=== PATIENT | male | born 1975 | race Caucasian/White ===

== ENCOUNTER → 2017-01-10 | Outpatient (CLI) | payer SELFPAY ==
[2017-01-10 09:53] LABS: BASO % 0.5 % (0.0-1.0); EOS # 0.2 K/mm3 (0.0-0.50); EOS % 1.5 % (0.0-3.0); LYMPH # 2.7 K/mm3 (1.5-4.5); LYMPH % 22.8 % (24.0-44.0); MEAN CORPUSCULAR HEMOGLOBIN 30.8 pg (27.0-33.0); MEAN CORPUSCULAR VOLUME 88.1 fl (80.0-96.0); MONO # 0.5 K/mm3 (0.0-0.8); MONO % 4.4 % (0.0-5.0); NEUTROPHILS # 7.5 K/mm3 (1.8-7.7); NEUTROPHILS % 68.6 % (36.0-66.0); RED CELL DISTRIBUTION WIDTH 12.7 % (11.5-14.5); WHITE BLOOD COUNT 10.9 K/mm3 (4.0-10.0)
[2017-01-10 10:38] LABS: ALBUMIN 3.9 GM/DL (3.2-5.2); ALBUMIN/GLOBULIN RATIO 1.11 (1.00-1.93); ALKALINE PHOSPHATASE 73 U/L (45-117); ALT/SGPT 22 U/L (12-78); ANION GAP 10 MEQ/L (8-16); AST/SGOT 12 U/L (15-37); BILIRUBIN,TOTAL 0.5 MG/DL (0.2-1.0); BLOOD UREA NITROGEN 16 MG/DL (7-18); CALCIUM LEVEL 8.7 MG/DL (8.5-10.1); CARBON DIOXIDE LEVEL 26 MEQ/L (21-32); CHLORIDE LEVEL 99 MEQ/L (98-107); CHOLESTEROL LEVEL 290 MG/DL (<200); CREATININE FOR GFR 0.67 MG/DL (0.70-1.30); GLOMERULAR FILTRATION RATE > 60.0 (>60); GLUCOSE, FASTING 260 MG/DL (70-105); POTASSIUM SERUM 4.1 MEQ/L (3.5-5.1); SODIUM LEVEL 135 MEQ/L (136-145); TOTAL PROTEIN 7.4 GM/DL (6.4-8.2); TRIGLYCERIDES LEVEL 892 MG/DL (<150)
== END ==
LOC: M LAB 09:14
PROVIDERS: ATTEND Physician Assistant Medical
DX: E11.9 Type 2 diabetes mellitus without complications (principal)

== ENCOUNTER → 2017-03-07 | Outpatient (CLI) | payer MEDICAID ==
[2017-03-07 08:24] LABS: ALBUMIN/GLOBULIN RATIO 1.11 (1.00-1.93); ALKALINE PHOSPHATASE 73 U/L (45-117); ALT/SGPT 28 U/L (12-78); ANION GAP 7 MEQ/L (8-16); AST/SGOT 14 U/L (15-37); BILIRUBIN,TOTAL 0.4 MG/DL (0.2-1.0); BLOOD UREA NITROGEN 12 MG/DL (7-18); CALCIUM LEVEL 9.5 MG/DL (8.5-10.1); CARBON DIOXIDE LEVEL 29 MEQ/L (21-32); CHLORIDE LEVEL 103 MEQ/L (98-107); CHOLESTEROL LEVEL 130 MG/DL (<200); CREATININE FOR GFR 0.74 MG/DL (0.70-1.30); GLOMERULAR FILTRATION RATE > 60.0 (>60); GLUCOSE, FASTING 157 MG/DL (70-105); POTASSIUM SERUM 4.6 MEQ/L (3.5-5.1); SODIUM LEVEL 139 MEQ/L (136-145); TOTAL PROTEIN 7.6 GM/DL (6.4-8.2); TRIGLYCERIDES LEVEL 189 MG/DL (<150)
== END ==
LOC: M LAB 06:35
PROVIDERS: ATTEND Physician Assistant Medical
DX: E11.9 Type 2 diabetes mellitus without complications (principal)

== ENCOUNTER → 2017-05-11 | Outpatient (CLI) | payer OTHER ==
[2017-05-11 11:26] LABS: BLOOD UREA NITROGEN 14 MG/DL (7-18); CREATININE FOR GFR 0.66 MG/DL (0.70-1.30); GLOMERULAR FILTRATION RATE > 60.0 (>60); GLUCOSE, FASTING 134 MG/DL (70-105); SODIUM LEVEL 140 MEQ/L (136-145)
[2017-05-11 11:27] LABS: ALKALINE PHOSPHATASE 71 U/L (45-117); ALT/SGPT 25 U/L (12-78); ANION GAP 8 MEQ/L (8-16); AST/SGOT 13 U/L (15-37); BILIRUBIN,TOTAL 0.5 MG/DL (0.2-1.0); CARBON DIOXIDE LEVEL 27 MEQ/L (21-32); CHLORIDE LEVEL 105 MEQ/L (98-107); CHOLESTEROL LEVEL 119 MG/DL (<200); POTASSIUM SERUM 5.3 MEQ/L (3.5-5.1); TRIGLYCERIDES LEVEL 174 MG/DL (<150)
[2017-05-11 11:28] LABS: ALBUMIN 4.1 GM/DL (3.2-5.2); ALBUMIN/GLOBULIN RATIO 1.21 (1.00-1.93); TOTAL PROTEIN 7.5 GM/DL (6.4-8.2)
== END ==
LOC: M LAB 09:20
PROVIDERS: ATTEND Physician Assistant Medical
DX: E11.9 Type 2 diabetes mellitus without complications (principal)

== ENCOUNTER → 2017-06-13 | Outpatient (CLI) | payer OTHER ==
[2017-06-13 09:51] LABS: ALBUMIN 4.1 GM/DL (3.2-5.2); ALBUMIN/GLOBULIN RATIO 1.11 (1.00-1.93); ALKALINE PHOSPHATASE 67 U/L (45-117); ALT/SGPT 25 U/L (12-78); ANION GAP 9 MEQ/L (8-16); AST/SGOT 14 U/L (15-37); BILIRUBIN,TOTAL 0.5 MG/DL (0.2-1.0); BLOOD UREA NITROGEN 16 MG/DL (7-18); CALCIUM LEVEL 9.6 MG/DL (8.5-10.1); CARBON DIOXIDE LEVEL 27 MEQ/L (21-32); CHLORIDE LEVEL 104 MEQ/L (98-107); CREATININE FOR GFR 0.64 MG/DL (0.70-1.30); GLOMERULAR FILTRATION RATE > 60.0 (>60); GLUCOSE, FASTING 126 MG/DL (70-105); POTASSIUM SERUM 5.1 MEQ/L (3.5-5.1); SODIUM LEVEL 140 MEQ/L (136-145); THYROXINE (T4) 8.6 UG/DL (4.5-12.0); TOTAL PROTEIN 7.8 GM/DL (6.4-8.2)
== END ==
LOC: M LAB 08:41
PROVIDERS: ATTEND Physician Assistant Medical
DX: E11.9 Type 2 diabetes mellitus without complications (principal)

== ENCOUNTER → 2017-12-26 | Outpatient (CLI) | payer OTHER ==
[2017-12-26 12:37] LABS: BASO # 0.1 10^3/uL (0.0-0.2); BASO % 0.6 % (0.0-1.0); EOS # 0.2 10^3/uL (0.0-0.50); EOS % 1.1 % (0.0-3.0); HEMATOCRIT 45.6 % (42.0-52.0); IMMATURE GRANULOCYTE % 0.4 % (0-3.0); LYMPH # 3.4 10^3/uL (1.5-4.5); LYMPH % 22.5 % (24.0-44.0); MEAN CORPUSCULAR HEMOGLOBIN 30.5 pg (27.0-33.0); MEAN CORPUSCULAR HGB CONC 35.1 g/dl (32.0-36.5); MONO # 0.9 10^3/uL (0.0-0.8); MONO % 6.3 % (0.0-5.0); NEUTROPHILS # 10.4 10^3/uL (1.8-7.7); NEUTROPHILS % 69.1 % (36.0-66.0); PLATELET COUNT, AUTOMATED 237 10^3/uL (150-450); RED BLOOD COUNT 5.24 10^6/uL (4.30-6.10); RED CELL DISTRIBUTION WIDTH 12.6 % (11.5-14.5)
[2017-12-26 12:54] LABS: ALBUMIN 4.3 GM/DL (3.2-5.2); ALBUMIN/GLOBULIN RATIO 1.26 (1.00-1.93); ALKALINE PHOSPHATASE 70 U/L (45-117); ALT/SGPT 33 U/L (12-78); ANION GAP 6 MEQ/L (8-16); AST/SGOT 18 U/L (7-37); BILIRUBIN,TOTAL 0.8 MG/DL (0.2-1.0); BLOOD UREA NITROGEN 17 MG/DL (7-18); CALCIUM LEVEL 9.1 MG/DL (8.5-10.1); CARBON DIOXIDE LEVEL 28 MEQ/L (21-32); CHLORIDE LEVEL 105 MEQ/L (98-107); CHOLESTEROL LEVEL 108 MG/DL (<200); CHOLESTEROL RISK RATIO 3.375 (<5); CREATININE FOR GFR 0.59 MG/DL (0.70-1.30); GLOMERULAR FILTRATION RATE > 60.0 (>60); GLUCOSE, FASTING 112 MG/DL (70-100); HDL CHOLESTEROL 32 MG/DL (>40); LDL CHOLESTEROL 49.8 MG/DL (<100); NON-HDL-C 76 MG/DL; POTASSIUM SERUM 4.2 MEQ/L (3.5-5.1); SODIUM LEVEL 139 MEQ/L (136-145); TOTAL PROTEIN 7.7 GM/DL (6.4-8.2); TRIGLYCERIDES LEVEL 131 MG/DL (<150)
== END ==
LOC: M ADAMS 10:57
DX: E11.69 Type 2 diabetes mellitus with other specified complication (principal)
CPT/HCPCS: 80053

== ENCOUNTER → 2018-01-16 | Outpatient (REF) | payer OTHER | LOC: M SFHCADAM 18:35 | DX: J02.9 Acute pharyngitis, unspecified (principal) ==

== ENCOUNTER → 2018-05-15 | Outpatient (REF) | payer OTHER ==
[2018-05-15 12:55] LABS: BASO # 0.1 10^3/uL (0.0-0.2); BASO % 0.8 % (0.0-1.0); EOS # 0.3 10^3/uL (0.0-0.50); EOS % 2.9 % (0.0-3.0); HEMATOCRIT 44.6 % (42.0-52.0); HEMOGLOBIN 15.1 g/dl (13.5-17.5); IMMATURE GRANULOCYTE % 0.7 % (0-3.0); LYMPH # 2.8 10^3/uL (1.5-4.5); MEAN CORPUSCULAR HEMOGLOBIN 30.3 pg (27.0-33.0); MEAN CORPUSCULAR HGB CONC 33.9 g/dl (32.0-36.5); MEAN CORPUSCULAR VOLUME 89.6 fl (80.0-96.0); MONO # 0.7 10^3/uL (0.0-0.8); MONO % 7.2 % (0.0-5.0); NEUTROPHILS # 5.2 10^3/uL (1.8-7.7); NEUTROPHILS % 57.4 % (36.0-66.0); PLATELET COUNT, AUTOMATED 222 10^3/uL (150-450); RED BLOOD COUNT 4.98 10^6/uL (4.30-6.10); RED CELL DISTRIBUTION WIDTH 12.9 % (11.5-14.5)
[2018-05-15 13:51] LABS: ERYTHROCYTE SEDIMENTATION RATE 14 mm/hr (0-15)
[2018-05-15 14:05] LABS: ALBUMIN 3.9 GM/DL (3.2-5.2); ALBUMIN/GLOBULIN RATIO 1.08 (1.00-1.93); ALKALINE PHOSPHATASE 85 U/L (45-117); ALT/SGPT 27 U/L (12-78); ANION GAP 8 MEQ/L (8-16); AST/SGOT 12 U/L (7-37); BILIRUBIN,TOTAL 0.4 MG/DL (0.2-1.0); BLOOD UREA NITROGEN 15 MG/DL (7-18); C REACTIVE PROTEIN QUANTITATIV 0.51 MG/DL (0.00-0.30); CALCIUM LEVEL 8.9 MG/DL (8.5-10.1); CARBON DIOXIDE LEVEL 26 MEQ/L (21-32); CHLORIDE LEVEL 106 MEQ/L (98-107); CREATININE FOR GFR 0.58 MG/DL (0.70-1.30); GLOMERULAR FILTRATION RATE > 60.0 (>60); GLUCOSE, FASTING 128 MG/DL (70-100); POTASSIUM SERUM 4.5 MEQ/L (3.5-5.1); RHEUMATOID FACTOR QUANT < 10.0 IU/ML (<15.0); SODIUM LEVEL 140 MEQ/L (136-145); TOTAL PROTEIN 7.5 GM/DL (6.4-8.2)
[2018-05-15 16:50] LABS: ESTIMATED AVERAGE GLUCOSE 186 MG/DL (60-110); HEMOGLOBIN A1c 8.1 %
[2018-05-16 14:28] LABS: ANTINUCLEAR ANTIBODIES DIRECT Negative (Negative)
== END ==
LOC: M LABDRAW1 12:29
DX: M25.541 Pain in joints of right hand (principal)

== ENCOUNTER → 2018-05-22 | Outpatient (REF) | payer OTHER ==
[2018-05-22 13:36] LABS: MALB URINE SIEMENS 68.8 MG/L; MAU/CREAT RATIO 59.8 MCG/MG (0.0-30.0)
== END ==
LOC: M SFHCADAM 08:32
DX: E11.69 Type 2 diabetes mellitus with other specified complication (principal)
CPT/HCPCS: 82043

== ENCOUNTER → 2018-10-18 | Outpatient (CLI) | payer OTHER ==
--- NOTE | 2018-10-18 14:32 | REP ---
CT Head without contrast HISTORY: Headache COMPARISON: None There is no intraparenchymal hemorrhage, acute infarct, mass or midline shift. The ventricular system is normal in appearance. There is no extra cerebral collection. There is no fracture. The visualized sinuses are clear. IMPRESSION: There is no intracranial lesion. Electronically Signed by Kraig Martin MD 10/18/2018 02:23 P
== END ==
LOC: M RAD 14:02
PROVIDERS: ATTEND Family Medicine
DX: G44.52 New daily persistent headache (NDPH) (principal)

== ENCOUNTER 2019-09-24 11:16 | Emergency (ER) | payer OTHER, SELFPAY ==
[~2019-09-24] VITALS: Ht 167.6 cm; Wt 86.7 kg
[2019-09-24] MEDS ORDERED: ATOR40TA75 (11:22)
[2019-09-24] MEDS ORDERED: STEG5TAB (11:22)
[2019-09-24] MEDS ORDERED: METF10004 (11:22)
[2019-09-24] MEDS ORDERED: TRUL0.5I (11:22)
[2019-09-24] MEDS ORDERED: LISI-542 (11:22)
[2019-09-24] MEDS ORDERED: GEMF600T5 (11:22)
[2019-09-24 11:57] LABS: BASO # 0.1 10^3/uL (0.0-0.2); BASO % 0.8 % (0.0-1.0); EOS # 0.1 10^3/uL (0.0-0.5); EOS % 1.7 % (0.0-3.0); HEMATOCRIT 44.1 % (42.0-52.0); HEMOGLOBIN 15.4 g/dl (13.5-17.5); LYMPH % 35.3 % (24.0-44.0); MEAN CORPUSCULAR HEMOGLOBIN 31.2 pg (27.0-33.0); MEAN CORPUSCULAR HGB CONC 34.9 g/dl (32.0-36.5); MEAN CORPUSCULAR VOLUME 89.3 fl (80.0-96.0); MONO # 0.8 10^3/uL (0.0-0.8); MONO % 9.6 % (0.0-5.0); NEUTROPHILS # 4.4 10^3/uL (1.5-8.5); PLATELET COUNT, AUTOMATED 223 10^3/uL (150-450); RED BLOOD COUNT 4.94 10^6/uL (4.30-6.10); WHITE BLOOD COUNT 8.4 10^3/uL (4.0-10.0)
[2019-09-24] MEDS ORDERED: NS 1,000 ML IV ONE (12:00)
[2019-09-24 12:24] LABS: ALBUMIN 3.9 GM/DL (3.2-5.2); ALT/SGPT 23 U/L (12-78); BILIRUBIN,DIRECT 0.2 MG/DL (0.0-0.2); BILIRUBIN,TOTAL 0.5 MG/DL (0.2-1.0); BLOOD UREA NITROGEN 12 MG/DL (7-18); CALCIUM LEVEL 9.1 MG/DL (8.5-10.1); CARBON DIOXIDE LEVEL 25 MEQ/L (21-32); CHLORIDE LEVEL 105 MEQ/L (98-107); CREATININE FOR GFR 0.81 MG/DL (0.70-1.30); GLOMERULAR FILTRATION RATE > 60.0 (>60); GLUCOSE, FASTING 269 MG/DL (70-100); LIPASE 436 U/L (73-393); POTASSIUM SERUM 4.1 MEQ/L (3.5-5.1); SODIUM LEVEL 136 MEQ/L (136-145); TOTAL PROTEIN 7.2 GM/DL (6.4-8.2)
[2019-09-24] MEDS ORDERED: ISOVUE-370 76% 100ML VIAL (Q9967) As Ordered ONE (12:40)
--- NOTE | 2019-09-24 13:23 | REP ---
Clinical: Left upper quadrant pain. History pancreatitis. Technique: Axial contrast enhanced images from the lung bases to the pubic symphysis with coronal and sagittal re-formations using 100 ml Isovue 370 intravenous contrast material. Comparison: None. Findings: Large multicystic changes in the left upper quadrant consistent with pseudocysts related to given history of prior pancreatitis. The largest obvious collection measures greater than 11.9 x 8.2 x 12.0 cm. The pancreas itself is otherwise normal and no peripancreatic inflammatory stranding is noted. Fatty infiltration to the liver doubt focal hepatic lesion. Spleen, gallbladder, bilateral adrenal glands and kidneys are relatively normal. The enteric system is without obstruction or acute inflammatory process. Diverticulosis noted without acute diverticulitis. Pelvis demonstrates normal prostate/seminal vesicles and bladder. No ascites. No free air. No adenopathy. Abdominal aorta without aneurysm or dissection. Osseous structures are intact. Lung bases are clear. Impression: Large multicystic changes in the left upper quadrant consistent with pseudocysts related to prior pancreatitis. Electronically Signed by Tyler Love MD 09/24/2019 01:15 P
[2019-09-24 13:48] LABS: AMYLASE 66 U/L (25-115)
[2019-09-24] MEDS ORDERED: KETOROLAC 30 MG/ML VIAL (J1885) IV ONE (14:00)
[2019-09-24] MEDS ORDERED: ACETAMINOPHEN 325 MG TAB PO ONE (14:00)
[2019-09-24 15:40] VITALS: BP 115/71
--- NOTE | 2019-09-26 08:12 | ED PDOC ---
Post-Departure Follow-Up guy bass faxed fomral report of ct abd/p for fu Basil Perez MD Sep 26, 2019 08:12
== END 2019-09-24 15:47 | disposition home or self-care (01) ==
LOC: M ED 11:16
DX: K85.90 Acute pancreatitis without necrosis or infection, unspecified (principal); E11.9 Type 2 diabetes mellitus without complications; I10 Essential (primary) hypertension; E78.5 Hyperlipidemia, unspecified; Z79.899 Other long term (current) drug therapy; Z79.84 Long term (current) use of oral hypoglycemic drugs; F17.210 Nicotine dependence, cigarettes, uncomplicated
CPT/HCPCS: 36415; 74177; 80048; 80076; 81001; 82150; 83690; 85025; 96361; 96374; 99284; J1885; Q9967

== ENCOUNTER 2019-10-11 15:46 | Inpatient (IN) | payer OTHER ==
[~2019-10-11] VITALS: Ht 167.6 cm; Wt 88.5 kg
[~2019-10-11 15:46] MED LIST: ATOR40TA75 PO; GEMF600T5 PO; LISI-542 PO; METF10004 PO; STEG5TAB PO; TRUL0.5I SC
[2019-10-11] MEDS ORDERED: ONE A DAY VIT (15:53)
[2019-10-11 16:25] LABS: BASO # 0.1 10^3/uL (0.0-0.2); BASO % 0.6 % (0.0-1.0); EOS # 0.1 10^3/uL (0.0-0.5); EOS % 1.1 % (0.0-3.0); HEMATOCRIT 48.1 % (42.0-52.0); HEMOGLOBIN 16.2 g/dl (13.5-17.5); LYMPH # 3.6 10^3/uL (1.5-5.0); LYMPH % 29.6 % (24.0-44.0); MEAN CORPUSCULAR HEMOGLOBIN 30.5 pg (27.0-33.0); MEAN CORPUSCULAR HGB CONC 33.7 g/dl (32.0-36.5); MEAN CORPUSCULAR VOLUME 90.4 fl (80.0-96.0); MONO # 0.9 10^3/uL (0.0-0.8); MONO % 7.5 % (0.0-5.0); NEUTROPHILS # 7.4 10^3/uL (1.5-8.5); NEUTROPHILS % 60.5 % (36.0-66.0); PLATELET COUNT, AUTOMATED 250 10^3/uL (150-450); RED BLOOD COUNT 5.32 10^6/uL (4.30-6.10); WHITE BLOOD COUNT 12.2 10^3/uL (4.0-10.0)
[2019-10-11 16:59] LABS: ALBUMIN 4.2 GM/DL (3.2-5.2); ALT/SGPT 26 U/L (12-78); BILIRUBIN,DIRECT < 0.1 MG/DL (0.0-0.2); BILIRUBIN,TOTAL 0.4 MG/DL (0.2-1.0); LIPASE 1658 U/L (73-393); TOTAL PROTEIN 7.7 GM/DL (6.4-8.2)
[2019-10-11] MEDS ORDERED: NS 1,000 ML IV ONE (17:15)
--- NOTE | 2019-10-11 17:28 | REP ---
Chest x-ray: Two views. History: Abdominal pain . Comparison study: June 25, 2016 . Findings: The lungs are well inflated and free of infiltrate. The pleural angles are sharp. The heart size is normal. Pulmonary vasculature is not increased. No significant bony abnormality is seen. Impression: Negative chest x-ray. Electronically Signed by Jaguar Rae MD 10/11/2019 05:19 P
[2019-10-11] MEDS ORDERED: ISOVUE-370 76% 100ML VIAL (Q9967) As Ordered ONE (17:40)
[2019-10-11 17:55] LABS: AMYLASE 91 U/L (25-115)
--- NOTE | 2019-10-11 18:09 | REPVR ---
PROCEDURE INFORMATION: Exam: CT Abdomen And Pelvis With Contrast Exam date and time: 10/11/2019 5:42 PM Age: 43 years old Clinical indication: Abdominal pain; Localized; Left upper quadrant (luq); Additional info: Luq pain, pancreatitis, R/O complications TECHNIQUE: Imaging protocol: Computed tomography of the abdomen and pelvis with intravenous contrast. Radiation optimization: All CT scans at this facility use at least one of these dose optimization techniques: automated exposure control; mA and/or kV adjustment per patient size (includes targeted exams where dose is matched to clinical indication); or iterative reconstruction. Contrast material: ISOVUE 370; Contrast volume: 100 ml; Contrast route: IV; COMPARISON: CT ABD/PEL W/IV CONTRAST ONLY 09/24/2019 12:56 PM FINDINGS: Lungs: There is bibasilar compressive atelectasis. Liver: Moderate central spinal stenosis L4-L5 with a posterior disc protrusion.There is a diffuse decrease in hepatic parenchymal density, consistent with fatty infiltration. Gallbladder and bile ducts: Normal. No calcified stones. No ductal dilation. Pancreas: There is a large multilocular cystic pancreatic tail mass measuring measuring 14.4 x 7.6 x 14.4 cm. Lesion demonstrates multiple thin and thick septations as well as a partially calcified scar superiorly. 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 Lesion is stable in comparison to the prior study. Spleen: Normal. No splenomegaly. Adrenals: Normal. No mass. Kidneys and ureters: There is mass effect on the lateral margin of the left kidney by the above described pancreatic mass. Kidneys otherwise unremarkable. Stomach and bowel: Unremarkable. No obstruction. No mucosal thickening. Appendix: No evidence of appendicitis. Intraperitoneal space: Unremarkable. No free air. No significant fluid collection. Vasculature: Unremarkable. No abdominal aortic aneurysm. Lymph nodes: Unremarkable. No enlarged lymph nodes. Bladder: Unremarkable as visualized. Reproductive: The prostate gland demonstrates mild hyperplasia. Bones/joints: Unremarkable. No acute fracture. Soft tissues: Unremarkable. IMPRESSION: 1. Moderate central spinal stenosis L4-L5 with a posterior disc protrusion.There is a diffuse decrease in hepatic parenchymal density, consistent with fatty infiltration. 2. Multilocular cystic pancreatic tail mass consistent with a serous cystic neoplasm. Finding is stable as noted above. 3. Mild prostatic hyperplasia. Electronically signed by: Jaydon Penny On 10/11/2019 18:08:38 PM
[2019-10-11] MEDS ORDERED: VITMTA PO (19:08)
--- NOTE | 2019-10-11 19:09 | HPEPDOC ---
[facility] Medical History & Physical Date of Admission Oct 11, 2019 Date of Service: Oct 11, 2019 Primary Care Physician: Abdelrahman Almeida MD Attending Physician: HARRY MORRIS DO History and Physical TIME OF SERVICE: 7:50 PM CHIEF COMPLAINT: Abdominal pain HISTORY OF PRESENT ILLNESS: This is a 43-year-old male who presented with complaints of left upper quadrant pain that radiates to his back since September 24. Associated symptoms include nausea, vomiting and poor appetite. CT of the abdomen done on September 24 showed multicystic changes consistent with pseudocyst and prior pancreatitis. Unfortunately, over the S2 weeks pain has become worse. Since the ER today by his PCP. Repeat CT showed a left cystic pancreatic tail mass that's 14.4 x 7 x 14.4 cm; according to the radiologist. This was concerning for pancreatic serocystic neoplasm . REVIEW OF SYSTEMS: 12 point review of systems negative except as listed in HPI PAST MEDICAL/ SURGICAL HISTORY: Type 2 diabetes. Chronic hypertension History of pancreatitis Hyperlipidemia. Left inguinal hernia repair SOCIAL HISTORY: He smokes. He drinks alcohol occasionally FAMILY HISTORY: Diabetes CAD Atrial fibrillation ALLERGIES: Please see below. HOME MEDICATIONS: Please see below. PHYSICAL EXAMINATION: VITAL SIGNS: Please see below. GEN: well-nourished / well developed/ anxious INTEGUMENT: No Donnelly sign, no Tryon's sign HEENT: NCAT CVS: RRR/NMRG/ LUNGS: able to speak full sentences without stopping to take a breath / no coughing / lungs are clear to auscultation bilaterally on room air ABDOMEN: Contour (obese) / the abdomen is tender with palpation MSK/EXTREMITIES: range of motion intact in all 4 extremities NEURO: CN 2-12 are grossly intact / speech is not dysarthric PSYCH: alert and oriented to person place and time/ able to understand and follow all commands / LABORATORY DATA: See below. IMAGING: CT of the abdomen September 24 2019 "Findings: Large multicystic changes in the left upper quadrant consistent with pseudocysts related to given history of prior pancreatitis. The largest obvious collection measures greater than 11.9 x 8.2 x 12.0 cm. The pancreas itself is otherwise n ormal and no peripancreatic inflammatory stranding is noted. Fatty infiltration to the liver doubt focal hepatic lesion. Spleen, gallbladder, bilateral adrenal glands and kidneys are relatively normal. The enteric system is without obstruction or acute inflammatory process. Diverticulosis noted without acute diverticulitis. Pelvis demonstrates normal prostate/seminal vesicles and bladder. No ascites. No free air. No adenopathy. Abdominal aorta without aneurysm or dissection. Osseous structures are intact. Lung bases are clear. Impression: Large multicystic changes in the left upper quadrant consistent with pseudocysts related to prior pancreatitis. CT of abdomen October 11 2019 "FINDINGS: Lungs: There is bibasilar compressive atelectasis. Liver: Moderate central spinal stenosis L4-L5 with a posterior disc protrusion.There is a diffuse decrease in hepatic parenchymal density, consi stent with fatty infiltration. Gallbladder and bile ducts: Normal. No calcified stones. No ductal dilation. Pancreas: There is a large multilocular cystic pancreatic tail mass measuring measuring 14.4 x 7.6 x 14.4 cm. Lesion demonstrates multiple thin and thick septations as well as a partially calcified scar superiorly. 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 Lesion is stable in comparison to the prior study. Spleen: Normal. No splenomegaly. Adrenals: Normal. No mass. Kidneys and ureters: There is mass effect on the lateral margin of the left kidney by the above described pancreatic mass. Kidneys otherwise unremarkable. Stomach and bowel: Unremarkable. No obstruction. No mucosal thickening. Appendix: No evidence of appendicitis. Intraperitoneal space: Unremarkable. No free air. No significant fluid collection. Vasculature: Unremarkable. No abdominal aortic aneurysm. Lymph nodes: Unremarkable. No enlarged lymph nodes. Bladder: Unremarkable as visualized. Reproductive: The prostate gland demonstrates mild hyperplasia. Bones/joints: Unremarkable. No acute fracture. Soft tissues: Unremarkable. IMPRESSION: 1. Moderate central spinal stenosis L4-L5 with a posterior disc protrusion.There is a diffuse decrease in hepatic parenchymal density, consistent with fatty infiltration. 2. Multilocular cystic pancreatic tail mass consistent with a serous cystic neoplasm. Finding is stable as noted above. 3. Mild prostatic hyperplasia. " MICROBIOLOGY: Please see below. ASSESSMENT: Mr. Nieves is a 43-year-old with a past medical history of diabetes, hypertension, pancreatitis, and hyperlipidemia, who is admitted for management of pain related to acute pancreatitis/pancreatic mass. PLAN: 1. Pancreatic tail mass/acute pancreatitis Diagnosis made on the basis of abdominal pain + elevated lipase His LFTs are within normal limits therefore obstruction is unlikely Plan: Clear liquid diet/ IVF / morphine PRN with scheduled gabapentin for pain / the daytime team may consult IR for biopsy / hold lisinopril as it can also cause worsening of the pancreatitis 2. Diabetes Plan: f/u accuchecks & A1C / hypoglycemia protocol / sliding scale insulin / hold oral anti-glycemics 3. Chronic hypertension. Plan: Hold lisinopril/start amlodipine 4. Tobacco abuse Tobacco cessation education/nicotine patch 5. Obesity BMI 30.9. He has coexisting diabetes. This complicates care Plan: can f/u w PCP for STOP BANG questionnaire, media senior recruiter consult DVT prophylaxis with SCDs in case gets a biopsy DISPOSITION: Likely home after more than 2 midnight's stay Vital Signs Vital Signs Date Time Temp Pulse Resp B/P (MAP) Pulse Ox O2 Delivery O2 Flow Rate FiO2 10/11/19 16:14 10/11/19 15:46 98.9 113 18 98 Room Air Laboratory Data Labs 24H Laboratory Tests 2 10/11/19 16:06: Immature Granulocyte % (Auto) 0.7, Neutrophils (%) (Auto) 60.5, Lymphocytes (%) (Auto) 29.6, Monocytes (%) (Auto) 7.5H, Eosinophils (%) (Auto) 1.1, Basophils (%) (Auto) 0.6, Neutrophils # (Auto) 7.4, Lymphocytes # (Auto) 3.6, Monocytes # (Auto) 0.9H, Eosinophils # (Auto) 0.1, Basophils # (Auto) 0.1, Nucleated Red Blood Cells % (auto) 0.0, Urine Color YELLOW, Urine Appearance CLEAR, Urine pH 6.0, Urine Specific [place] 1.032, Urine Protein NEGATIVE, Urine Glucose (UA) 3+H, Urine Ketones NEGATIVE, Urine Blood NEGATIVE, Urine Nitrite NEGATIVE, Urine Bilirubin NEGATIVE, Urine Urobilinogen 0.2, Urine Leukocyte Esterase NEGATIVE, Urine WBC (Auto) 4H, Urine RBC (Auto) 2, Urine Hyaline Casts (Auto) 0, Urine Bacteria (Auto) NEGATIVE, Urine Squamous Epithelial Cells 1, Urine Mucus (Auto) SMALL, Urine Sperm (Auto) , Total Bilirubin 0.4, Direct Bilirubin < 0.1, Aspartate Amino Transf (AST/SGOT) 16, Alanine Aminotransferase (ALT/SGPT) 26, Alkaline Phosphatase 75, Total Protein 7.7, Albumin 4.2, Albumin/Globulin Ratio 1.20, Amylase Level 91, Lipase 1658H 10/11/19 16:08: POC Glucose (Misc Panel) 223H, POC Sodium (Misc Panel) 136, POC Potassium (Misc Panel) 3.6, POC Chloride (Misc Panel) 100, POC Total CO2 (Misc Panel) 26.0, POC Blood Urea Nitrogen (Misc Panel 18, POC Ionized Calcium (Misc Panel) 4.7, POC Creatinine (Misc Panel) 0.6, POC Hematocrit (Misc Panel) 47.0 CBC/BMP Laboratory Tests 10/11/19 16:06 Home Medications Scheduled Atorvastatin Calcium (Atorvastatin Calcium) 40 Mg Tablet, 40 MG PO DAILY Dulaglutide (Trulicity) 1.5 Mg/0.5 Ml Pen.injctr, 1.5 MG SC QWEEK SUNDAYS Ertugliflozin Pidolate (Steglatro) 5 Mg Tablet, 5 MG PO DAILY Gemfibrozil (Gemfibrozil) 600 Mg Tablet, 600 MG PO BID Lisinopril (Lisinopril) 5 Mg Tablet, 5 MG PO DAILY Metformin HCl (Metformin HCl) 1,000 Mg Tablet, 1,000 MG PO BID Multivitamins (Thera M Plus Tablet) 1 Each Tablet, 1 TAB PO DAILY Allergies Coded Allergies: No Known Drug Allergies (Verified Allergy, Unknown, 09/24/19) A-FIB/CHADSVASC A-FIB History Current/History of A-Fib/PAF?: No Current PO Anticoag Therapy: No SILVESTRE GÓMEZ MD Oct 11, 2019 19:09
[2019-10-11] MEDS: NS 1,000 ML IV SCH ×2 (19:15→23:02)
[2019-10-11 20:45] VITALS: BP 108/70
[2019-10-11] MEDS ORDERED: GLUCAGON FOR INJ 1 MG VIAL (J1610) SC PRN (20:45)
[2019-10-11] MEDS ORDERED: ENTER DRUG NAME HERE (PATIENT'S OWN MED) SC SCH (20:45)
[2019-10-11] MEDS ORDERED: GLUCOSE 4 GM CHEW TABLET PO PRN (20:45)
[2019-10-11] MEDS ORDERED: DEXTROSE 50% 50 ML SYRINGE IV PRN (20:45)
[2019-10-11] MEDS: HumaLOG INSULIN (NovoLOG) PER UNIT SC SCH (21:00)
[2019-10-11] MEDS: NICOTINE 21MG/24HR 1 EA TRANSDERMAL TD SCH (21:47)
[2019-10-11] MEDS: GABAPENTIN 300 MG CAP PO SCH ×2 (22:30→23:02)
[2019-10-12] MEDS: MORPHINE 4 MG/ML 1ML VIAL/SYRINGE (J2270) IV PRN ×3 (05:48→15:39)
[2019-10-12 06:00] VITALS: BP 108/68
[2019-10-12 06:34] LABS: HEMATOCRIT 43.2 % (42.0-52.0); HEMOGLOBIN 14.6 g/dl (13.5-17.5); MEAN CORPUSCULAR HEMOGLOBIN 30.7 pg (27.0-33.0); MEAN CORPUSCULAR HGB CONC 33.8 g/dl (32.0-36.5); MEAN CORPUSCULAR VOLUME 90.9 fl (80.0-96.0); PLATELET COUNT, AUTOMATED 208 10^3/uL (150-450); RED BLOOD COUNT 4.75 10^6/uL (4.30-6.10); WHITE BLOOD COUNT 9.7 10^3/uL (4.0-10.0)
[2019-10-12 07:07] LABS: BLOOD UREA NITROGEN 15 MG/DL (7-18); CALCIUM LEVEL 8.3 MG/DL (8.5-10.1); CARBON DIOXIDE LEVEL 23 MEQ/L (21-32); CHLORIDE LEVEL 108 MEQ/L (98-107); CREATININE FOR GFR 0.74 MG/DL (0.70-1.30); GLOMERULAR FILTRATION RATE > 60.0 (>60); GLUCOSE, FASTING 146 MG/DL (70-100); MAGNESIUM LEVEL 1.8 MG/DL (1.8-2.4); POTASSIUM SERUM 3.5 MEQ/L (3.5-5.1); SODIUM LEVEL 139 MEQ/L (136-145)
[2019-10-12] MEDS: HumaLOG INSULIN (NovoLOG) PER UNIT SC SCH ×4 (07:30→20:17)
[2019-10-12] MEDS: ATORVASTATIN 20 MG TAB PO SCH (07:46)
[2019-10-12] MEDS: GABAPENTIN 300 MG CAP PO SCH ×3 (07:46→20:06)
[2019-10-12] MEDS ORDERED: ENOXAPARIN 40 MG/0.4 ML SYRINGE (J1650) SC SCH (09:00)
--- NOTE | 2019-10-12 09:25 | IPNPDOC ---
Subjective Date Seen The patient was seen on 10/12/19. Subjective Chief Complaint/HPI Still with epigastric pain. Can't tolerate even clear liquids. Morphine given this am helped but is wearing off already. Constitutional: Denies: Chills, Fever Pulmonary: Denies: Dyspnea, Cough Cardiovascular: Denies: Chest Pain, Palpitations Gastrointestinal: Reports: Nausea, Abdominal Pain; Denies: Vomiting, Diarrhea, Constipation Objective Physical Examination General Exam: Positive: Alert, No Acute Distress Chest Exam: Positive: Clear to auscultation; Negative: Rales, Rhonchi, Wheezing Heart Exam: Positive: Rate Normal, Regular Rhythm Abdomen Exam: Positive: Normal bowel sounds, Soft, Tenderness (very tender epigastrum) Assessment /Plan Problems (1) Pancreatitis, recurrent Status: Acute Problem Text: Cont IVF hydration -Increase rate Hold antihypertensives Morphine for pain and give Zofran for nausea Clear liquids as tolerated (2) Mass of pancreas Problem Text: I spoke with Dr. Wei this am who will see patient in consult to give opinion regarding ?keeley valle At this time he does not recommend transfer to [place] or for biopsy Patient and aware Plan/VTE VTE Prophylaxis Ordered?: Yes (Lovenox) VS, I&O, 24H, Fishbone Vital Signs/I&O Vital Signs Date Time Temp Pulse Resp B/P (MAP) Pulse Ox O2 Delivery O2 Flow Rate FiO2 10/12/19 06:00 97.7 95 18 108/68 (81) 93 Room Air I&O- Last 24 Hours up to 6 AM 10/12/19 06:00 Intake Total 1675 ml Output Total 550 ml Balance 1125 ml Laboratory Data 24H LABS Laboratory Tests 2 10/11/19 16:06: Immature Granulocyte % (Auto) 0.7, Neutrophils (%) (Auto) 60.5, Lymphocytes (%) (Auto) 29.6, Monocytes (%) (Auto) 7.5H, Eosinophils (%) (Auto) 1.1, Basophils (%) (Auto) 0.6, Neutrophils # (Auto) 7.4, Lymphocytes # (Auto) 3.6, Monocytes # (Auto) 0.9H, Eosinophils # (Auto) 0.1, Basophils # (Auto) 0.1, Nucleated Red Blood Cells % (auto) 0.0, Urine Color YELLOW, Urine Appearance CLEAR, Urine pH 6.0, Urine Specific Lane 1.032, Urine Protein NEGATIVE, Urine Glucose (UA) 3+H, Urine Ketones NEGATIVE, Urine Blood NEGATIVE, Urine Nitrite NEGATIVE, Urine Bilirubin NEGATIVE, Urine Urobilinogen 0.2, Urine Leukocyte Esterase NEGATIVE, Urine WBC (Auto) 4H, Urine RBC (Auto) 2, Urine Hyaline Casts (Auto) 0, Urine Bacteria (Auto) NEGATIVE, Urine Squamous Epithelial Cells 1, Urine Mucus (Auto) SMALL, Urine Sperm (Auto) , Total Bilirubin 0.4, Direct Bilirubin < 0.1, Aspartate Amino Transf (AST/SGOT) 16, Alanine Aminotransferase (ALT/SGPT) 26, Alkaline Phosphatase 75, Total Protein 7.7, Albumin 4.2, Albumin/Globulin Ratio 1.20, Amylase Level 91, Lipase 1658H 10/11/19 16:08: POC Glucose (Misc Panel) 223H, POC Sodium (Misc Panel) 136, POC Potassium (Misc Panel) 3.6, POC Chloride (Misc Panel) 100, POC Total CO2 (Misc Panel) 26.0, POC Blood Urea Nitrogen (Misc Panel 18, POC Ionized Calcium (Misc Panel) 4.7, POC Creatinine (Misc Panel) 0.6, POC Hematocrit (Misc Panel) 47.0 10/11/19 21:45: Bedside Glucose (Misc Panel) 134H 10/12/19 05:09: Nucleated Red Blood Cells % (auto) 0.0, Anion Gap 8, Glomerular Filtration Rate > 60.0, Calcium Level 8.3L, Magnesium Level 1.8 CBC/BMP Laboratory Tests 10/11/19 16:06 10/12/19 05:09 KAMILLE PRADO PA-C Oct 12, 2019 09:25
[2019-10-12] MEDS: KCL 40MEQ in NS 1000ML 1,000 ML IV SCH ×3 (10:14→20:07)
[2019-10-12] MEDS: ONDANSETRON 4MG/2ML VIAL (J2405) IV PRN ×2 (11:31→17:50)
[2019-10-12] MEDS ORDERED: KETOROLAC 30 MG/ML VIAL (J1885) As Ordered ONE (12:27)
[2019-10-12] MEDS: KETOROLAC 30 MG/ML VIAL (J1885) IV PRN ×2 (12:36→20:14)
[2019-10-12 14:00] VITALS: BP 107/64
--- NOTE | 2019-10-12 19:37 | CR.PDOC ---
General Surgery Consultation Date of Consultation 10/12/19 History and Physical REASON FOR CONSULTATION: Patient's CT abdomen and pelvis in the ED last night showed pancreatitis with a large pseudocyst versus mass in the tail of the pancreas. We were asked by the primary inpatient family medicine team to evaluate patient for possible workup of pancreatic mass. HISTORY OF PRESENT ILLNESS: Patient is a 43-year-old male who presented to the emergency department last night with the chief complaint of left upper quadrant abdominal pain and discomfort. Patient reports that he's had abdominal pain for the last few weeks's, since roughly 09/18/19. He also had some episodes of emesis over the past few weeks. He denies any changes in bowel movements or any dietary changes. She reports having pancreatitis in the past. He was seen recently in the emergency department and imaging at that time also showed a growth in the tail of the pancreas, but called it a pseudocyst. He states that he "hardly drinks alcohol." Initial imaging via CT abdomen and pelvis with IV contrast showed pancreatitis with a large pancreatic mass in the tail of the pancreas measuring approximately 14 cm x 7 cm x 14 cm. Initial labs appeared okay with the exception of lipase of 1600. Patient reports his pain today is similar to that of yesterday. He does not feel nauseated and has not vomited since being admitted. PAST MEDICAL HISTORY: Type 2 diabetes Chronic hypertension History of pancreatitis Hyperlipidemia PAST SURGICAL HISTORY: Left inguinal hernia repair ALLERGIES: Please see below. FAMILY HISTORY: Diabetes Coronary artery disease. Atrial fibrillation HOME MEDICATIONS: Please see below. REVIEW OF SYSTEMS: GENERAL: Denies fever or chills HEART: Eyes chest pain or palpitations. PULMONARY: Denies shortness of breath or cough GASTROINTESTINAL: Endorses epigastric and left upper quadrant abdominal pain that is similar to that of yesterday. Denies feeling nauseated at this time, also denies vomiting overnight or this morning. Patient further denies diarrhea or constipation. GENITOURINARY: [Denies dysuria, frequency, hematuria and nocturia]. ENDOCRINE: [Denies polydipsia, polyphagia, polyuria, heat or cold intolerance]. INFECTIOUS: [Denies any recent upper respiratory tract infection, UTI, need for use of antibiotics]. NUTRITION: [Reports good appetite]. PHYSICAL EXAMINATION: VITALS SIGNS: Please see below. GENERAL APPEARANCE: She is lying upright in bed at time of exam. He is a well- developed and well-nourished male. He is pleasant and cooperative, responding appropriately to questions and commands. He appears to be in no acute distress of any kind. HEENT: Normocephalic, atraumatic. Anicteric sclera. LUNGS: Clear to auscultation with no crackles, rhonchi or wheezing appreciated. HEART: Regular rate and rhythm, normal S1, S2. ABDOMEN: Soft, nondistended. Left upper quadrant and epigastric tenderness. No rmoactive bowel sounds are present. There is no guarding or rigidity. Assessment and plan: #Pancreatitis with mass of the pancreas -An endobronchial ultrasound to do a biopsy of the pancreatic mass is recommended, as the mass could be a pseudocyst secondary to the pancreatitis versus a serous neoplasm. The encouraging aspect of the mass is that it is located near the tail of the pancreas which means it would be resectable. The patient would have to be seen at another facility then [facility], such as soon the [facility], that has the capability to do an EUS biopsy. -At this time, the most important thing is to get the patient's pain under control and continue with pancreatitis treatment (nothing by mouth, IV fluids, pain management). Once this occurs, patient can then be referred to facility such as [facility] for the EUS. From a general surgery standpoint, we do not foresee immediate urgency in the care of Mr. Nieves as it relates to the mass. Getting his pancreatitis under control takes precedent. The location of the mass indicates that it would be resectable. There is also a good chance of the mass being benign in the event it is a neoplasm and not pseudocyst. There is also still the chance that it is multiple large pseudocysts appearing to be one giant mass, as the reading radiologist in late September 2019 called them a pseudocyst. -Possible consideration for a CT pancreas protocol is warranted since the CT abdomen and pelvis in the ED was administered with IV contrast only. Thank you for the consultation and the privilege to partake in the care of Mr. Nieves. We will continue to follow along as his care progresses and should further questions or concerns arise, please do not hesitate to reach out. Vital Signs Vital Signs Date Time Temp Pulse Resp B/P (MAP) Pulse Ox O2 Delivery O2 Flow Rate FiO2 10/12/19 15:49 16 10/12/19 14:00 98.2 89 107/64 (78) 93 Room Air I&Os I&O- Last 24 Hours up to 6 AM 10/12/19 06:00 Intake Total 1675 ml Output Total 550 ml Balance 1125 ml Laboratory Data Labs 24H Laboratory Tests 2 10/11/19 21:45: Bedside Glucose (Misc Panel) 134H 10/12/19 05:09: Nucleated Red Blood Cells % (auto) 0.0, Anion Gap 8, Glomerular Filtration Rate > 60.0, Calcium Level 8.3L, Magnesium Level 1.8 10/12/19 17:03: Bedside Glucose (Misc Panel) 102 CBC/BMP Laboratory Tests 10/12/19 05:09 Home Medications Scheduled Atorvastatin Calcium (Atorvastatin Calcium) 40 Mg Tablet, 40 MG PO DAILY, (Reported) Dulaglutide (Trulicity) 1.5 Mg/0.5 Ml Pen.injctr, 1.5 MG SC QWEEK, (Reported) SUNDAYS Ertugliflozin Pidolate (Steglatro) 5 Mg Tablet, 5 MG PO DAILY, (Reported) Gemfibrozil (Gemfibrozil) 600 Mg Tablet, 600 MG PO BID, (Reported) Lisinopril (Lisinopril) 5 Mg Tablet, 5 MG PO DAILY, (Reported) Metformin HCl (Metformin HCl) 1,000 Mg Tablet, 1,000 MG PO BID, (Reported) Multivitamins (Thera M Plus Tablet) 1 Each Tablet, 1 TAB PO DAILY, (Reported) Allergies Coded Allergies: No Known Drug Allergies (Verified Allergy, Unknown, 09/24/19) Attending Note Attending Note 43y/o male with a cystic mass vs. pancreatic pseudocyst on the tail of his pancreas. Recommendation is for pain control, IVF, and bowel rest for now. He will need workup for this lesion by a pancreatic specialist down in [place] once he is comfortable enough to be released from the hospital. If his pain can't be controlled then he could be transferred, but I don't think that is necessary at this time. He will likely need an EUS with biopsy to determine exactly what this mass is prior to determining definitive care, and this is not something that we are capable of doing here. MONO SULLIVAN D.O. Oct 12, 2019 19:37 LIBERTAD CHARLTON DO Oct 15, 2019 08:14
[2019-10-12] MEDS: NICOTINE 21MG/24HR 1 EA TRANSDERMAL TD SCH (20:06)
[2019-10-12 22:00] VITALS: BP 108/68
[2019-10-13] MEDS: KETOROLAC 30 MG/ML VIAL (J1885) IV PRN ×3 (03:27→20:22)
[2019-10-13] MEDS: KCL 40MEQ in NS 1000ML 1,000 ML IV SCH ×3 (03:27→17:17)
[2019-10-13 06:00] VITALS: BP 133/92
[2019-10-13 06:05] VITALS: BP 122/88
[2019-10-13 06:41] LABS: HEMATOCRIT 37.8 % (42.0-52.0); HEMOGLOBIN 12.9 g/dl (13.5-17.5); MEAN CORPUSCULAR HEMOGLOBIN 31.1 pg (27.0-33.0); MEAN CORPUSCULAR HGB CONC 34.1 g/dl (32.0-36.5); MEAN CORPUSCULAR VOLUME 91.1 fl (80.0-96.0); PLATELET COUNT, AUTOMATED 198 10^3/uL (150-450); RED BLOOD COUNT 4.15 10^6/uL (4.30-6.10); WHITE BLOOD COUNT 6.8 10^3/uL (4.0-10.0)
[2019-10-13 07:15] LABS: ALBUMIN 3.1 GM/DL (3.2-5.2); ALT/SGPT 20 U/L (12-78); BILIRUBIN,TOTAL 0.8 MG/DL (0.2-1.0); BLOOD UREA NITROGEN 18 MG/DL (7-18); CALCIUM LEVEL 7.8 MG/DL (8.5-10.1); CARBON DIOXIDE LEVEL 22 MEQ/L (21-32); CHLORIDE LEVEL 113 MEQ/L (98-107); CREATININE FOR GFR 0.65 MG/DL (0.70-1.30); GLOMERULAR FILTRATION RATE > 60.0 (>60); GLUCOSE, FASTING 107 MG/DL (70-100); POTASSIUM SERUM 4.3 MEQ/L (3.5-5.1); SODIUM LEVEL 141 MEQ/L (136-145); TOTAL PROTEIN 6.1 GM/DL (6.4-8.2)
[2019-10-13] MEDS: HumaLOG INSULIN (NovoLOG) PER UNIT SC SCH ×4 (07:20→20:21)
--- NOTE | 2019-10-13 07:22 | REPVR ---
PROCEDURE INFORMATION: Exam: XR Chest, 1 View Exam date and time: 10/13/2019 6:32 AM Age: 43 years old Clinical indication: Other: Chest pain TECHNIQUE: Imaging protocol: XR of the chest Views: 1 view. COMPARISON: CR Chest, 2 view PA, Lat 10/11/2019 5:00 PM FINDINGS: Lungs: Lungs are well aerated. Minimal bibasilar atelectasis. No consolidation. Pleural space: No significant pleural effusions. No pneumothorax. Heart/Mediastinum: Cardiac size is normal and mediastinal contour stable. Bones/joints: Bones are stable. IMPRESSION: Minimal bibasilar atelectasis. No evidence of pulmonary edema or pneumonia. Electronically signed by: Tyler Edge On 10/13/2019 07:22:17 AM
[2019-10-13] MEDS: ONDANSETRON 4MG/2ML VIAL (J2405) IV PRN (08:16)
[2019-10-13] MEDS: MORPHINE 4 MG/ML 1ML VIAL/SYRINGE (J2270) IV PRN (08:16)
[2019-10-13] MEDS: ATORVASTATIN 20 MG TAB PO SCH (08:16)
[2019-10-13] MEDS: GABAPENTIN 300 MG CAP PO SCH ×3 (08:17→20:21)
[2019-10-13] MEDS ORDERED: INFLUENZA QUADRIVALENT PF VACCINE 0.5ML SYRINGE (90686) IM ONE (09:00)
[2019-10-13 14:00] VITALS: BP 130/90
--- NOTE | 2019-10-13 16:36 | IPNPDOC ---
Subjective Date Seen The patient was seen on 10/13/19. Subjective Chief Complaint/HPI Mr. Nieves reports that his pain is a little better today than it was yesterday, however he still is not eating or drinking much. He has taken a few sips of his clears but doesn't feel like he could or should do much more than that right now. He reports that he has had a history of pancreatitis in the past (which we knew). He seems to think that during that time he might have had triglycerides elevated to around 1200. The most recent triglycerides I can find on file are 131 from 2018. General: Denies: Normal Appetite Constitutional: Denies: Chills, Fever Pulmonary: Denies: Dyspnea, Cough Cardiovascular: Denies: Chest Pain, Palpitations Gastrointestinal: Reports: Abdominal Pain; Denies: Vomiting Psych: Reports: Mood Normal Objective Physical Examination General Exam: Positive: Alert, Cooperative, No Acute Distress (laying in bed watching television and interacting with his family when I entered the room) Eye Exam: Positive: Conjunctiva & lids normal; Negative: Sclera icteric ENT Exam: Positive: Mucous membr. moist/pink Neck Exam: Negative: Lymphadenopathy Chest Exam: Positive: Clear to auscultation; Negative: Rales, Rhonchi, Wheezing Heart Exam: Positive: Rate Normal, Regular Rhythm, Normal S1, Normal S2; Negative: Murmurs Abdomen Exam: Positive: BS Hypoactive, Soft, Tenderness (very tender epigastrum and both left upper and lower quadrants) Extremity Exam: Negative: Edema Neuro Exam: Positive: Normal Speech Psych Exam: Positive: Mood NL, Oriented x 3 Assessment /Plan Problems (1) Pancreatitis, recurrent Status: Acute Problem Text: Cont IVF hydration -I decreased the rate from 175 an hour to 125 an hour he has nursing was concerned his hands were getting a little puffy. Morphine for pain and give Zofran for nausea, but he reports the morphine is running out too soon. I added hydrocodone to his regimen to see if he can get some longer lasting pain relief for this. Continue clear liquids as tolerated (2) Mass of pancreas Problem Text: Surgery did not recommend he be operated on during this admission unless it's absolutely necessary. The recommendation is that we let this calm down and he is seen at a tertiary care center for potential resection of the mass or collection of pseudocysts on the tail of his pancreas. (3) Type 2 diabetes mellitus Status: Chronic Response to Treatment: Stable Discussed With: Patient Problem Specific Plan: Repeat Tests Problem Text: His blood glucose levels have been under reasonable control. I did stop his Trulicity; he should not be on this medication with a history of pancreatitis. Continue current regimen, monitor. (4) Hypertension Status: Chronic Response to Treatment: Stable Problem Specific Plan: Monitor Clinically Problem Text: His blood pressure has been reasonably controlled. Continue current regimen, monitor. Plan/VTE VTE Prophylaxis Ordered?: Yes (Lovenox) VS, I&O, 24H, Fishbone Vital Signs/I&O Vital Signs Date Time Temp Pulse Resp B/P (MAP) Pulse Ox O2 Delivery O2 Flow Rate FiO2 10/13/19 14:00 98.2 90 18 130/90 (103) 96 Room Air I&O- Last 24 Hours up to 6 AM0 10/13/19 06:00 Intake Total 5210 ml Output Total 1495 ml Balance 3715 ml Laboratory Data 24H LABS Laboratory Tests 2 10/12/19 17:03: Bedside Glucose (Misc Panel) 102 10/12/19 20:01: Bedside Glucose (Misc Panel) 139H 10/13/19 05:42: Nucleated Red Blood Cells % (auto) 0.0, Anion Gap 6L, Glomerular Filtration Rate > 60.0, Calcium Level 7.8L, Total Bilirubin 0.8#, Aspartate Amino Transf (AST/SGOT) 13, Alanine Aminotransferase (ALT/SGPT) 20, Alkaline Phosphatase 53, Total Protein 6.1#L, Albumin 3.1#L, Albumin/Globulin Ratio 1.03 10/13/19 12:03: Bedside Glucose (Misc Panel) 112H CBC/BMP Laboratory Tests 10/13/19 05:42 Raheel Melvin MD Oct 13, 2019 16:36
[2019-10-13] MEDS: NICOTINE 21MG/24HR 1 EA TRANSDERMAL TD SCH (20:21)
[2019-10-13 22:00] VITALS: BP 129/88
[2019-10-14] MEDS: KETOROLAC 30 MG/ML VIAL (J1885) IV PRN ×3 (04:02→20:22)
[2019-10-14 06:00] VITALS: BP 126/86
[2019-10-14 06:40] LABS: HEMOGLOBIN 13.2 g/dl (13.5-17.5); MEAN CORPUSCULAR HEMOGLOBIN 30.4 pg (27.0-33.0); MEAN CORPUSCULAR VOLUME 92.2 fl (80.0-96.0); PLATELET COUNT, AUTOMATED 188 10^3/uL (150-450); RED BLOOD COUNT 4.34 10^6/uL (4.30-6.10); WHITE BLOOD COUNT 8.3 10^3/uL (4.0-10.0)
[2019-10-14 07:00] LABS: ALBUMIN 3.1 GM/DL (3.2-5.2); ALT/SGPT 25 U/L (12-78); BILIRUBIN,TOTAL 0.5 MG/DL (0.2-1.0); BLOOD UREA NITROGEN 11 MG/DL (7-18); CALCIUM LEVEL 8.2 MG/DL (8.5-10.1); CARBON DIOXIDE LEVEL 27 MEQ/L (21-32); CHLORIDE LEVEL 109 MEQ/L (98-107); CHOLESTEROL LEVEL 131 MG/DL (<200); CREATININE FOR GFR 0.64 MG/DL (0.70-1.30); GLOMERULAR FILTRATION RATE > 60.0 (>60); GLUCOSE, FASTING 120 MG/DL (70-100); HDL CHOLESTEROL 25 MG/DL (>40); LDL CHOLESTEROL 56 MG/DL (<100); LIPASE 286 U/L (73-393); NON-HDL-C 106 MG/DL; POTASSIUM SERUM 4.6 MEQ/L (3.5-5.1); SODIUM LEVEL 141 MEQ/L (136-145); TOTAL PROTEIN 6.3 GM/DL (6.4-8.2); TRIGLYCERIDES LEVEL 249 MG/DL (<150)
[2019-10-14] MEDS: ATORVASTATIN 20 MG TAB PO SCH (08:56)
[2019-10-14] MEDS: NORCO, ANEXSIA 5/325MG TABLET (HYDROcodone/ACETAMINOPHEN) PO PRN (08:56)
[2019-10-14] MEDS: GABAPENTIN 300 MG CAP PO SCH ×3 (08:56→20:11)
[2019-10-14] MEDS: HumaLOG INSULIN (NovoLOG) PER UNIT SC SCH ×4 (08:57→20:08)
[2019-10-14 14:00] VITALS: BP 108/78
--- NOTE | 2019-10-14 20:05 | IPNPDOC ---
Subjective Date Seen The patient was seen on 10/14/19. Subjective Chief Complaint/HPI He reports that his abdominal pain is a little better today. It is more localized to his LUQ than it was yesterday. He tried full liquids for lunch, but feels a pit in his epigastrium now. It isn't necessarily painful, but it is uncomfortable. General: Denies: Normal Appetite Pulmonary: Denies: Dyspnea, Cough Cardiovascular: Denies: Chest Pain, Palpitations Gastrointestinal: Reports: Abdominal Pain Psych: Reports: Mood Normal Objective Physical Examination General Exam: Positive: Alert, Cooperative, No Acute Distress (laying in bed talking with his when I entered the room) Eye Exam: Positive: Conjunctiva & lids normal; Negative: Sclera icteric ENT Exam: Positive: Mucous membr. moist/pink Neck Exam: Positive: Supple; Negative: Lymphadenopathy Chest Exam: Positive: Clear to auscultation; Negative: Rales, Rhonchi, Wheezing Heart Exam: Positive: Rate Normal, Regular Rhythm, Normal S1, Normal S2; Negative: Murmurs Abdomen Exam: Positive: BS Hypoactive, Soft, Tenderness (very tender epigastrum and both left upper quadrant), Other (no Cullens or Pedersen Orellana sign) Extremity Exam: Negative: Edema Neuro Exam: Positive: Normal Speech Psych Exam: Positive: Mood NL, Oriented x 3 Assessment /Plan Problems (1) Pancreatitis, recurrent Status: Acute Problem Text: The hydrocodone seems to be lasting a little longer for his pain control. His triglycerides are a little elevated, but not enough to cause pancreatitis. He is doing fine with clears and seems to be tolerating full liqui ds reasonably too. (2) Mass of pancreas Problem Text: Surgery did not recommend he be operated on during this admission unless it's absolutely necessary. The recommendation is that we let this calm down and he is seen at a tertiary care center for potential resection of the mass or collection of pseudocysts on the tail of his pancreas. (3) Type 2 diabetes mellitus Status: Chronic Response to Treatment: Stable Discussed With: Patient Problem Specific Plan: Repeat Tests Problem Text: His blood glucose levels have been under reasonable control. I did stop his Trulicity; he should not be on this medication with a history of pancreatitis. Continue current regimen, monitor. (4) Hypertension Status: Chronic Response to Treatment: Stable Problem Specific Plan: Monitor Clinically Problem Text: His blood pressure has been reasonably controlled. Continue current regimen, monitor. Plan/VTE VTE Prophylaxis Ordered?: Yes (Lovenox) VS, I&O, 24H, Fishbone Vital Signs/I&O Vital Signs Date Time Temp Pulse Resp B/P (MAP) Pulse Ox O2 Delivery O2 Flow Rate FiO2 10/14/19 14:00 98.4 83 20 108/78 (88) 95 Room Air I&O- Last 24 Hours up to 6 AM 10/14/19 06:00 Intake Total 2875 ml Output Total 2200 ml Balance 675 ml Laboratory Data 24H LABS Laboratory Tests 2 10/13/19 20:20: Bedside Glucose (Misc Panel) 170H 10/14/19 05:25: Nucleated Red Blood Cells % (auto) 0.0, Anion Gap 5L, Glomerular Filtration Rate > 60.0, Calcium Level 8.2L, Total Bilirubin 0.5, Aspartate Amino Transf (AST/SGOT) 16, Alanine Aminotransferase (ALT/SGPT) 25, Alkaline Phosphatase 61, Total Protein 6.3L, Albumin 3.1L, Albumin/Globulin Ratio 0.97L, Triglycerides Level 249H, Total Cholesterol 131, LDL Cholesterol 56, Non-HDL Cholesterol (LDL + VLDL) 106, Total HDL Cholesterol 25L, Cholesterol/HDL Ratio 5.240H, Lipase 286 10/14/19 11:26: Bedside Glucose (Misc Panel) 120H 10/14/19 16:25: Bedside Glucose (Misc Panel) 242H 10/14/19 17:41: Bedside Glucose (Misc Panel) 212H CBC/BMP Laboratory Tests 10/14/19 05:25 Raheel Melvin MD Oct 14, 2019 20:04
[2019-10-14] MEDS: NICOTINE 21MG/24HR 1 EA TRANSDERMAL TD SCH (20:11)
[2019-10-14 22:00] VITALS: BP 116/79
[2019-10-15 06:00] VITALS: BP 119/82
[2019-10-15 06:14] LABS: BASO # 0.1 10^3/uL (0.0-0.2); BASO % 0.6 % (0.0-1.0); EOS # 0.2 10^3/uL (0.0-0.5); EOS % 1.8 % (0.0-3.0); HEMATOCRIT 39.9 % (42.0-52.0); HEMOGLOBIN 13.6 g/dl (13.5-17.5); LYMPH # 2.2 10^3/uL (1.5-5.0); LYMPH % 26.5 % (24.0-44.0); MEAN CORPUSCULAR HEMOGLOBIN 30.6 pg (27.0-33.0); MEAN CORPUSCULAR HGB CONC 34.1 g/dl (32.0-36.5); MEAN CORPUSCULAR VOLUME 89.9 fl (80.0-96.0); MONO # 0.8 10^3/uL (0.0-0.8); MONO % 9.7 % (0.0-5.0); PLATELET COUNT, AUTOMATED 209 10^3/uL (150-450); RED BLOOD COUNT 4.44 10^6/uL (4.30-6.10); WHITE BLOOD COUNT 8.3 10^3/uL (4.0-10.0)
[2019-10-15 06:52] LABS: ALBUMIN 3.2 GM/DL (3.2-5.2); ALT/SGPT 21 U/L (12-78); BILIRUBIN,TOTAL 0.8 MG/DL (0.2-1.0); BLOOD UREA NITROGEN 13 MG/DL (7-18); CARBON DIOXIDE LEVEL 28 MEQ/L (21-32); CHLORIDE LEVEL 109 MEQ/L (98-107); CREATININE FOR GFR 0.66 MG/DL (0.70-1.30); GLOMERULAR FILTRATION RATE > 60.0 (>60); GLUCOSE, FASTING 126 MG/DL (70-100); POTASSIUM SERUM 4.6 MEQ/L (3.5-5.1); SODIUM LEVEL 140 MEQ/L (136-145); TOTAL PROTEIN 6.4 GM/DL (6.4-8.2)
[2019-10-15] MEDS: ATORVASTATIN 20 MG TAB PO SCH (07:37)
[2019-10-15] MEDS: HumaLOG INSULIN (NovoLOG) PER UNIT SC SCH ×4 (07:37→20:49)
[2019-10-15] MEDS: GABAPENTIN 300 MG CAP PO SCH ×3 (07:37→20:54)
[2019-10-15] MEDS: ONDANSETRON 4MG/2ML VIAL (J2405) IV PRN (08:30)
--- NOTE | 2019-10-15 10:30 | IPNPDOC ---
Subjective Date Seen The patient was seen on 10/15/19. Subjective Chief Complaint/HPI Satish this morning was advanced to a Cons carb diet, and suffered from nausea with increase vomiting and pain. He states that he hasn't been sleeping well sinec being in the hospital. General: Reports: Fatigue Constitutional: Denies: Chills, Fever Pulmonary: Denies: Dyspnea, Cough Cardiovascular: Denies: Chest Pain, Palpitations Gastrointestinal: Reports: Nausea, Vomiting, Abdominal Pain Neurological: Denies: Weakness Psych: Reports: Mood Normal Objective Physical Examination General Exam: Positive: Alert, Cooperative, No Acute Distress (Asleep when I entered the room) ENT Exam: Positive: Mucous membr. moist/pink Neck Exam: Positive: Supple; Negative: Lymphadenopathy Chest Exam: Positive: Clear to auscultation; Negative: Rales, Rhonchi, Wheezing Heart Exam: Positive: Rate Normal, Regular Rhythm, Normal S1, Normal S2; Negative: Murmurs Abdomen Exam: Positive: BS Hypoactive, Soft, Tenderness (very tender epigastrum and both upper quadrants), Other Extremity Exam: Negative: Edema Neuro Exam: Positive: Normal Speech Psych Exam: Positive: Mood NL, Oriented x 3 Assessment /Plan Problems (1) Pancreatitis, recurrent Status: Acute Response to Treatment: Stable Discussed With: Nurse, Patient, Family with Pt Consent Problem Specific Plan: Monitor Clinically, Repeat Labs Problem Text: 10/15 Failed to tolerated Cons Carb diet, backed down to clears this morning, pain increased after having breakfast this morning. Remains afebrile and without leukocytosis 10/14 The hydrocodone seems to be lasting a little longer for his pain control. His triglycerides are a little elevated, but not enough to cause pancreatitis. He is doing fine with clears and seems to be tolerating full liquids reasonably too. (2) Mass of pancreas Problem Text: Surgery did not recommend he be operated on during this admission unless it's absolutely necessary. The recommendation is that we let this calm down and he is seen at a tertiary care center for potential resection of the mass or collection of pseudocysts on the tail of his pancreas. (3) Type 2 diabetes mellitus Status: Chronic Response to Treatment: Stable Discussed With: Patient Problem Specific Plan: Repeat Tests Problem Text: His blood glucose levels have been under reasonable control. I did stop his Trulicity; he should not be on this medication with a history of pancreatitis. Continue current regimen, monitor. (4) Hypertension Status: Chronic Response to Treatment: Stable Problem Specific Plan: Monitor Clinically Problem Text: His blood pressure has been reasonably controlled. Continue current regimen, monitor. Plan/VTE VTE Prophylaxis Ordered?: Yes (Lovenox) VS, I&O, 24H, Fishbone Vital Signs/I&O Vital Signs Date Time Temp Pulse Resp B/P (MAP) Pulse Ox O2 Delivery O2 Flow Rate FiO2 10/15/19 06:00 97.8 81 18 119/82 (94) 95 Room Air I&O- Last 24 Hours up to 6 AM 10/15/19 06:00 Intake Total 2180 ml Output Total 1900 ml Balance 280 ml Laboratory Data 24H LABS Laboratory Tests 2 10/14/19 11:26: Bedside Glucose (Misc Panel) 120H 10/14/19 16:25: Bedside Glucose (Misc Panel) 242H 10/14/19 17:41: Bedside Glucose (Misc Panel) 212H 10/14/19 19:33: Bedside Glucose (Misc Panel) 183H 10/15/19 05:39: Immature Granulocyte % (Auto) 0.4, Neutrophils (%) (Auto) 61.0, Lymphocytes (%) (Auto) 26.5, Monocytes (%) (Auto) 9.7H, Eosinophils (%) (Auto) 1.8, Basophils (%) (Auto) 0.6, Neutrophils # (Auto) 5.0, Lymphocytes # (Auto) 2.2, Monocytes # (Auto) 0.8, Eosinophils # (Auto) 0.2, Basophils # (Auto) 0.1, Nucleated Red Blood Cells % (auto) 0.0, Anion Gap 3L, Glomerular Filtration Rate > 60.0, Calcium Level 8.0L, Total Bilirubin 0.8#, Aspartate Amino Transf (AST/SGOT) 16, Alanine Aminotransferase (ALT/SGPT) 21, Alkaline Phosphatase 55, Total Protein 6.4, Albumin 3.2, Albumin/Globulin Ratio 1.00 CBC/BMP Laboratory Tests 10/15/19 05:39 Attending Note Attending Note Dr. Wei called to say that biliary/pancreas specialist at [facility] had been contacted and that patient had been accepted for transfer. He was not able to tell me the name of the accepting physician, however. Contacted Transfer Center at [facility] and they knew nothing about said transfer but put patient on the list. RUBEN BATRES PA-C Oct 15, 2019 10:30 Boo Molina MD Oct 15, 2019 14:41
[2019-10-15] MEDS: NORCO, ANEXSIA 5/325MG TABLET (HYDROcodone/ACETAMINOPHEN) PO PRN (11:26)
[2019-10-15 14:00] VITALS: BP 136/80
[2019-10-15] MEDS: KETOROLAC 30 MG/ML VIAL (J1885) IV PRN (15:24)
[2019-10-15] MEDS: CREON-24 CAPSULE PO SCH (17:54)
[2019-10-15] MEDS: NICOTINE 21MG/24HR 1 EA TRANSDERMAL TD SCH (20:54)
[2019-10-15 22:00] VITALS: BP 132/82
[2019-10-16] VITALS: BP 132/82
[2019-10-16] MEDS: NORCO, ANEXSIA 5/325MG TABLET (HYDROcodone/ACETAMINOPHEN) PO PRN ×2 (01:42→09:07)
[2019-10-16 06:00] VITALS: BP 129/82
[2019-10-16] MEDS: HumaLOG INSULIN (NovoLOG) PER UNIT SC SCH ×2 (07:30→12:00)
[2019-10-16] MEDS: CREON-24 CAPSULE PO SCH ×2 (08:00→12:12)
[2019-10-16] MEDS: ATORVASTATIN 20 MG TAB PO SCH (09:02)
[2019-10-16] MEDS: GABAPENTIN 300 MG CAP PO SCH (09:03)
[2019-10-16] MEDS ORDERED: HYDR-4571 PO (11:06)
[2019-10-16] MEDS ORDERED: CREO24CA PO (12:39)
[2019-10-16] MEDS ORDERED: NICO21DI6 TD (13:13)
--- NOTE | 2019-10-16 14:36 | DSES ---
DATE OF ADMISSION: 10/11/2019 DATE OF DISCHARGE: 10/16/2019 HISTORY: This is a 43-year-old male patient who follows with Dr. Sanchez in the inpatient setting who presented to [facility] with intractable abdominal pain. He was found to have a 14 cm pancreatic tail cystic mass. He was admitted to the hospital and kept nothing by mouth and on intravenous fluids. He was advanced to clear liquid diet. He has failed advancing to a regular diet and therefore he is now on full liquids and seems to be tolerating this. His pain is reasonably controlled. Pancreatobiliary team in [place] has been consulted and recommended outpatient followup. Therefore, Dr. Wei, who has been following the patient, is working on coordinating this with the patient at this point. He feels comfortable returning home and therefore the plan will be to discharge him back home. DISCHARGE DIAGNOSES: 1. Recurrent pancreatitis mass, appears cystic in nature. 2. Type 2 diabetes. 3. Hypertension. DISCHARGE MEDICATIONS: - Vicodin 5/325 one tablet every 6 hours as needed for pain DIET: Full liquids. ACTIVITY: As tolerated. He was given an off work note until 10/29/2019. He should see Dr. Sanchez in 2 to 3 days in the office. We await referral appointment to pancreatobiliary specialist in [place] or [place], which is being coordinated by Dr. Wei.
== END 2019-10-16 12:58 | disposition home or self-care (01) | DRG 254 ==
LOC: M ED 15:46 → M ED INP 19:06 → ENRESERVTM 19:44 → ENRESERVDT 19:44 → M MSPAV 20:40
PROVIDERS: ADMIT Internal Medicine; ATTEND Family Medicine
DX: D37.8 Neoplasm of uncertain behavior of other specified digestive organs (principal); K86.2 Cyst of pancreas; K85.90 Acute pancreatitis without necrosis or infection, unspecified; I10 Essential (primary) hypertension; E11.9 Type 2 diabetes mellitus without complications; E78.5 Hyperlipidemia, unspecified; F17.200 Nicotine dependence, unspecified, uncomplicated; E66.9 Obesity, unspecified; Z68.30 Body mass index [BMI] 30.0-30.9, adult; Z79.84 Long term (current) use of oral hypoglycemic drugs; Z79.899 Other long term (current) drug therapy

== ENCOUNTER 2019-10-31 10:17 | Day surgery (SDC) | payer OTHER ==
[~2019-10-31] VITALS: Ht 170.2 cm; Wt 84.7 kg
[~2019-10-31 10:17] MED LIST changes: +BASA100I SQ; +CREO24CA PO; +GABA-1171 PO; +HYDR-4571 PO; +NICO21DI6 TD; +NS 1,000 ML IV ONE; +ONE A DAY VIT; +OSEL75CA2 PO; +VITMTA PO
[2019-10-31] MEDS ORDERED: fentaNYL 100 MCG/2 ML INJECTION (J3010) As Ordered ONE (11:47)
--- NOTE | 2019-10-31 12:03 | ROOR ---
Patient Name: Satish Nieves Procedure Date: 10/31/2019 11:48 AM Date of : 1975 Age: 43 Room: [facility] Gender: Male Note Status: Finalized Procedure: Upper GI endoscopy Indications: Abdominal pain in the left upper quadrant, Abnormal CT of the GI tract Providers: Tyrese Barroso MD Referring MD: Rosa SIMS DO Requesting Provider: Medicines: Monitored Anesthesia Care Complications: No immediate complications. Procedure: Pre-Anesthesia Assessment: - The heart rate, respiratory rate, oxygen saturations, blood pressure, adequacy of pulmonary ventilation, and response to care were monitored throughout the procedure. The Endoscope was introduced through the mouth, and advanced to the second part of duodenum. The upper GI endoscopy was accomplished without difficulty. The patient tolerated the procedure well. Findings: The Z-line was regular and was found 40 cm from the incisors. No other significant abnormalities were identified in a careful examination of the stomach. The exam of the duodenum was otherwise normal. Impression: - Z-line regular, 40 cm from the incisors. - No specimens collected. - The examination was otherwise normal. Recommendation: - Patient has a contact number available for emergencies. The signs and symptoms of potential delayed complications were discussed with the patient. Return to normal activities tomorrow. Written discharge instructions were provided to the patient. - Discharge patient to home. - Continue present medications. - Return to referring physician. - The findings and recommendations were discussed with the patient's family. Tyrese Barroso MD Tyrese Barroso MD 10/31/2019 12:03:13 PM Electronically signed by Tyrese Barroso MD Number of Addenda: 0 Note Initiated On: 10/31/2019 11:48 AM Estimated Blood Loss: Estimated blood loss: none.
[2019-10-31] MEDS ORDERED: LIDOCAINE 2% INJ 100 MG/5 ML SDV (FOR ANES.) As Ordered ONE (12:22)
[2019-10-31] MEDS ORDERED: propofoL 200 MG/20 ML VIAL As Ordered ONE (12:22)
--- NOTE | 2019-10-31 12:22 | ROOR ---
Patient Name: Satish Nieves Procedure Date: 10/31/2019 11:49 AM Date of : 1975 Age: 43 Room: [facility] Gender: Male Note Status: Finalized Procedure: Total Colonoscopy to Cecum Indications: Abdominal pain in the left upper quadrant, Abnormal CT of the GI tract Providers: Tyrese Barroso MD Referring MD: Rosa SIMS DO Requesting Provider: Medicines: Monitored Anesthesia Care Complications: No immediate complications. Procedure: Pre-Anesthesia Assessment: - The heart rate, respiratory rate, oxygen saturations, blood pressure, adequacy of pulmonary ventilation, and response to care were monitored throughout the procedure. The Colonoscope was introduced through the anus and advanced to the cecum, identified by appendiceal orifice and ileocecal valve. The colonoscopy was performed without difficulty. The patient tolerated the procedure well. The quality of the bowel preparation was excellent. Findings: The perianal and digital rectal examinations were normal. Non-bleeding internal hemorrhoids were found during retroflexion. The hemorrhoids were small and Grade I (internal hemorrhoids that do not prolapse). No other significant abnormalities were identified in a careful examination of the remainder of the colon. The exam was otherwise without abnormality on direct and retroflexion views. The terminal ileum appeared normal. Impression: - Non-bleeding internal hemorrhoids. - The examination was otherwise normal on direct and retroflexion views. - The examined portion of the ileum was normal. - No specimens collected. - The exam was otherwise normal to the cecum. Recommendation: - Patient has a contact number available for emergencies. The signs and symptoms of potential delayed complications were discussed with the patient. Return to normal activities tomorrow. Written discharge instructions were provided to the patient. - High fiber diet. - Discharge patient to home. - Repeat colonoscopy in 10 years for screening purposes. - Return to referring physician. - The findings and recommendations were discussed with the patient's family. Tyrese Barroso MD Tyrese Barroso MD 10/31/2019 12:21:57 PM Electronically signed by Tyrese Barroso MD Number of Addenda: 0 Note Initiated On: 10/31/2019 11:49 AM Estimated Blood Loss: Estimated blood loss: none.
[2019-10-31 12:35] VITALS: BP 124/85
== END 2019-10-31 12:47 | disposition home or self-care (01) ==
LOC: M OPP 10:17
PROVIDERS: ATTEND Internal Medicine Gastroenterology
DX: K64.0 First degree hemorrhoids (principal); R10.12 Left upper quadrant pain; R93.3 Abnormal findings on diagnostic imaging of other parts of digestive tract; E11.9 Type 2 diabetes mellitus without complications; F17.210 Nicotine dependence, cigarettes, uncomplicated; Z79.84 Long term (current) use of oral hypoglycemic drugs; Z79.891 Long term (current) use of opiate analgesic; Z79.899 Other long term (current) drug therapy
CPT/HCPCS: 43235; 45378; J3010

== ENCOUNTER → 2019-11-07 | Outpatient (CLI) | payer OTHER ==
[~2019-11-07] MED LIST changes: -NS 1,000 ML IV ONE
--- NOTE | 2019-11-07 14:47 | REP ---
PA and lateral chest: Comparison is 10/11/2019. The lung henley are clear. The cardiac size is normal. The ingrid, mediastinum, and skeletal structures are unremarkable. Impression: Negative PA and lateral chest. There is no interval change. Electronically Signed by Channing Schultz MD 11/07/2019 02:39 P
== END ==
LOC: M RAD 11:26
DX: K86.89 Other specified diseases of pancreas (principal)

== ENCOUNTER → 2019-12-12 | Outpatient (REF) | payer OTHER ==
[2019-12-12 12:30] LABS: BASO # 0.2 10^3/uL (0.0-0.2); BASO % 0.7 % (0.0-1.0); EOS # 0.3 10^3/uL (0.0-0.5); EOS % 1.3 % (0.0-3.0); HEMATOCRIT 34.9 % (42.0-52.0); HEMOGLOBIN 11.3 g/dl (13.5-17.5); LYMPH # 2.7 10^3/uL (1.5-5.0); LYMPH % 13.2 % (24.0-44.0); MEAN CORPUSCULAR HEMOGLOBIN 29.9 pg (27.0-33.0); MEAN CORPUSCULAR HGB CONC 32.4 g/dl (32.0-36.5); MEAN CORPUSCULAR VOLUME 92.3 fl (80.0-96.0); MONO % 10.3 % (0.0-5.0); NEUTROPHILS # 14.8 10^3/uL (1.5-8.5); RED BLOOD COUNT 3.78 10^6/uL (4.30-6.10); WHITE BLOOD COUNT 20.2 10^3/uL (4.0-10.0)
[2019-12-12 12:58] LABS: ALBUMIN 3.2 GM/DL (3.2-5.2); ALT/SGPT 32 U/L (12-78); BILIRUBIN,TOTAL 0.5 MG/DL (0.2-1.0); BLOOD UREA NITROGEN 19 MG/DL (7-18); CALCIUM LEVEL 9.8 MG/DL (8.5-10.1); CARBON DIOXIDE LEVEL 30 MEQ/L (21-32); CHLORIDE LEVEL 98 MEQ/L (98-107); CREATININE FOR GFR 0.92 MG/DL (0.70-1.30); GLOMERULAR FILTRATION RATE > 60.0 (>60); GLUCOSE, FASTING 194 MG/DL (70-100); POTASSIUM SERUM 5.8 MEQ/L (3.5-5.1); SODIUM LEVEL 134 MEQ/L (136-145); TOTAL PROTEIN 7.6 GM/DL (6.4-8.2)
[2019-12-12 13:00] LABS: MONO # 2.1 10^3/uL (0.0-0.8); PLATELET COUNT, AUTOMATED 1097 10^3/uL (150-450)
== END ==
LOC: M SFHCADAM 09:34
PROVIDERS: ATTEND Family Medicine
DX: Q89.01 Asplenia (congenital) (principal); K86.89 Other specified diseases of pancreas

== ENCOUNTER → 2019-12-13 | Outpatient (CLI) | payer MEDICAID, OTHER ==
[~2019-12-13] MED LIST changes: +GASTROGRAFIN SOLUTION 30ML (Q9963) As Ordered ONE; +ISOVUE-370 76% 100ML VIAL (Q9967) As Ordered ONE
--- NOTE | 2019-12-13 19:22 | REPVR ---
PROCEDURE INFORMATION: Exam: CT Abdomen And Pelvis With Contrast Exam date and time: 12/13/2019 5:52 PM Age: 44 years old Clinical indication: Pain and abnormal findings; Abnormal lab test; Elevated wbc; Abdominal pain; Localized; Left lower quadrant (llq); Additional info: Asplenia, leukocytosis, llq tenderness without rebound tend. TECHNIQUE: Imaging protocol: Computed tomography of the abdomen and pelvis with intravenous contrast. Radiation optimization: All CT scans at this facility use at least one of these dose optimization techniques: automated exposure control; mA and/or kV adjustment per patient size (includes targeted exams where dose is matched to clinical indication); or iterative reconstruction. Contrast material: ISOVUE 370; Contrast volume: 100 ml; Contrast route: IV; COMPARISON: CT ABD/PEL W/IV CONTRAST ONLY 10/11/2019 5:41 PM FINDINGS: Lungs: Subsegmental atelectasis at both lung bases greater on left than right likely due to the left upper quadrant surgery. Liver: There is a diffuse decrease in hepatic parenchymal density, consistent with fatty infiltration. There is a large complex fluid collection likely representing a hematoma in the upper abdomen posteriorly displacing and compressing the left lobe of the liver. Air is seen in this collection. It measures approximately 25.5 cm in width by 5 cm AP by 7.3 cm craniocaudal. Gallbladder and bile ducts: The gallbladder is normal. Pancreas: The multiloculated pancreatic tail mass is been partially resected. There is a remaining cyst with rim calcification measuring 2.9 x 3.7 cm. This cyst previously measured 4.3 x 4.1 cm. Spleen: In comparison to the prior study patient appears to have had abdominal surgery now with multiple surgical clips in the left abdomen and spleen has been resected. Adrenals: The right adrenal gland is unremarkable. The left adrenal gland is not visualized and may have been resected. Kidneys and ureters: Right kidney is unremarkable. The left kidney has been resected. Stomach and bowel: There is no evidence of intestinal obstruction. Appendix: No evidence of appendicitis. Intraperitoneal space: Unremarkable. No free air. No significant fluid collection. Vasculature: There is no evidence of an abdominal aortic aneurysm. Lymph nodes: Unremarkable. No enlarged lymph nodes. Bladder: The bladder is unremarkable. Reproductive: Unremarkable as visualized. Bones/joints: Unremarkable. No acute fracture. Soft tissues: Unremarkable. Other findings: There is a midline anterior abdominal scar. IMPRESSION: In comparison the prior study patient appears to have had resection of the pancreatic tail left kidney and spleen. There is a large complex fluid collection in the upper abdomen likely containing blood. It also contains air therefore this could represent an infected hematoma/abscess. A residual a cystic lesion is seen in the pancreatic tail/body junction measuring 2.9 x 3.7 cm. It is smaller than at time of prior imaging. Electronically signed by: Olga Chow On 12/13/2019 19:21:49 PM
== END ==
LOC: M RAD 15:34
PROVIDERS: ATTEND Family Medicine
DX: D72.829 Elevated white blood cell count, unspecified (principal)
CPT/HCPCS: 74177; Q9963; Q9967

== ENCOUNTER → 2019-12-24 | Outpatient (REF) | payer OTHER ==
[~2019-12-24] MED LIST changes: -GASTROGRAFIN SOLUTION 30ML (Q9963) As Ordered ONE; -ISOVUE-370 76% 100ML VIAL (Q9967) As Ordered ONE
[2019-12-24 15:46] LABS: CREATININE, URINE 51.9 MG/DL; MAU/CREAT RATIO 26.9 MCG/MG (0.0-30.0)
== END ==
LOC: M LAB REF 15:04
PROVIDERS: ATTEND Nurse Practitioner Family
DX: E11.65 Type 2 diabetes mellitus with hyperglycemia (principal)

== ENCOUNTER → 2019-12-26 | Outpatient (REF) | payer OTHER ==
[2019-12-26 12:52] LABS: BASO # 0.1 10^3/uL (0.0-0.2); BASO % 1.1 % (0.0-1.0); EOS # 0.6 10^3/uL (0.0-0.5); EOS % 5.7 % (0.0-3.0); HEMATOCRIT 34.2 % (42.0-52.0); HEMOGLOBIN 10.9 g/dl (13.5-17.5); LYMPH # 2.9 10^3/uL (1.5-5.0); LYMPH % 26.1 % (24.0-44.0); MEAN CORPUSCULAR HEMOGLOBIN 30.1 pg (27.0-33.0); MEAN CORPUSCULAR HGB CONC 31.9 g/dl (32.0-36.5); MEAN CORPUSCULAR VOLUME 94.5 fl (80.0-96.0); MONO # 1.2 10^3/uL (0.0-0.8); MONO % 11.2 % (0.0-5.0); NEUTROPHILS # 6.1 10^3/uL (1.5-8.5); NEUTROPHILS % 55.2 % (36.0-66.0); PLATELET COUNT, AUTOMATED 816 10^3/uL (150-450); RED BLOOD COUNT 3.62 10^6/uL (4.30-6.10); WHITE BLOOD COUNT 11.1 10^3/uL (4.0-10.0)
== END ==
LOC: M LABDRWAD 12:27
PROVIDERS: ATTEND Surgery
DX: D37.8 Neoplasm of uncertain behavior of other specified digestive organs (principal); K86.3 Pseudocyst of pancreas

== ENCOUNTER → 2020-01-02 | Outpatient (CLI) | payer OTHER ==
[2020-01-02 16:16] LABS: BASO # 0.1 10^3/uL (0.0-0.2); BASO % 1.2 % (0.0-1.0); EOS # 0.8 10^3/uL (0.0-0.5); EOS % 8.3 % (0.0-3.0); HEMATOCRIT 36.2 % (42.0-52.0); HEMOGLOBIN 11.2 g/dl (13.5-17.5); LYMPH % 30.6 % (24.0-44.0); MEAN CORPUSCULAR HEMOGLOBIN 29.5 pg (27.0-33.0); MEAN CORPUSCULAR HGB CONC 30.9 g/dl (32.0-36.5); MEAN CORPUSCULAR VOLUME 95.3 fl (80.0-96.0); MONO % 10.1 % (0.0-5.0); NEUTROPHILS # 4.9 10^3/uL (1.5-8.5); NEUTROPHILS % 49.5 % (36.0-66.0); PLATELET COUNT, AUTOMATED 618 10^3/uL (150-450); WHITE BLOOD COUNT 9.9 10^3/uL (4.0-10.0)
[2020-01-02 16:25] LABS: ALBUMIN 3.8 GM/DL (3.2-5.2); ALT/SGPT 20 U/L (12-78); AMYLASE 79 U/L (25-115); BILIRUBIN,TOTAL 0.3 MG/DL (0.2-1.0); BLOOD UREA NITROGEN 15 MG/DL (7-18); CALCIUM LEVEL 9.5 MG/DL (8.5-10.1); CARBON DIOXIDE LEVEL 30 MEQ/L (21-32); CHLORIDE LEVEL 105 MEQ/L (98-107); CREATININE FOR GFR 0.85 MG/DL (0.70-1.30); GLOMERULAR FILTRATION RATE > 60.0 (>60); GLUCOSE, FASTING 156 MG/DL (70-100); LIPASE 285 U/L (73-393); POTASSIUM SERUM 5.4 MEQ/L (3.5-5.1); SODIUM LEVEL 138 MEQ/L (136-145); TOTAL PROTEIN 7.5 GM/DL (6.4-8.2)
== END ==
LOC: M WUC 11:47
PROVIDERS: ATTEND Nurse Practitioner Family
DX: Z98.890 Other specified postprocedural states (principal)

== ENCOUNTER → 2020-01-17 | Outpatient (REF) | payer OTHER ==
[2020-01-17 17:44] LABS: BASO # 0.1 10^3/uL (0.0-0.2); BASO % 0.7 % (0.0-1.0); EOS # 0.3 10^3/uL (0.0-0.5); EOS % 1.8 % (0.0-3.0); HEMATOCRIT 38.9 % (42.0-52.0); HEMOGLOBIN 12.7 g/dl (13.5-17.5); LYMPH # 2.9 10^3/uL (1.5-5.0); LYMPH % 18.8 % (24.0-44.0); MEAN CORPUSCULAR HEMOGLOBIN 29.5 pg (27.0-33.0); MEAN CORPUSCULAR HGB CONC 32.6 g/dl (32.0-36.5); MEAN CORPUSCULAR VOLUME 90.3 fl (80.0-96.0); MONO # 1.3 10^3/uL (0.0-0.8); MONO % 8.8 % (0.0-5.0); NEUTROPHILS # 10.5 10^3/uL (1.5-8.5); NEUTROPHILS % 69.4 % (36.0-66.0); PLATELET COUNT, AUTOMATED 663 10^3/uL (150-450); RED BLOOD COUNT 4.31 10^6/uL (4.30-6.10); WHITE BLOOD COUNT 15.2 10^3/uL (4.0-10.0)
[2020-01-17 17:45] LABS: APPEARANCE, URINE CLEAR (CLEAR); BACTERIA, URINE AUTO NEGATIVE (NEGATIVE); BILIRUBIN, URINE AUTO NEGATIVE (NEGATIVE); BLOOD, URINE BLOOD NEGATIVE (NEGATIVE); COLOR, URINE YELLOW (YELLOW); GLUCOSE, URINE (UA) AUTO 3+ mg/dL (NEGATIVE); KETONE, URINE AUTO NEGATIVE (NEGATIVE); LEUKOCYTE ESTERASE, URINE AUTO NEGATIVE (NEGATIVE); MUCUS, URINE SMALL (NEGATIVE); NITRITE, URINE AUTO NEGATIVE (NEGATIVE); PROTEIN, URINE AUTO NEGATIVE (NEGATIVE); RBC, URINE AUTO 0 /HPF (0-3); SPECIFIC GRAVITY URINE AUTO 1.031 (1.002-1.035); SQUAMOUS EPITHELIAL CELL UR AU 0 /HPF (0-6); UROBILINOGEN, URINE AUTO 0.2 mg/dL (0.0-2.0); WBC, URINE AUTO 0 /HPF (0-3)
[2020-01-17 18:30] LABS: ALT/SGPT 22 U/L (12-78); AMYLASE 171 U/L (25-115); BILIRUBIN,TOTAL 0.6 MG/DL (0.2-1.0); BLOOD UREA NITROGEN 18 MG/DL (7-18); CALCIUM LEVEL 9.8 MG/DL (8.5-10.1); CARBON DIOXIDE LEVEL 31 MEQ/L (21-32); CHLORIDE LEVEL 100 MEQ/L (98-107); CREATININE FOR GFR 0.92 MG/DL (0.70-1.30); GLOMERULAR FILTRATION RATE > 60.0 (>60); GLUCOSE, FASTING 125 MG/DL (70-100); LIPASE 985 U/L (73-393); SODIUM LEVEL 137 MEQ/L (136-145); TOTAL PROTEIN 8.1 GM/DL (6.4-8.2)
== END ==
LOC: M SFHCADAM 16:37
PROVIDERS: ATTEND Family Medicine
DX: R10.9 Unspecified abdominal pain (principal)

== ENCOUNTER → 2020-01-31 | Outpatient (CLI) | payer OTHER ==
[~2020-01-31] MED LIST changes: +GASTROGRAFIN SOLUTION 30ML (Q9963) As Ordered ONE; +ISOVUE-370 76% 100ML VIAL As Ordered ONE
--- NOTE | 2020-02-01 05:21 | REP ---
Clinical: Upper abdominal pain. Pancreatic cystic lesion. Technique: Axial contrast enhanced images of the abdomen and pelvis using oral (per protocol) and 100 ml Isovue 370 intravenous contrast material with delayed images of the abdomen. Coronal and sagittal re-formations obtained. Comparison: 12/13/2019, 09/24/2019. Findings: The patient appears to be status post splenectomy, left nephrectomy and partial pancreatectomy. The previously identified complex cyst with calcifications along the residual distal body of the pancreas is considerably decreased in size and now measures roughly 1.5 cm diameter (previously measuring greater than 3.8 cm diameter). Previously noted anterior upper abdominal ascites has considerably decreased with a small amount of residual ascites and possible 4.3 cm focal cystic collection along the anterior margin of the left hepatic lobe. Irregular appearance and possible small fluid involving the left adrenal gland is identified and similar to prior examination. The right adrenal gland, right kidney, liver and gallbladder appear normal. The enteric system demonstrates evidence for prior partial left colonic resection without obstruction or acute inflammatory enteric process. Pelvis demonstrates normal bladder and age appropriate prostate/seminal vesicles. No free air. No obvious significant adenopathy or new mass lesion identified. Abdominal aorta without aneurysm or dissection. Musculoskeletal structures are intact. The lung bases demonstrate chronic fibroatelectatic changes at the left base along with small new pleural fluid and linear atelectasis. Impression: 1. The upper abdominal ascites and complex cystic lesion in the residual body of the pancreas appear improved. 2. A small focal ovoid fluid collection along the anterior margin of the left hepatic lobe which may represent a subcapsular collection measures approximately 4.3 cm maximal diameter. 3. Stranding in the left upper quadrant is again noted which may represent residual postsurgical changes or mild infectious/inflammatory response cannot be excluded. 4. Very small new left lower lobe atelectasis and small left pleural effusion. Electronically Signed by Tyler Love MD 02/01/2020 05:12 A
== END ==
LOC: M RAD 11:12
PROVIDERS: ATTEND Family Medicine
DX: R10.10 Upper abdominal pain, unspecified (principal); Z98.890 Other specified postprocedural states; K86.2 Cyst of pancreas; R18.8 Other ascites; K76.89 Other specified diseases of liver; Z90.49 Acquired absence of other specified parts of digestive tract; J98.11 Atelectasis; J90 Pleural effusion, not elsewhere classified
CPT/HCPCS: 74177; Q9963; Q9967

== ENCOUNTER → 2020-02-04 | Outpatient (REF) | payer OTHER ==
[~2020-02-04] MED LIST changes: -GASTROGRAFIN SOLUTION 30ML (Q9963) As Ordered ONE; -ISOVUE-370 76% 100ML VIAL As Ordered ONE
[2020-02-04 13:34] LABS: BASO # 0.1 10^3/uL (0.0-0.2); BASO % 1.3 % (0.0-1.0); EOS # 0.3 10^3/uL (0.0-0.5); EOS % 3.3 % (0.0-3.0); HEMATOCRIT 40.4 % (42.0-52.0); HEMOGLOBIN 12.6 g/dl (13.5-17.5); LYMPH # 2.7 10^3/uL (1.5-5.0); LYMPH % 32.8 % (24.0-44.0); MEAN CORPUSCULAR HEMOGLOBIN 27.8 pg (27.0-33.0); MEAN CORPUSCULAR HGB CONC 31.2 g/dl (32.0-36.5); MONO # 1.1 10^3/uL (0.0-0.8); MONO % 13.8 % (0.0-5.0); NEUTROPHILS % 48.4 % (36.0-66.0); PLATELET COUNT, AUTOMATED 587 10^3/uL (150-450); RED BLOOD COUNT 4.54 10^6/uL (4.30-6.10); WHITE BLOOD COUNT 8.3 10^3/uL (4.0-10.0)
[2020-02-04 13:48] LABS: ALT/SGPT 33 U/L (12-78); AMYLASE 58 U/L (25-115); BILIRUBIN,TOTAL 0.3 MG/DL (0.2-1.0); BLOOD UREA NITROGEN 24 MG/DL (7-18); CALCIUM LEVEL 10.4 MG/DL (8.5-10.1); CARBON DIOXIDE LEVEL 30 MEQ/L (21-32); CHLORIDE LEVEL 103 MEQ/L (98-107); CREATININE FOR GFR 0.94 MG/DL (0.70-1.30); GLOMERULAR FILTRATION RATE > 60.0 (>60); GLUCOSE, FASTING 223 MG/DL (70-100); LIPASE 178 U/L (73-393); POTASSIUM SERUM 5.4 MEQ/L (3.5-5.1); PREALBUMIN 29.7 MG/DL (20.0-40.0); SODIUM LEVEL 138 MEQ/L (136-145)
[2020-02-04 14:00] LABS: HEMOGLOBIN A1c 8.8 %
== END ==
LOC: M LABDRWAD 12:46
PROVIDERS: ATTEND Surgery
DX: Z01.89 Encounter for other specified special examinations (principal)

== ENCOUNTER 2020-05-01 21:28 | Observation (INO) | payer OTHER, MEDICAID ==
[2020-05-01] MEDS ORDERED: HumuLIN R (REGULAR) INSULIN (NovoLIN R) **100U/ML** PER UNIT ONE (22:45)
[2020-05-01] MEDS ORDERED: HumuLIN R (REGULAR) INSULIN (NovoLIN R) **100U/ML** PER UNIT As Ordered ONE (22:45)
[2020-05-02] MEDS ORDERED: ATORVASTATIN 20 MG TAB ONE (11:47)
[2020-05-02] MEDS ORDERED: ATORVASTATIN 20 MG TAB As Ordered ONE (11:47)
[2020-05-02] MEDS ORDERED: gemfibroziL 600 MG TAB ONE (11:47)
[2020-05-02] MEDS ORDERED: HumaLOG INSULIN (NovoLOG) PER UNIT As Ordered ONE (11:48)
[2020-05-02] MEDS ORDERED: gemfibroziL 600 MG TAB As Ordered ONE (11:48)
[2020-06-08 14:19] LABS: HEMATOCRIT 42.4 % (42.0-52.0); MEAN CORPUSCULAR HEMOGLOBIN 27.8 pg (27.0-33.0); MEAN CORPUSCULAR VOLUME 84.3 fl (80.0-96.0); PLATELET COUNT, AUTOMATED 428 10^3/uL (150-450); RED BLOOD COUNT 5.03 10^6/uL (4.30-6.10); WHITE BLOOD COUNT 10.8 10^3/uL (4.0-10.0)
[2020-06-08 14:25] LABS: ATYPICAL LYMPH 1 % (0-5); EOSINOPHILS 6 % (0-3); LYMPHOCYTES 36 % (16-44); MONOCYTES 11 % (0-5); NEUTROPHILS 46 % (28-66); PLATELET ESTIMATE INCREASED (NORMAL)
[2020-06-08 17:08] LABS: BASO # 0.1 10^3/uL (0.0-0.2); BASO % 0.9 % (0.0-1.0); EOS # 0.3 10^3/uL (0.0-0.5); EOS % 2.8 % (0.0-3.0); HEMATOCRIT 41.4 % (42.0-52.0); HEMOGLOBIN 13.6 g/dl (13.5-17.5); LYMPH # 3.6 10^3/uL (1.5-5.0); LYMPH % 33.4 % (24.0-44.0); MEAN CORPUSCULAR HGB CONC 32.9 g/dl (32.0-36.5); MEAN CORPUSCULAR VOLUME 85.4 fl (80.0-96.0); MONO # 1.1 10^3/uL (0.0-0.8); MONO % 10.5 % (0.0-5.0); NEUTROPHILS # 5.5 10^3/uL (1.5-8.5); NEUTROPHILS % 51.7 % (36.0-66.0); PLATELET COUNT, AUTOMATED 422 10^3/uL (150-450); RED BLOOD COUNT 4.85 10^6/uL (4.30-6.10); WHITE BLOOD COUNT 10.7 10^3/uL (4.0-10.0)
--- NOTE | 2020-06-19 12:17 | ECGEPIP ---
SINUS RHYTHM POSSIBLE RIGHT VENTRICULAR CONDUCTION DELAY BORDERLINE ECG NO OLD AVAILABLE SEE SCANNED DOWNTIME REPORT MTDD
[2020-07-11 12:13] LABS: HEMOGLOBIN A1c 12.1 %; VENOUS BASE EXCESS -1.8 (-2.0-2.0); VENOUS O2 SATURATION 88.2 % (60.0-80.0); VENOUS PARTIAL PRESSURE CO2 44.8 mmHg (38.0-50.0); VENOUS PARTIAL PRESSURE O2 57.1 mmHg (30.0-50.0); VENOUS PH 7.347 UNITS (7.330-7.430); VENOUS SITE NOT GIVEN; VENOUS STANDARD HCO3 22.8 MEQ/L; VENOUS TOTAL CO2 25.4 MEQ/L (24.0-28.0)
[2020-07-11 12:14] LABS: BLOOD UREA NITROGEN 27 MG/DL (7-18); CARBON DIOXIDE LEVEL 29 mmol/L (20-29); CHLORIDE LEVEL 103 MEQ/L (98-107); CREATININE FOR GFR 1.02 MG/DL (0.70-1.30); GLOMERULAR FILTRATION RATE > 60.0 (>60); GLUCOSE, FASTING 191 MG/DL (70-100); POTASSIUM SERUM 3.8 MEQ/L (3.5-5.1); SODIUM LEVEL 137 MEQ/L (136-145)
[2020-07-11 12:15] LABS: ALBUMIN 4.1 GM/DL (3.2-5.2); ALT/SGPT 26 IU/L (0-32); BILIRUBIN,DIRECT < 0.1 MG/DL (0.0-0.2); BILIRUBIN,TOTAL 0.2 MG/DL (0.2-1.0); CK-MB VALUE MASS 1.6 NG/ML (<3.6); CPK CREATINE PHOSPHOKINASE 88 U/L (39-308); MAGNESIUM LEVEL 2.3 MG/DL (1.8-2.4); MB/CK RELATIVE INDEX 1.81 (< OR =4); PHOSPHORUS LEVEL 4.1 MG/DL (2.5-4.9); TOTAL PROTEIN 7.9 GM/DL (6.4-8.2); TROPONIN I < 0.02 NG/ML (< 0.10)
[2020-07-12 10:21] LABS: BLOOD UREA NITROGEN 22 MG/DL (7-18); CALCIUM LEVEL 8.5 MG/DL (8.5-10.1); CARBON DIOXIDE LEVEL 26 MEQ/L (21-32); CHLORIDE LEVEL 108 MEQ/L (98-107); CHOLESTEROL LEVEL 103 MG/DL (<200); CHOLESTEROL RISK RATIO 3.322 (<5); CREATININE FOR GFR 0.96 MG/DL (0.70-1.30); GLOMERULAR FILTRATION RATE > 60.0 (>60); GLUCOSE, FASTING 214 MG/DL (70-100); HDL CHOLESTEROL 31 MG/DL (>40); LDL CHOLESTEROL 31 MG/DL (<100); NON-HDL-C 72 MG/DL; POTASSIUM SERUM 4.2 MEQ/L (3.5-5.1); SODIUM LEVEL 140 MEQ/L (136-145); TRIGLYCERIDES LEVEL 204 MG/DL (<150)
== END 2020-05-02 01:39 | disposition left against medical advice (07) ==
LOC: M ED 21:28 → M MSPAV 21:29
PROVIDERS: ADMIT Internal Medicine; ATTEND Internal Medicine
DX: K85.90 Acute pancreatitis without necrosis or infection, unspecified (principal); R74.8 Abnormal levels of other serum enzymes; E11.65 Type 2 diabetes mellitus with hyperglycemia; E66.9 Obesity, unspecified; R10.9 Unspecified abdominal pain; G89.29 Other chronic pain; E78.00 Pure hypercholesterolemia, unspecified

== ENCOUNTER → 2020-05-07 | Outpatient (CLI) | payer OTHER, MEDICAID ==
[2020-07-04 22:15] LABS: BLOOD UREA NITROGEN 24 MG/DL (7-18); CALCIUM LEVEL 9.3 MG/DL (8.5-10.1); CARBON DIOXIDE LEVEL 27 MEQ/L (21-32); CHLORIDE LEVEL 106 MEQ/L (98-107); GLOMERULAR FILTRATION RATE > 60.0 (>60); GLUCOSE, FASTING 236 MG/DL (70-100); POTASSIUM SERUM 4.1 MEQ/L (3.5-5.1); SODIUM LEVEL 139 MEQ/L (136-145)
== END ==
LOC: M LAB 13:00
PROVIDERS: ATTEND Nurse Practitioner Family
DX: E11.65 Type 2 diabetes mellitus with hyperglycemia (principal)

== ENCOUNTER 2020-05-13 17:17 | Emergency (ER) | payer MEDICAID, OTHER ==
[2020-05-13] MEDS ORDERED: ONDANSETRON 4MG/2ML VIAL ONE (20:19)
[2020-05-13] MEDS ORDERED: KETOROLAC 30 MG/ML 1ML VIAL As Ordered ONE (20:19)
[2020-05-13] MEDS ORDERED: KETOROLAC 30 MG/ML 1ML VIAL ONE (20:19)
[2020-05-13] MEDS ORDERED: ONDANSETRON 4MG/2ML VIAL As Ordered ONE (20:19)
[2020-06-26 10:29] LABS: BASO # 0.1 10^3/uL (0.0-0.2); BASO % 0.9 % (0.0-1.0); EOS # 0.2 10^3/uL (0.0-0.5); HEMATOCRIT 38.1 % (42.0-52.0); HEMOGLOBIN 12.4 g/dl (13.5-17.5); LYMPH # 3.2 10^3/uL (1.5-5.0); MEAN CORPUSCULAR HEMOGLOBIN 28.8 pg (27.0-33.0); MEAN CORPUSCULAR HGB CONC 32.5 g/dl (32.0-36.5); MEAN CORPUSCULAR VOLUME 88.6 fl (80.0-96.0); MONO # 1.3 10^3/uL (0.0-0.8); MONO % 12.1 % (0.0-5.0); NEUTROPHILS # 5.6 10^3/uL (1.5-8.5); NEUTROPHILS % 53.7 % (36.0-66.0); PLATELET COUNT, AUTOMATED 470 10^3/uL (150-450); WHITE BLOOD COUNT 10.4 10^3/uL (4.0-10.0)
[2020-06-28 10:30] LABS: INR 0.9; PROTHROMBIN TIME 12.3 SECONDS (12.5-14.3)
[2020-08-01 08:30] LABS: BLOOD UREA NITROGEN 23 MG/DL (7-18); CHLORIDE LEVEL 106 MEQ/L (98-107); CREATININE FOR GFR 1.25 MG/DL (0.70-1.30); GLOMERULAR FILTRATION RATE > 60.0 (>60); GLUCOSE, FASTING 217 MG/DL (70-100); POTASSIUM SERUM 4.2 MEQ/L (3.5-5.1); SODIUM LEVEL 140 MEQ/L (136-145)
[2020-08-01 08:31] LABS: ALBUMIN 3.3 GM/DL (3.2-5.2); ALT/SGPT 27 U/L (12-78); AMYLASE 94 U/L (25-115); BILIRUBIN,TOTAL 0.3 MG/DL (0.2-1.0); CALCIUM LEVEL 8.9 MG/DL (8.5-10.1); CARBON DIOXIDE LEVEL 28 MEQ/L (21-32); ETHYL ALCOHOL (ETHANOL) < 0.003 % (0.000-0.010); LIPASE 740 U/L (73-393)
== END 2020-05-13 23:30 | disposition home or self-care (01) ==
LOC: M ED 17:17
DX: K86.1 Other chronic pancreatitis (principal); E11.9 Type 2 diabetes mellitus without complications; I10 Essential (primary) hypertension; F17.210 Nicotine dependence, cigarettes, uncomplicated; Z79.84 Long term (current) use of oral hypoglycemic drugs; Z79.899 Other long term (current) drug therapy
CPT/HCPCS: 74021; 80053; 81001; 82150; 83605; 83690; 85025; 85610; 96374; 96375; 99283; G0480; J1885; J2405

== ENCOUNTER → 2020-06-26 | Outpatient (REF) | payer OTHER, MEDICAID ==
[2020-06-26 13:01] LABS: BLOOD UREA NITROGEN 25 MG/DL (7-18); CALCIUM LEVEL 9.2 MG/DL (8.5-10.1); CARBON DIOXIDE LEVEL 30 MEQ/L (21-32); CHLORIDE LEVEL 104 MEQ/L (98-107); CREATININE FOR GFR 1.06 MG/DL (0.70-1.30); GLOMERULAR FILTRATION RATE > 60.0 (>60); GLUCOSE, FASTING 255 MG/DL (70-100); POTASSIUM SERUM 5.2 MEQ/L (3.5-5.1); SODIUM LEVEL 135 MEQ/L (136-145)
== END ==
LOC: M LABDRWAD 12:20
PROVIDERS: ATTEND Physician Assistant
DX: E11.65 Type 2 diabetes mellitus with hyperglycemia (principal)

== ENCOUNTER → 2020-08-20 | Outpatient (REF) | payer OTHER ==
[2020-08-20 12:26] LABS: APPEARANCE, URINE CLEAR (CLEAR); BACTERIA, URINE AUTO NEGATIVE (NEGATIVE); BILIRUBIN, URINE AUTO NEGATIVE (NEGATIVE); BLOOD, URINE BLOOD NEGATIVE (NEGATIVE); COLOR, URINE YELLOW (YELLOW); GLUCOSE, URINE (UA) AUTO 1+ mg/dL (NEGATIVE); KETONE, URINE AUTO NEGATIVE (NEGATIVE); LEUKOCYTE ESTERASE, URINE AUTO NEGATIVE (NEGATIVE); MUCUS, URINE SMALL (NEGATIVE); NITRITE, URINE AUTO NEGATIVE (NEGATIVE); PROTEIN, URINE AUTO 1+ mg/dL (NEGATIVE); RBC, URINE AUTO 0 /HPF (0-3); SQUAMOUS EPITHELIAL CELL UR AU 1 /HPF (0-6); UROBILINOGEN, URINE AUTO 0.2 mg/dL (0.0-2.0); WBC, URINE AUTO 0 /HPF (0-3)
[2020-08-20 12:44] LABS: BASO # 0.1 10^3/uL (0.0-0.2); EOS # 0.2 10^3/uL (0.0-0.5); EOS % 1.5 % (0.0-3.0); HEMATOCRIT 43.4 % (42.0-52.0); HEMOGLOBIN 14.5 g/dl (13.5-17.5); LYMPH # 3.8 10^3/uL (1.5-5.0); LYMPH % 30.2 % (24.0-44.0); MEAN CORPUSCULAR HEMOGLOBIN 29.8 pg (27.0-33.0); MEAN CORPUSCULAR HGB CONC 33.4 g/dl (32.0-36.5); MEAN CORPUSCULAR VOLUME 89.1 fl (80.0-96.0); MONO # 1.4 10^3/uL (0.0-0.8); MONO % 10.8 % (0.0-5.0); NEUTROPHILS # 7.1 10^3/uL (1.5-8.5); NEUTROPHILS % 55.9 % (36.0-66.0); PLATELET COUNT, AUTOMATED 365 10^3/uL (150-450); RED BLOOD COUNT 4.87 10^6/uL (4.30-6.10); WHITE BLOOD COUNT 12.7 10^3/uL (4.0-10.0)
[2020-08-20 13:19] LABS: ALBUMIN 3.7 GM/DL (3.2-5.2); ALT/SGPT 53 U/L (12-78); BILIRUBIN,TOTAL 0.4 MG/DL (0.2-1.0); BLOOD UREA NITROGEN 23 MG/DL (7-18); CALCIUM LEVEL 9.2 MG/DL (8.5-10.1); CARBON DIOXIDE LEVEL 26 MEQ/L (21-32); CHLORIDE LEVEL 104 MEQ/L (98-107); GLOMERULAR FILTRATION RATE > 60.0 (>60); GLUCOSE, FASTING 190 MG/DL (70-100); POTASSIUM SERUM 4.6 MEQ/L (3.5-5.1); SODIUM LEVEL 136 MEQ/L (136-145); TOTAL PROTEIN 7.4 GM/DL (6.4-8.2)
== END ==
LOC: M SFHCADAM 10:56
PROVIDERS: ATTEND Family Medicine
DX: R07.9 Chest pain, unspecified (principal); R10.9 Unspecified abdominal pain

== ENCOUNTER → 2020-09-08 | Outpatient (REF) | payer OTHER ==
[2020-09-08 17:11] LABS: BASO # 0.1 10^3/uL (0.0-0.2); BASO % 0.8 % (0.0-1.0); EOS # 0.3 10^3/uL (0.0-0.5); EOS % 2.6 % (0.0-3.0); HEMATOCRIT 43.9 % (42.0-52.0); HEMOGLOBIN 14.6 g/dl (13.5-17.5); LYMPH # 3.8 10^3/uL (1.5-5.0); MEAN CORPUSCULAR HEMOGLOBIN 30.1 pg (27.0-33.0); MEAN CORPUSCULAR HGB CONC 33.3 g/dl (32.0-36.5); MEAN CORPUSCULAR VOLUME 90.5 fl (80.0-96.0); MONO # 1.5 10^3/uL (0.0-0.8); MONO % 13.2 % (0.0-5.0); NEUTROPHILS # 5.8 10^3/uL (1.5-8.5); PLATELET COUNT, AUTOMATED 342 10^3/uL (150-450); RED BLOOD COUNT 4.85 10^6/uL (4.30-6.10); WHITE BLOOD COUNT 11.6 10^3/uL (4.0-10.0)
[2020-09-08 17:18] LABS: BLOOD UREA NITROGEN 31 MG/DL (7-18); CALCIUM LEVEL 9.3 MG/DL (8.5-10.1); CARBON DIOXIDE LEVEL 29 MEQ/L (21-32); CHLORIDE LEVEL 104 MEQ/L (98-107); CK-MB VALUE MASS 2.9 NG/ML (<3.6); CPK CREATINE PHOSPHOKINASE 154 U/L (39-308); CREATININE FOR GFR 1.35 MG/DL (0.70-1.30); GLOMERULAR FILTRATION RATE > 60.0 (>60); GLUCOSE, FASTING 210 MG/DL (70-100); MB/CK RELATIVE INDEX 1.88 (< OR =4); NT-PRO BNP 18 PG/ML (<125); POTASSIUM SERUM 4.7 MEQ/L (3.5-5.1); SODIUM LEVEL 136 MEQ/L (136-145); TROPONIN I < 0.02 NG/ML (< 0.10)
== END ==
LOC: M SFHCADAM 14:36
PROVIDERS: ATTEND Family Medicine
DX: R06.00 Dyspnea, unspecified (principal)

== ENCOUNTER → 2020-09-08 | Outpatient (CLI) | payer OTHER ==
--- NOTE | 2020-09-08 17:40 | REP ---
INDICATION: CHEST PAIN COMPARISON: 11/07/2019. TECHNIQUE: PA/Lateral FINDINGS: Lungs: Clear, no infiltrate. Heart: Normal in size. Mediastinum: Mediastinal silhouette unremarkable. Pleural angles: Unremarkable.. Bones and soft tissues: Unremarkable. IMPRESSION: No acute pulmonary disease. <Electronically signed by Channing Donnelly > 09/08/20 1750
== END ==
LOC: M ADAMS 14:38
PROVIDERS: ATTEND Family Medicine
DX: R07.9 Chest pain, unspecified (principal)

== ENCOUNTER → 2020-09-24 | Outpatient (REF) | payer OTHER, SELFPAY | LOC: M SFHCADAM 12:49 | PROVIDERS: ATTEND Family Medicine | DX: R09.89 Other specified symptoms and signs involving the circulatory and respiratory systems (principal); Z11.59 Encounter for screening for other viral diseases ==

== ENCOUNTER → 2020-10-02 | Outpatient (REF) | payer OTHER ==
[2020-10-02 13:20] LABS: BLOOD UREA NITROGEN 14 MG/DL (7-18); C REACTIVE PROTEIN QUANTITATIV 0.41 MG/DL (0.00-0.30); CALCIUM LEVEL 9.1 MG/DL (8.5-10.1); CARBON DIOXIDE LEVEL 27 MEQ/L (21-32); CHLORIDE LEVEL 103 MEQ/L (98-107); CREATININE FOR GFR 1.08 MG/DL (0.70-1.30); GLOMERULAR FILTRATION RATE > 60.0 (>60); GLUCOSE, FASTING 157 MG/DL (70-100); POTASSIUM SERUM 4.7 MEQ/L (3.5-5.1); RHEUMATOID FACTOR QUANT < 10.0 IU/ML (<15.0); SODIUM LEVEL 137 MEQ/L (136-145)
[2020-10-04 12:07] LABS: ANTINUCLEAR ANTIBODIES DIRECT Negative (Negative)
== END ==
LOC: M SFHCADAM 08:46
PROVIDERS: ATTEND Family Medicine
DX: M79.89 Other specified soft tissue disorders (principal); R06.00 Dyspnea, unspecified

== ENCOUNTER → 2020-10-02 | Outpatient (REF) | payer OTHER ==
[2020-10-02 17:03] LABS: FREE T4 0.88 NG/DL (0.76-1.46); THYROID STIMULATING HORMONE 1.88 uIU/ML (0.358-3.740)
[2020-10-02 17:21] LABS: HEMOGLOBIN A1c 8.9 %
== END ==
LOC: M LABDRWAD 16:34
DX: Z79.899 Other long term (current) drug therapy (principal)

== ENCOUNTER → 2020-10-17 | Outpatient (REF) | payer OTHER ==
[2020-10-17 13:24] LABS: BLOOD UREA NITROGEN 21 MG/DL (7-18); CALCIUM LEVEL 9.7 MG/DL (8.5-10.1); CARBON DIOXIDE LEVEL 30 MEQ/L (21-32); CHLORIDE LEVEL 101 MEQ/L (98-107); GLOMERULAR FILTRATION RATE > 60.0 (>60); GLUCOSE, FASTING 230 MG/DL (70-100); POTASSIUM SERUM 5.4 MEQ/L (3.5-5.1); SODIUM LEVEL 136 MEQ/L (136-145)
[2020-10-17 13:25] LABS: HEMATOCRIT 44.4 % (42.0-52.0); HEMOGLOBIN 14.8 g/dl (13.5-17.5); MEAN CORPUSCULAR HEMOGLOBIN 30.4 pg (27.0-33.0); MEAN CORPUSCULAR HGB CONC 33.3 g/dl (32.0-36.5); MEAN CORPUSCULAR VOLUME 91.2 fl (80.0-96.0); PLATELET COUNT, AUTOMATED 370 10^3/uL (150-450); RED BLOOD COUNT 4.87 10^6/uL (4.30-6.10); WHITE BLOOD COUNT 10.2 10^3/uL (4.0-10.0)
== END ==
LOC: M LABDRWAD 12:40
PROVIDERS: ATTEND Internal Medicine Cardiovascular Disease
DX: I20.0 Unstable angina (principal)

== ENCOUNTER → 2020-10-17 | Outpatient (REF) | payer OTHER | LOC: M SFHCADAM 10:07 | PROVIDERS: ATTEND Family Medicine | DX: E11.69 Type 2 diabetes mellitus with other specified complication (principal) ==

== ENCOUNTER → 2020-10-22 | Outpatient (CLI) | payer OTHER ==
[~2020-10-22] MED LIST changes: +ADME100I; +DULO30CA9 PO; -LISI-542 PO; +LISI-898 PO; +PEPC40TA12 PO; +PROT1TAB2 PO; +[UNRECOGNIZED DRUG - CODE]; +multi; +multivitamin
--- NOTE | 2020-10-29 08:33 | SLEEPHOME ---
DATE: 10/22/2020 ORDERED BY: Dick Jaeger MD Diagnostic home sleep testing was performed due to concern for the obstructive sleep apnea syndrome. For testing, a nocturnal T3 respiratory monitoring device was used. Continuous record was made of pulse, oxygen saturation, air flow, chest and abdominal strain, and body position. Nine hours and 59 minutes of data were reviewed. There were 7 hours and 30 minutes marked as time in bed. During the interval marked time in bed, there were 73 respiratory events identified of 10 seconds in duration or greater for a respiratory event index of 9.7. The events were obstructive. Baseline pulse rate was 86 beats per minute. Pulse rate ranged 72 to 113. Baseline saturation was 90%. Saturations fell to 81%. Testing was performed in both the supine and nonsupine positions. IMPRESSION: Abnormal home sleep testing with repetitive respiratory events and oxygen desaturations to 81% with a respiratory event index of 9.7 is consistent with the obstructive sleep apnea syndrome. RECOMMENDATION: The patient should be encouraged to undergo a formal sleep evaluation.
== END ==
LOC: M SLEEP HO 10:18
PROVIDERS: ATTEND Internal Medicine Cardiovascular Disease
DX: R06.83 Snoring (principal)

== ENCOUNTER 2020-11-09 13:34 | Emergency (ER) | payer OTHER ==
[~2020-11-09] VITALS: Ht 172.7 cm; Wt 97.6 kg
[~2020-11-09 13:34] MED LIST changes: -ADME100I; -DULO30CA9 PO; -PEPC40TA12 PO; -PROT1TAB2 PO; -[UNRECOGNIZED DRUG - CODE]; -multi; -multivitamin
[2020-11-09] MEDS ORDERED: NS 1,000 ML IV ONE (14:30)
--- NOTE | 2020-11-09 14:38 | REP ---
INDICATION: Abdominal pain. COMPARISON: 05/13/2020. TECHNIQUE: SINGLE PORTABLE AP VIEW OF THE CHEST WAS PERFORMED. FINDINGS: THERE IS NO ACUTE INFILTRATE OR PULMONARY EDEMA. LUNGS ARE CLEAR. HEART IS NOT SIGNIFICANTLY ENLARGED. MEDIASTINAL SILHOUETTE IS UNREMARKABLE. THE VISUALIZED OSSEOUS STRUCTURES ARE INTACT. IMPRESSION: NO ACUTE PULMONARY DISEASE. <Electronically signed by Channing Donnelly > 11/09/20 [id number]
[2020-11-09 15:08] LABS: BASO # 0.1 10^3/uL (0.0-0.2); BASO % 0.7 % (0.0-1.0); EOS # 0.2 10^3/uL (0.0-0.5); EOS % 1.2 % (0.0-3.0); HEMATOCRIT 42.3 % (42.0-52.0); HEMOGLOBIN 14.4 g/dl (13.5-17.5); LYMPH # 3.6 10^3/uL (1.5-5.0); MEAN CORPUSCULAR HEMOGLOBIN 30.5 pg (27.0-33.0); MEAN CORPUSCULAR VOLUME 89.6 fl (80.0-96.0); MONO # 0.9 10^3/uL (0.0-0.8); MONO % 6.7 % (0.0-5.0); NEUTROPHILS # 9.1 10^3/uL (1.5-8.5); PLATELET COUNT, AUTOMATED 374 10^3/uL (150-450); RED BLOOD COUNT 4.72 10^6/uL (4.30-6.10); WHITE BLOOD COUNT 13.9 10^3/uL (4.0-10.0)
[2020-11-09 15:19] LABS: INR 0.83; PROTHROMBIN TIME 11.6 SECONDS (12.5-14.3)
[2020-11-09 15:20] LABS: PARTIAL THROMBOPLASTIN TIME 29.4 SECONDS (24.2-38.5)
[2020-11-09] MEDS ORDERED: ISOVUE-370 76% 100ML VIAL As Ordered ONE (15:36)
[2020-11-09] MEDS ORDERED: ONDANSETRON 4MG/2ML VIAL IV ONE (15:45)
[2020-11-09] MEDS ORDERED: MORPHINE 4 MG/ML 1ML VIAL/SYRINGE (J2270) IV ONE ×2 (15:45→16:00)
[2020-11-09 15:51] LABS: ALBUMIN 3.9 GM/DL (3.2-5.2); ALT/SGPT 45 U/L (12-78); AMYLASE 42 U/L (25-115); BILIRUBIN,DIRECT < 0.1 MG/DL (0.0-0.2); BILIRUBIN,TOTAL 0.5 MG/DL (0.2-1.0); CK-MB VALUE MASS 3.5 NG/ML (<3.6); CPK CREATINE PHOSPHOKINASE 279 U/L (39-308); LIPASE 140 U/L (73-393); MB/CK RELATIVE INDEX 1.25 (< OR =4); TOTAL PROTEIN 7.6 GM/DL (6.4-8.2); TROPONIN I < 0.02 NG/ML (< 0.10)
[2020-11-09] MEDS ORDERED: DULO30CA9 PO (16:06)
[2020-11-09] MEDS ORDERED: multi (16:07)
[2020-11-09] MEDS ORDERED: multivitamin (16:07)
[2020-11-09] MEDS ORDERED: PEPC40TA12 PO (16:08)
[2020-11-09] MEDS ORDERED: [UNRECOGNIZED DRUG - CODE] (16:11)
[2020-11-09] MEDS ORDERED: ADME100I (16:11)
--- NOTE | 2020-11-09 16:37 | REP ---
INDICATION: pancreatits; multiple surg in past COMPARISON: 05/02/2020. TECHNIQUE: CT Scan of the abdomen and pelvis was performed with intravenous administration of 100 cc of Isovue 370, without oral contrast. Sagittal and coronal reconstruction images are performed. FINDINGS: Lung bases: Mild fibro atelectatic changes are noted as well as a tiny calcified granuloma in the right lung base. Liver: Normal Gallbladder: Unremarkable. Spleen: Prior splenectomy. Adrenals: Prior left adrenalectomy. Pancreas: Prior distal pancreatectomy. No acute findings in the pancreatic head or body. Kidneys: Prior left nephrectomy. Right kidney appears normal. Small and large bowel: Unremarkable. Free fluid: None. Abdominal aorta: No aneurysm or dissection. Adenopathy: None. Appendix: Not inflamed. Osseous structures: There are mild degenerative changes of the spine without compression deformity. Pelvis: No mass. IMPRESSION: Stable postsurgical changes. No acute findings. <Electronically signed by Channing Donnelly > 11/09/20 [id number]
[2020-11-09] MEDS ORDERED: PANTOPRAZOLE 40MG VIAL (C9113 PER 1) IV ONE (17:00)
[2020-11-09] MEDS ORDERED: GI COCKTAIL 50ML BTL(HYOSCYAMINE/MAALOX/LIDOCAINE VISCOUS)(1:3:1) PO ONE (17:00)
--- NOTE | 2020-11-09 17:21 | ECGEPIP ---
[facility] - ED Test Date: 2020-11-09 Pat Name: YORDAN SYED Department: Room: - Gender: Male Pet Groomer: nhung : 1975 Requested By: Basil Hall Order Number: [id number] Reading MD: Basil Hall Measurements Intervals [place] Rate: 85 P: 16 CA: 184 QRS: 26 QRSD: 85 T: 5 QT: 350 QTc: 416 Interpretive Statements SINUS RHYTHM POSSIBLE RIGHT VENTRICULAR CONDUCTION DELAY NONSPECIFIC ST T WAVE CHANGES CW 06/25/[address] T WAVE CHANGES Electronically Signed on 11-09-2020 17:21:42 EST by Basil Hall
[2020-11-09] MEDS ORDERED: PROT1TAB2 PO (17:41)
[2020-11-09 17:45] VITALS: BP 131/75
--- NOTE | 2020-11-09 17:52 | REPVR ---
PROCEDURE INFORMATION: Exam: US Abdomen, Limited; Right Upper Quadrant Exam date and time: 11/09/2020 5:07 PM Age: 45 years old Clinical indication: Abdominal pain; Acute; Additional info: Ruq pain TECHNIQUE: Imaging protocol: US abdomen. Real time ultrasound with image documentation. Limited exam focused on the right upper quadrant. COMPARISON: CT ABD/PEL W/IV CONTRAST ONLY 11/09/2020 3:26 PM FINDINGS: Liver: The liver is generally increased in echotexture. Gallbladder: Normal. No gallstones. There is no gallbladder wall thickening. Common bile duct: Common bile duct measures 0.41 cm. Pancreas: Pancreas is not seen due to bowel gas. Right kidney: The right kidney measures 12.6 x 7.7 by 7.5 cm. No hydronephrosis or mass in the right kidney. IMPRESSION: 1. No gallstones, no ductal dilatation. 2. Generalized increase in liver echotexture suggests underlying hepatic steatosis. Electronically signed by: Hannah Mcfarlane On 11/09/2020 17:52:05 PM
== END 2020-11-09 18:07 | disposition home or self-care (01) ==
LOC: M ED 13:34
DX: K29.70 Gastritis, unspecified, without bleeding (principal); E10.9 Type 1 diabetes mellitus without complications; I10 Essential (primary) hypertension; E78.9 Disorder of lipoprotein metabolism, unspecified; Z87.19 Personal history of other diseases of the digestive system; Z79.4 Long term (current) use of insulin; Z79.899 Other long term (current) drug therapy
CPT/HCPCS: 71045; 74177; 76705; 80047; 80076; 82150; 82550; 82553; 83605; 83690; 85025; 85610; 85730; 87040; 93005; 93041; 96361; 96374; 96375; 99285; C9113; J2270; J2405; Q9967

== ENCOUNTER → 2020-12-22 | Outpatient (CLI) | payer OTHER ==
[~2020-12-22] MED LIST changes: +ADME100I; +DULO30CA9 PO; +PEPC40TA12 PO; +PROT1TAB2 PO; +[UNRECOGNIZED DRUG - CODE]; +multi; +multivitamin
--- NOTE | 2020-12-22 10:42 | REP ---
INDICATION: EPIGASTRIC PAIN. COMPARISON: None TECHNIQUE/RADIOTRACER AND DOSE: FOLLOWING THE INTRAVENOUS ADMINISTRATION OF 6.6 MCI TECHNETIUM 99 M-MEBROFENIN, MULTIPLE IMAGES OF THE RIGHT UPPER QUADRANT ARE PERFORMED FOR 60 MINUTES. NEXT 8 OZ OF ENSURE ENLIVE IS INGESTED AND FURTHER IMAGING IS PERFORMED FOR 65 MINUTES. FINDINGS: THE GALLBLADDER IS VISUALIZED AT 15 MINUTES POST INJECTION. THERE IS BILIARY TO BOWEL TRANSIT AT 20MINUTES POST INJECTION. THERE IS NO SCINTIGRAPHIC EVIDENCE OF CHOLECYSTITIS. GALLBLADDER EJECTION FRACTION IS CALCULATED TO BE 48% WHICH IS NORMAL. IMPRESSION: NORMAL GALLBLADDER EJECTION FRACTION. <Electronically signed by Channing Donnelly > 12/22/20 [id number]
== END ==
LOC: M RAD 08:08
PROVIDERS: ATTEND Surgery
DX: R10.13 Epigastric pain (principal); Z98.890 Other specified postprocedural states; E13.9 Other specified diabetes mellitus without complications
CPT/HCPCS: 78227; A9537

== ENCOUNTER → 2020-12-25 | Outpatient (CLI) | payer OTHER ==
--- NOTE | 2020-12-25 09:28 | REP ---
INDICATION: M65.30 TRIGGER FINGER. COMPARISON: None. TECHNIQUE: Bilateral hand radiographs, 4 on each side, total of 8 views. FINDINGS: Four views of the right and left hand demonstrate normal bones, joints, and soft tissues. No fracture or subluxation is seen. No opaque foreign body noted. No evidence of arthropathy or erosive change. No soft tissue calcification is seen. IMPRESSION: Negative bilateral hand series. <Electronically signed by Stiven Rae > 12/25/20 [id number]
== END ==
LOC: M ADAMS 09:11
PROVIDERS: ATTEND Family Medicine
DX: M25.541 Pain in joints of right hand (principal); M25.542 Pain in joints of left hand

== ENCOUNTER → 2021-01-09 | Outpatient (CLI) | payer OTHER | LOC: CANPRECLI → M SOG 08:10 | PROVIDERS: ATTEND Orthopaedic Surgery Sports Medicine | DX: Z53.9 Procedure and treatment not carried out, unspecified reason (principal) ==

== ENCOUNTER → 2021-01-22 | Outpatient (REF) | payer OTHER ==
[2021-01-22 18:31] LABS: CREATININE, URINE 29.2 MG/DL; MALB URINE SIEMENS 63.8 MG/L; MAU/CREAT RATIO 218.4 MCG/MG (0.0-30.0)
== END ==
LOC: M SFHCADAM 12:47
PROVIDERS: ATTEND Family Medicine
DX: E11.69 Type 2 diabetes mellitus with other specified complication (principal)

== ENCOUNTER → 2021-02-09 | Outpatient (CLI) | payer OTHER ==
--- NOTE | 2021-02-10 16:24 | SLEEPCENT ---
NOCTURNAL POLYSOMNOGRAPHY CPAP TITRATION DATE: 02/09/2021 ORDERED BY: ROSCOE Hirsch Nocturnal polysomnography was performed for the titration of pressure therapy in this patient with a clinical diagnosis of obstructive sleep apnea syndrome confirmed by home testing, revealing a respiratory event index of 9.7. For testing a ResMed AirFit F20 full face mask of medium size was used, 4 cm of water pressure were applied to the circuit, and the lights were extinguished. 6 hours and 21 minutes of data were reviewed. There were 348.5 minutes of sleep identified. Sleep latency was normal at 9 minutes. REM latency was normal at 68.5 minutes. Sleep architecture was good with three REM cycles. Overall sleep efficiency was 92.8%. The electrocardiogram showed a sinus rhythm with an average heart rate of 80 beats per minute. EEG showed normal waveforms for wake and sleep. Respiratory events were fully palliated with CPAP at a pressure of +6. There was some limb activity with three trains of 30 events, but the limb movement arousal index was only 3.6. IMPRESSION: Obstructive sleep apnea syndrome (G47.33). RECOMMENDATION: Nightly use of pressure therapy 6 cm of water. Dick Jaeger M.D.
== END ==
LOC: M SLEEP 20:00
PROVIDERS: ATTEND Physician Assistant
DX: G47.33 Obstructive sleep apnea (adult) (pediatric) (principal)

== ENCOUNTER → 2021-03-15 | Outpatient (CLI) | payer OTHER ==
[~2021-03-15] MED LIST changes: +ADME100I SC; +ASPI81CH10 PO; +BASA100I SC; +GABA-282 PO; +GABA-283 PO; +LOPI600T PO; +OMEP40CA97 PO
== END ==
LOC: M LABSMTC 08:10
PROVIDERS: ATTEND Anesthesiology
DX: Z01.818 Encounter for other preprocedural examination (principal); Z11.52 Encounter for screening for COVID-19

== ENCOUNTER 2021-03-20 06:47 | Day surgery (SDC) | payer OTHER ==
[~2021-03-20] VITALS: Ht 172.7 cm; Wt 93.6 kg
[~2021-03-20 06:47] MED LIST changes: +NS 1,000 ML IV ONE; +OMEP40CA4 PO; -OMEP40CA97 PO
[2021-03-20] MEDS ORDERED: LIDOCAINE 2% 100MG/5ML SDV (FOR ANES.) As Ordered ONE (07:02)
[2021-03-20] MEDS ORDERED: propofoL 200 MG/20 ML VIAL As Ordered ONE ×2 (07:02→07:41)
[2021-03-20] MEDS ORDERED: fentaNYL 100 MCG/2 ML INJECTION (J3010) As Ordered ONE (07:02)
--- NOTE | 2021-03-20 07:57 | ROOR ---
Patient Name: Satish Nieves Procedure Date: 03/20/2021 7:30 AM Date of : 1975 Age: 45 Room: [facility] Gender: Male Note Status: Finalized Procedure: Upper GI endoscopy Indications: Dyspepsia Providers: Adeel Hager MD Referring MD: Rosa Camacho DO Requesting Provider: Medicines: Monitored Anesthesia Care Complications: No immediate complications. Procedure: Pre-Anesthesia Assessment: - Prior to the procedure, a History and Physical was performed, and patient medications and allergies were reviewed. The patient is competent. The risks and benefits of the procedure and the sedation options and risks were discussed with the patient. All questions were answered and informed consent was obtained. Patient identification and proposed procedure were verified by the physician, the nurse and the anesthesiologist in the procedure room. Mental Status Examination: alert and oriented. Airway Examination: normal oropharyngeal airway and neck mobility. Respiratory Examination: clear to auscultation. CV Examination: normal. Prophylactic Antibiotics: The patient does not require prophylactic antibiotics. Prior Anticoagulants: The patient has taken no previous anticoagulant or antiplatelet agents. ASA Grade Assessment: II - A patient with mild systemic disease. After reviewing the risks and benefits, the patient was deemed in satisfactory condition to undergo the procedure. The anesthesia plan was to use monitored anesthesia care (MAC). Immediately prior to administration of medications, the patient was re-assessed for adequacy to receive sedatives. The heart rate, respiratory rate, oxygen saturations, blood pressure, adequacy of pulmonary ventilation, and response to care were monitored throughout the procedure. The physical status of the patient was re-assessed after the procedure. The Endoscope was introduced through the mouth, and advanced to the second part of duodenum. The upper GI endoscopy was accomplished without difficulty. The patient tolerated the procedure well. Findings: The examined esophagus was normal. The Z-line was regular and was found 42 cm from the incisors. Scattered mild inflammation characterized by erythema and granularity was found in the gastric antrum. Biopsies were taken with a cold forceps for Helicobacter pylori testing. Verification of patient identification for the specimen was done by the physician and nurse using the patient's name, date and medical record number. Estimated blood loss was minimal. The duodenal bulb, second portion of the duodenum and third portion of the duodenum were normal. Biopsies for histology were taken with a cold forceps for evaluation of celiac disease. Impression: - Normal esophagus. - Z-line regular, 42 cm from the incisors. - Gastritis. Biopsied. - Normal duodenal bulb, second portion of the duodenum and third portion of the duodenum. Biopsied. Recommendation: - Patient has a contact number available for emergencies. The signs and symptoms of potential delayed complications were discussed with the patient. Return to normal activities tomorrow. Written discharge instructions were provided to the patient. - High fiber diet. - Continue present medications. - Await pathology results. - Telephone GI clinic for pathology results in 2 weeks. - Return to primary care physician. Procedure Code(s): --- Professional --- 82888, Esophagogastroduodenoscopy, flexible, transoral; with biopsy, single or multiple Diagnosis Code(s): --- Professional --- K29.70, Gastritis, unspecified, without bleeding R10.13, Epigastric pain CPT copyright 2019 [employer]. All rights reserved. The codes documented in this report are preliminary and upon outpatient therapist review may be revised to meet current compliance requirements. Adeel Hager MD Adeel Hager MD 03/20/2021 7:56:56 AM Electronically signed by Adeel Hager MD Number of Addenda: 0 Note Initiated On: 03/20/2021 7:30 AM Estimated Blood Loss: Estimated blood loss was minimal.
[2021-03-20 08:12] VITALS: BP 116/72
== END 2021-03-20 08:14 | disposition home or self-care (01) ==
LOC: M OPP 06:47
PROVIDERS: ATTEND Internal Medicine Gastroenterology
DX: K29.70 Gastritis, unspecified, without bleeding (principal); R10.13 Epigastric pain; E11.9 Type 2 diabetes mellitus without complications; G47.30 Sleep apnea, unspecified; Z79.4 Long term (current) use of insulin; Z79.82 Long term (current) use of aspirin; Z79.899 Other long term (current) drug therapy; Z87.891 Personal history of nicotine dependence
CPT/HCPCS: 43239; 88305; J3010

== ENCOUNTER → 2021-05-19 | Outpatient (CLI) | payer OTHER ==
[~2021-05-19] MED LIST changes: -NS 1,000 ML IV ONE
== END ==
LOC: M RAD 08:34
PROVIDERS: ATTEND Internal Medicine Gastroenterology
DX: K86.3 Pseudocyst of pancreas (principal); R10.13 Epigastric pain

== ENCOUNTER → 2021-06-11 | Outpatient (CLI) | payer OTHER ==
[2021-06-11 10:14] LABS: CHOLESTEROL RISK RATIO 6.833 (<5)
== END ==
LOC: M LAB 08:13
PROVIDERS: ATTEND Internal Medicine Cardiovascular Disease
DX: E78.2 Mixed hyperlipidemia (principal)

== ENCOUNTER → 2021-06-11 | Outpatient (CLI) | payer OTHER ==
[2021-06-11 10:17] LABS: ALBUMIN 3.7 GM/DL (3.2-5.2); ALT/SGPT 40 U/L (12-78); BILIRUBIN,TOTAL 0.3 MG/DL (0.2-1.0); BLOOD UREA NITROGEN 24 MG/DL (7-18); CALCIUM LEVEL 9.5 MG/DL (8.5-10.1); CARBON DIOXIDE LEVEL 28 MEQ/L (21-32); CHLORIDE LEVEL 108 MEQ/L (98-107); CHOLESTEROL LEVEL 239 MG/DL (<200); CHOLESTEROL RISK RATIO 6.828 (<5); CREATININE FOR GFR 1.05 MG/DL (0.70-1.30); GLOMERULAR FILTRATION RATE > 60.0 (>60); GLUCOSE, FASTING 221 MG/DL (70-100); HDL CHOLESTEROL 35 MG/DL (>40); LDL CHOLESTEROL 138 MG/DL (<100); NON-HDL-C 204 MG/DL; POTASSIUM SERUM 4.5 MEQ/L (3.5-5.1); SODIUM LEVEL 139 MEQ/L (136-145); TOTAL PROTEIN 7.6 GM/DL (6.4-8.2); TRIGLYCERIDES LEVEL 328 MG/DL (<150)
[2021-06-11 11:13] LABS: HEMOGLOBIN A1c 9.1 %
== END ==
LOC: M LAB 08:17
PROVIDERS: ATTEND Physician Assistant
DX: E11.65 Type 2 diabetes mellitus with hyperglycemia (principal)

== ENCOUNTER → 2021-08-03 | Outpatient (CLI) | payer OTHER ==
--- NOTE | 2021-08-03 16:20 | REP ---
INDICATION: FOOT PAIN, LEFT. COMPARISON: None. TECHNIQUE: Four views FINDINGS: The joint spaces are symmetric and relatively well maintained. There is no evidence of acute fracture or destructive osseous lesion. There is a tiny retrocalcaneal heel spur IMPRESSION: No acute osseous abnormality <Electronically signed by Shant Devi > 08/03/21 [id number]
== END ==
LOC: M ADAMS 15:44
PROVIDERS: ATTEND Family Medicine
DX: M79.672 Pain in left foot (principal)

== ENCOUNTER → 2021-08-03 | Outpatient (REF) | payer OTHER ==
[2021-08-03 19:40] LABS: ALBUMIN 3.7 GM/DL (3.2-5.2); ALT/SGPT 50 U/L (12-78); BILIRUBIN,TOTAL 0.3 MG/DL (0.2-1.0); BLOOD UREA NITROGEN 23 MG/DL (7-18); C REACTIVE PROTEIN QUANTITATIV 0.34 MG/DL (0.00-0.30); CALCIUM LEVEL 9.5 MG/DL (8.5-10.1); CARBON DIOXIDE LEVEL 27 MEQ/L (21-32); CHLORIDE LEVEL 103 MEQ/L (98-107); CREATININE FOR GFR 1.28 MG/DL (0.70-1.30); GLOMERULAR FILTRATION RATE > 60.0 (>60); GLUCOSE, FASTING 320 MG/DL (70-100); POTASSIUM SERUM 5.2 MEQ/L (3.5-5.1); SODIUM LEVEL 133 MEQ/L (136-145); TOTAL PROTEIN 7.8 GM/DL (6.4-8.2)
== END ==
LOC: M SFHCADAM 15:43
PROVIDERS: ATTEND Family Medicine
DX: M79.672 Pain in left foot (principal)

== ENCOUNTER → 2021-09-17 | Outpatient (REF) | payer OTHER | LOC: M SFHCADAM 17:15 | PROVIDERS: ATTEND Physician Assistant | DX: J06.9 Acute upper respiratory infection, unspecified (principal) ==

== ENCOUNTER → 2021-12-23 | Outpatient (REF) | payer OTHER ==
[~2021-12-23] MED LIST changes: -LISI-898 PO; +LISI5TAB11 PO
== END ==
LOC: M SFHCPLAZ 16:45
PROVIDERS: ATTEND Physician Assistant
DX: R05.9 Cough, unspecified (principal)

== ENCOUNTER → 2022-02-15 | Outpatient (REF) | payer OTHER ==
[2022-02-16 14:09] LABS: APPEARANCE, URINE CLEAR (CLEAR); BACTERIA, URINE AUTO NEGATIVE (NEGATIVE); BILIRUBIN, URINE AUTO NEGATIVE (NEGATIVE); BLOOD, URINE BLOOD NEGATIVE (NEGATIVE); COLOR, URINE YELLOW (YELLOW); GLUCOSE, URINE (UA) AUTO 3+ mg/dL (NEGATIVE); KETONE, URINE AUTO NEGATIVE (NEGATIVE); LEUKOCYTE ESTERASE, URINE AUTO NEGATIVE (NEGATIVE); MUCUS, URINE SMALL (NEGATIVE); NITRITE, URINE AUTO NEGATIVE (NEGATIVE); PROTEIN, URINE AUTO NEGATIVE (NEGATIVE); RBC, URINE AUTO 0 /HPF (0-3); SPECIFIC GRAVITY URINE AUTO 1.022 (1.002-1.035); SQUAMOUS EPITHELIAL CELL UR AU 2 /HPF (0-6); UROBILINOGEN, URINE AUTO 0.2 mg/dL (0.0-2.0); WBC, URINE AUTO 1 /HPF (0-3)
== END ==
LOC: M SFHCADAM 12:29
PROVIDERS: ATTEND Family Medicine
DX: R31.0 Gross hematuria (principal)

== ENCOUNTER → 2022-03-18 | Outpatient (REF) | payer OTHER ==
[2022-03-18 17:42] LABS: APPEARANCE, URINE CLEAR (CLEAR); BACTERIA, URINE AUTO NEGATIVE (NEGATIVE); BILIRUBIN, URINE AUTO NEGATIVE (NEGATIVE); BLOOD, URINE BLOOD NEGATIVE (NEGATIVE); COLOR, URINE YELLOW (YELLOW); GLUCOSE, URINE (UA) AUTO 3+ mg/dL (NEGATIVE); KETONE, URINE AUTO TRACE mg/dL (NEGATIVE); LEUKOCYTE ESTERASE, URINE AUTO NEGATIVE (NEGATIVE); NITRITE, URINE AUTO NEGATIVE (NEGATIVE); PROTEIN, URINE AUTO NEGATIVE (NEGATIVE); RBC, URINE AUTO 0 /HPF (0-3); SPECIFIC GRAVITY URINE AUTO 1.032 (1.002-1.035); SQUAMOUS EPITHELIAL CELL UR AU 0 /HPF (0-6); UROBILINOGEN, URINE AUTO 0.2 mg/dL (0.0-2.0); WBC, URINE AUTO 0 /HPF (0-3)
== END ==
LOC: M SMT 16:58
PROVIDERS: ATTEND Nurse Practitioner Women's Health
DX: R31.0 Gross hematuria (principal)

== ENCOUNTER 2022-03-24 11:06 | Inpatient (IN) | payer OTHER ==
[~2022-03-24] VITALS: Ht 172.7 cm; Wt 91.2 kg
[2022-03-24] MEDS ORDERED: CIPR500T39 PO (11:40)
[2022-03-24] MEDS ORDERED: LISI40TA4 PO (11:40)
[2022-03-24 12:18] LABS: HEMATOCRIT 41.9 % (42.0-52.0); HEMOGLOBIN 14.5 g/dl (13.5-17.5); MEAN CORPUSCULAR HEMOGLOBIN 30.7 pg (27.0-33.0); MEAN CORPUSCULAR HGB CONC 34.6 g/dl (32.0-36.5); MEAN CORPUSCULAR VOLUME 88.6 fl (80.0-96.0); PLATELET COUNT, AUTOMATED 314 10^3/uL (150-450); RED BLOOD COUNT 4.73 10^6/uL (4.30-6.10); WHITE BLOOD COUNT 11.2 10^3/uL (4.0-10.0)
[2022-03-24] MEDS ORDERED: ONDANSETRON 4MG/2ML VIAL IV ONE (12:20)
[2022-03-24] MEDS ORDERED: NS 1,000 ML IV ONE ×2 (12:20→15:25)
[2022-03-24] MEDS ORDERED: MORPHINE 4 MG/ML 1ML VIAL/SYRINGE IV ONE ×2 (12:20→15:15)
[2022-03-24 12:36] LABS: ALBUMIN 3.7 GM/DL (3.2-5.2); BILIRUBIN,DIRECT 0.1 MG/DL (0.0-0.2); BILIRUBIN,TOTAL 0.7 MG/DL (0.2-1.0); TOTAL PROTEIN 7.5 GM/DL (6.4-8.2)
[2022-03-24] MEDS: GASTROGRAFIN SOLUTION 30ML PO SCH ×2 (12:53→13:39)
[2022-03-24 12:59] LABS: EOSINOPHILS 1 % (0-3); LYMPHOCYTES 28 % (16-44); MONOCYTES 2 % (0-5); NEUTROPHILS 69 % (28-66)
[2022-03-24 13:00] LABS: PLATELET ESTIMATE NORMAL (NORMAL)
[2022-03-24] MEDS ORDERED: ISOVUE-370 76% 100ML VIAL As Ordered ONE (14:19)
[2022-03-24 14:35] LABS: RSV AMPLIFICATION NEGATIVE (NEGATIVE)
[2022-03-24] MEDS ORDERED: DEXTROSE 50% 50 ML SYRINGE IV PRN (15:25)
[2022-03-24] MEDS ORDERED: GLUCOSE 4GM CHEW TABLET PO PRN (15:25)
[2022-03-24] MEDS ORDERED: PANTOPRAZOLE 40MG VIAL IV ONE (15:25)
[2022-03-24] MEDS ORDERED: GLUCAGON INJ 1MG VIAL SC PRN (15:25)
[2022-03-24] MEDS ORDERED: HYDROMORPHONE HCL 0.5 MG/ 0.5 ML SYRINGE (J1170 PER 1) IV ONE (15:25)
[2022-03-24] MEDS ORDERED: LEVEMIR (INSULIN DETEMIR) 1 UNITS/0.01ML SC ONE (15:25)
[2022-03-24] MEDS ORDERED: NS 0.45% 1,000 ML IV SCH (15:30)
[2022-03-24] MEDS ORDERED: GABA-282 PO (15:40)
[2022-03-24] MEDS ORDERED: SILD50TA2 PO (16:24)
[2022-03-24] MEDS ORDERED: NITR0.4S14 SL (16:24)
[2022-03-24] MEDS ORDERED: FENO145T7 PO (16:24)
[2022-03-24] MEDS ORDERED: FLUTISP NARES (16:24)
[2022-03-24] MEDS ORDERED: ROSU40TA4 PO (16:24)
[2022-03-24] MEDS ORDERED: HOME MED LIST COMPLETE! XX SCH (16:25)
[2022-03-24] MEDS ORDERED: CIPROFLOXACIN 400 MG in IV 1 EA IV SCH (17:00)
[2022-03-24 17:12] LABS: CK-MB VALUE MASS 2.4 NG/ML (<3.6); MB/CK RELATIVE INDEX 2.67 (< OR =4)
[2022-03-24 17:21] LABS: HEMOGLOBIN A1c 11.4 %
[2022-03-24] MEDS: INSULIN LISPRO (NovoLOG) PER UNIT SC SCH (18:00)
[2022-03-24] MEDS: NITROGLYCERIN 2% OINT 1 GM *U/D* PKT TOP SCH (18:00)
[2022-03-24 18:40] VITALS: BP 140/80
[2022-03-24] MEDS: KETOROLAC 30 MG/ML 1ML VIAL IV SCH ×2 (18:54→21:26)
[2022-03-24] MEDS: LEVEMIR (INSULIN DETEMIR) 1 UNITS/0.01ML SC SCH (19:56)
[2022-03-24] MEDS: PERCOCET 5MG/325MG TAB PO SCH (19:56)
[2022-03-24] MEDS: ONDANSETRON 4MG/2ML VIAL IV PRN (20:29)
[2022-03-24] MEDS: CIPROFLOXACIN 400 MG in IV 1 EA IV SCH (21:25)
[2022-03-24] MEDS: NS 0.45% 1,000 ML IV SCH (21:26)
[2022-03-24 22:00] VITALS: BP 124/84
[2022-03-25] VITALS: BP 125/81
[2022-03-25] MEDS: INSULIN LISPRO (NovoLOG) PER UNIT SC SCH ×4 (00:13→18:41)
[2022-03-25] MEDS: PERCOCET 5MG/325MG TAB PO SCH ×4 (02:26→20:00)
[2022-03-25] MEDS: NS 0.45% 1,000 ML IV SCH ×2 (02:26→07:24)
[2022-03-25] MEDS: PANTOPRAZOLE 40MG VIAL IV SCH ×2 (04:37→16:38)
[2022-03-25] MEDS: KETOROLAC 30 MG/ML 1ML VIAL IV SCH ×4 (04:37→21:44)
[2022-03-25 05:55] LABS: BASO # 0.1 10^3/uL (0.0-0.2); BASO % 0.8 % (0.0-1.0); EOS # 0.3 10^3/uL (0.0-0.5); EOS % 2.1 % (0.0-3.0); HEMATOCRIT 37.8 % (42.0-52.0); HEMOGLOBIN 12.7 g/dl (13.5-17.5); LYMPH # 4.7 10^3/uL (1.5-5.0); LYMPH % 39.6 % (24.0-44.0); MEAN CORPUSCULAR HEMOGLOBIN 30.8 pg (27.0-33.0); MEAN CORPUSCULAR HGB CONC 33.6 g/dl (32.0-36.5); MEAN CORPUSCULAR VOLUME 91.7 fl (80.0-96.0); MONO # 1.2 10^3/uL (0.0-0.8); MONO % 10.1 % (2.0-8.0); NEUTROPHILS # 5.6 10^3/uL (1.5-8.5); NEUTROPHILS % 47.1 % (36.0-66.0); PLATELET COUNT, AUTOMATED 285 10^3/uL (150-450); RED BLOOD COUNT 4.12 10^6/uL (4.30-6.10); WHITE BLOOD COUNT 11.8 10^3/uL (4.0-10.0)
[2022-03-25 06:00] VITALS: BP 116/73
[2022-03-25] MEDS: NITROGLYCERIN 2% OINT 1 GM *U/D* PKT TOP SCH ×5 (06:00→23:46)
[2022-03-25 06:32] LABS: BLOOD UREA NITROGEN 21 MG/DL (7-18); CARBON DIOXIDE LEVEL 29 MEQ/L (21-32); CHLORIDE LEVEL 107 MEQ/L (98-107); CREATININE FOR GFR 1.11 MG/DL (0.70-1.30); GLOMERULAR FILTRATION RATE > 60.0 (>60); GLUCOSE, FASTING 107 MG/DL (70-100); POTASSIUM SERUM 4.7 MEQ/L (3.5-5.1); SODIUM LEVEL 140 MEQ/L (136-145)
[2022-03-25 06:33] LABS: ALBUMIN 2.9 GM/DL (3.2-5.2); ALT/SGPT 23 U/L (12-78); BILIRUBIN,TOTAL 0.8 MG/DL (0.2-1.0); CALCIUM LEVEL 7.7 MG/DL (8.5-10.1); LIPASE 110 U/L (73-393); MAGNESIUM LEVEL 2.2 MG/DL (1.8-2.4); TOTAL PROTEIN 5.8 GM/DL (6.4-8.2)
[2022-03-25] MEDS: ONDANSETRON 4MG/2ML VIAL IV PRN (07:30)
[2022-03-25] MEDS: CIPROFLOXACIN 400 MG in IV 1 EA IV SCH ×2 (10:12→21:43)
[2022-03-25 14:00] VITALS: BP 129/81
[2022-03-25] MEDS ORDERED: INSULIN LISPRO (NovoLOG) PER UNIT SC SCH (21:00)
[2022-03-25] MEDS: LEVEMIR (INSULIN DETEMIR) 1 UNITS/0.01ML SC SCH (21:43)
[2022-03-25 22:00] VITALS: BP 127/79
[2022-03-26] MEDS: PERCOCET 5MG/325MG TAB PO SCH ×2 (01:41→08:45)
[2022-03-26] MEDS: PANTOPRAZOLE 40MG VIAL IV SCH (04:48)
[2022-03-26] MEDS: KETOROLAC 30 MG/ML 1ML VIAL IV SCH ×2 (04:52→08:44)
[2022-03-26 06:00] VITALS: BP 134/79
[2022-03-26] MEDS: NITROGLYCERIN 2% OINT 1 GM *U/D* PKT TOP SCH (06:00)
[2022-03-26] MEDS ORDERED: SUCRALFATE 1 GM TAB PO SCH (06:00)
[2022-03-26] MEDS ORDERED: NS 1,000 ML IV SCH (06:45)
[2022-03-26] MEDS ORDERED: FLUTICASONE PROP 0.05% NASAL SPRAY 16 GM (FLONASE) NARES PRN (06:45)
[2022-03-26] MEDS ORDERED: GI COCKTAIL 50ML BTL(HYOSCYAMINE/MAALOX/LIDOCAINE VISCOUS)(1:3:1) PO PRN (06:45)
[2022-03-26] MEDS ORDERED: OMEPRAZOLE 20MG CAP PO PRN (06:45)
[2022-03-26] MEDS ORDERED: GABAPENTIN 300 MG CAP PO PRN (06:45)
[2022-03-26 06:46] LABS: BASO # 0.1 10^3/uL (0.0-0.2); BASO % 0.6 % (0.0-1.0); EOS # 0.2 10^3/uL (0.0-0.5); EOS % 1.3 % (0.0-3.0); HEMATOCRIT 38.8 % (42.0-52.0); HEMOGLOBIN 12.9 g/dl (13.5-17.5); LYMPH # 2.5 10^3/uL (1.5-5.0); MEAN CORPUSCULAR HEMOGLOBIN 30.1 pg (27.0-33.0); MEAN CORPUSCULAR HGB CONC 33.2 g/dl (32.0-36.5); MEAN CORPUSCULAR VOLUME 90.4 fl (80.0-96.0); MONO # 1.4 10^3/uL (0.0-0.8); MONO % 9.9 % (2.0-8.0); NEUTROPHILS # 9.9 10^3/uL (1.5-8.5); NEUTROPHILS % 69.6 % (36.0-66.0); PLATELET COUNT, AUTOMATED 292 10^3/uL (150-450); RED BLOOD COUNT 4.29 10^6/uL (4.30-6.10); WHITE BLOOD COUNT 14.2 10^3/uL (4.0-10.0)
[2022-03-26 07:17] LABS: ALT/SGPT 24 U/L (12-78); BILIRUBIN,TOTAL 0.3 MG/DL (0.2-1.0); BLOOD UREA NITROGEN 16 MG/DL (7-18); CALCIUM LEVEL 8.4 MG/DL (8.5-10.1); CARBON DIOXIDE LEVEL 27 MEQ/L (21-32); CHLORIDE LEVEL 109 MEQ/L (98-107); CREATININE FOR GFR 1.21 MG/DL (0.70-1.30); GLOMERULAR FILTRATION RATE > 60.0 (>60); GLUCOSE, FASTING 274 MG/DL (70-100); LIPASE 162 U/L (73-393); MAGNESIUM LEVEL 2.1 MG/DL (1.8-2.4); POTASSIUM SERUM 4.3 MEQ/L (3.5-5.1); SODIUM LEVEL 142 MEQ/L (136-145)
[2022-03-26] MEDS ORDERED: INSULIN LISPRO (NovoLOG) PER UNIT SC SCH (07:30)
[2022-03-26] MEDS: CIPROFLOXACIN 400 MG in IV 1 EA IV SCH (08:41)
[2022-03-26] MEDS ORDERED: GABAPENTIN 300 MG CAP PO SCH (09:00)
[2022-03-26] MEDS ORDERED: metroNIDAZOLE (FLAGYL) 500MG TABLET PO SCH (09:00)
[2022-03-26] MEDS ORDERED: ASPIRIN 81 MG CHEW TABLET PO SCH (09:00)
[2022-03-26] MEDS ORDERED: ROSUVASTATIN 10 MG TAB (CRESTOR) PO SCH (09:00)
[2022-03-26] MEDS ORDERED: MULTIVITAMINS/MINERALS THERAP 1 TAB PO SCH (09:00)
[2022-03-26] MEDS ORDERED: FENOFIBRATE 145MG TABLET (TRICOR) PO SCH (09:00)
[2022-03-26] MEDS ORDERED: ATORVASTATIN 20 MG TAB PO SCH (09:00)
[2022-03-26] MEDS ORDERED: PROT1TAB2 PO (10:38)
[2022-03-26] MEDS ORDERED: SUCR1TA PO (10:38)
[2022-03-26] MEDS ORDERED: PERCOCET PO (10:38)
[2022-03-26] MEDS ORDERED: BACITAB PO (10:53)
[2022-03-26] MEDS ORDERED: CIPR-249 PO (10:53)
[2022-03-26] MEDS ORDERED: METR-265 PO (10:53)
[2022-03-26] MEDS ORDERED: GABAPENTIN 400MG CAP PO SCH (21:00)
== END 2022-03-26 11:46 | disposition home or self-care (01) | DRG 282 ==
LOC: M ED 11:06 → M ED INP 15:20 → ENRESERV 16:49 → M MS5PR 18:39
PROVIDERS: ADMIT General Practice; ATTEND General Practice
DX: K85.90 Acute pancreatitis without necrosis or infection, unspecified (principal); I50.32 Chronic diastolic (congestive) heart failure; E11.9 Type 2 diabetes mellitus without complications; I16.0 Hypertensive urgency; I35.8 Other nonrheumatic aortic valve disorders; K29.80 Duodenitis without bleeding; E78.5 Hyperlipidemia, unspecified; E78.1 Pure hyperglyceridemia; Z79.4 Long term (current) use of insulin; Z90.49 Acquired absence of other specified parts of digestive tract; Z90.5 Acquired absence of kidney; Z79.82 Long term (current) use of aspirin; Z90.81 Acquired absence of spleen; Z79.899 Other long term (current) drug therapy; Z87.891 Personal history of nicotine dependence

== ENCOUNTER → 2022-09-07 | Outpatient (REF) | payer OTHER ==
[~2022-09-07] MED LIST changes: +BACITAB PO; +CIPR-249 PO; +CIPR500T39 PO; +FENO145T7 PO; +FLUTISP NARES; +LISI40TA4 PO; +METR-265 PO; +NITR0.4S14 SL; +PERCOCET PO; +ROSU40TA4 PO; +SILD50TA2 PO; +SUCR1TA PO
== END ==
LOC: M SFHCADAM 13:10
PROVIDERS: ATTEND Family Medicine
DX: R05.1 Acute cough (principal)

== ENCOUNTER → 2022-10-05 | Outpatient (REF) | payer OTHER ==
[2022-10-05 13:39] LABS: ALBUMIN 3.7 G/DL (3.2-5.2); ALKALINE PHOSPHATASE 64 U/L (46-116); ALT/SGPT 20 U/L (7.0-40); AST/SGOT 21 U/L (<34); BILIRUBIN,TOTAL 0.5 MG/DL (0.3-1.2); BLOOD UREA NITROGEN 17 MG/DL (9-23); CALCIUM LEVEL 9.6 MG/DL (8.5-10.1); CARBON DIOXIDE LEVEL 29 MMOL/L (20-31); CHLORIDE LEVEL 100 MMOL/L (98-107); CREATININE FOR GFR 0.96 MG/DL (0.70-1.30); GLOMERULAR FILTRATION RATE > 60.0 (>60); GLUCOSE, FASTING 201 MG/DL (60-100); SODIUM LEVEL 135 MMOL/L (136-145); TOTAL PROTEIN 7.3 G/DL (5.7-8.2)
[2022-10-05 13:40] LABS: FREE T4 1.08 NG/DL (0.89-1.76)
[2022-10-05 13:50] LABS: HEMOGLOBIN A1c 12.8 % (4.0-6.0)
== END ==
LOC: M SFHCADAM 09:50
PROVIDERS: ATTEND Family Medicine
DX: E11.69 Type 2 diabetes mellitus with other specified complication (principal); R05.1 Acute cough; F32.A Depression, unspecified

== ENCOUNTER → 2022-10-12 | Outpatient (CLI) | payer OTHER | LOC: M ADAMS 10:47 | PROVIDERS: ATTEND Family Medicine | DX: M54.50 Low back pain, unspecified (principal) ==

== ENCOUNTER → 2022-10-12 | Outpatient (REF) | payer OTHER ==
[2022-10-12 18:18] LABS: BLOOD UREA NITROGEN 14 MG/DL (9-23); CALCIUM LEVEL 9.2 MG/DL (8.5-10.1); CARBON DIOXIDE LEVEL 27 MMOL/L (20-31); CHLORIDE LEVEL 101 MMOL/L (98-107); CREATININE FOR GFR 0.93 MG/DL (0.70-1.30); GLOMERULAR FILTRATION RATE > 60.0 (>60); GLUCOSE, FASTING 205 MG/DL (60-100); POTASSIUM SERUM 5.5 MMOL/L (3.5-5.1); SODIUM LEVEL 136 MMOL/L (136-145)
== END ==
LOC: M SFHCADAM 10:40
PROVIDERS: ATTEND Family Medicine
DX: E87.5 Hyperkalemia (principal)

== ENCOUNTER → 2022-12-24 | Outpatient (CLI) | payer OTHER | LOC: M ADAMS 10:24 | PROVIDERS: ATTEND Physician Assistant | DX: E11.65 Type 2 diabetes mellitus with hyperglycemia (principal) ==

== ENCOUNTER → 2022-12-24 | Outpatient (REF) | payer OTHER ==
[2022-12-24 14:19] LABS: BASO # 0.2 10^3/uL (0.0-0.2); BASO % 1.4 % (0.0-1.0); EOS # 0.4 10^3/uL (0.0-0.5); EOS % 3.4 % (0.0-3.0); HEMATOCRIT 38.9 % (42.0-52.0); HEMOGLOBIN 13.4 g/dl (13.5-17.5); LYMPH % 42.4 % (24.0-44.0); MEAN CORPUSCULAR HGB CONC 34.4 g/dl (32.0-36.5); MEAN CORPUSCULAR VOLUME 92.8 fl (80.0-96.0); MONO # 1.2 10^3/uL (0.0-0.8); MONO % 10.1 % (2.0-8.0); NEUTROPHILS # 4.9 10^3/uL (1.5-8.5); NEUTROPHILS % 42.1 % (36.0-66.0); PLATELET COUNT, AUTOMATED 290 10^3/uL (150-450); RED BLOOD COUNT 4.19 10^6/uL (4.30-6.10); WHITE BLOOD COUNT 11.7 10^3/uL (4.0-10.0)
[2022-12-24 14:44] LABS: LIPASE 40 U/L (12-53)
[2022-12-24 14:46] LABS: AMYLASE 61 U/L (30-118)
[2022-12-24 14:50] LABS: ALBUMIN 3.8 G/DL (3.2-5.2); ALKALINE PHOSPHATASE 62 U/L (46-116); ALT/SGPT 26 U/L (7.0-40); AST/SGOT 19 U/L (<34); BILIRUBIN,TOTAL 0.5 MG/DL (0.3-1.2); BLOOD UREA NITROGEN 20 MG/DL (9-23); CALCIUM LEVEL 9.7 MG/DL (8.5-10.1); CARBON DIOXIDE LEVEL 28 MMOL/L (20-31); CHLORIDE LEVEL 101 MMOL/L (98-107); CREATININE FOR GFR 1.21 MG/DL (0.70-1.30); FREE T4 1.07 NG/DL (0.89-1.76); GLOMERULAR FILTRATION RATE > 60.0 (>60); GLUCOSE, FASTING 199 MG/DL (60-100); POTASSIUM SERUM 5.8 MMOL/L (3.5-5.1); SODIUM LEVEL 134 MMOL/L (136-145); THYROID STIMULATING HORMONE 1.526 uIU/ML (0.55-4.78); TOTAL PROTEIN 7.2 G/DL (5.7-8.2); VITAMIN B12 LEVEL 216 PG/ML (211-911)
[2022-12-24 14:55] LABS: FOLATE 16.6 NG/ML (>5.4)
== END ==
LOC: M SFHCADAM 10:07
PROVIDERS: ATTEND Physician Assistant
DX: E11.65 Type 2 diabetes mellitus with hyperglycemia (principal); K85.90 Acute pancreatitis without necrosis or infection, unspecified; M54.2 Cervicalgia

== ENCOUNTER → 2023-01-21 | Outpatient (REF) | payer OTHER ==
[~2023-01-21] MED LIST changes: +FLUT50SP17 NARES; -FLUTISP NARES
[2023-01-21 13:44] LABS: BASO # 0.1 10^3/uL (0.0-0.2); BASO % 1.4 % (0.0-1.0); EOS # 0.3 10^3/uL (0.0-0.5); EOS % 2.7 % (0.0-3.0); HEMATOCRIT 43.4 % (42.0-52.0); HEMOGLOBIN 14.3 g/dl (13.5-17.5); LYMPH % 39.5 % (24.0-44.0); MEAN CORPUSCULAR HEMOGLOBIN 31.3 pg (27.0-33.0); MEAN CORPUSCULAR HGB CONC 32.9 g/dl (32.0-36.5); MONO % 9.7 % (2.0-8.0); NEUTROPHILS # 4.7 10^3/uL (1.5-8.5); NEUTROPHILS % 46.1 % (36.0-66.0); PLATELET COUNT, AUTOMATED 332 10^3/uL (150-450); RED BLOOD COUNT 4.57 10^6/uL (4.30-6.10); WHITE BLOOD COUNT 10.1 10^3/uL (4.0-10.0)
[2023-01-21 13:59] LABS: ERYTHROCYTE SEDIMENTATION RATE 12 mm/hr (0-15)
[2023-01-21 14:10] LABS: LIPASE 49 U/L (12-53)
[2023-01-21 14:11] LABS: AMYLASE 66 U/L (30-118)
[2023-01-21 14:12] LABS: ALBUMIN 4.1 G/DL (3.2-5.2); ALKALINE PHOSPHATASE 61 U/L (46-116); ALT/SGPT 31 U/L (7.0-40); AST/SGOT 20 U/L (<34); BILIRUBIN,TOTAL 0.3 MG/DL (0.3-1.2); BLOOD UREA NITROGEN 22 MG/DL (9-23); CALCIUM LEVEL 9.5 MG/DL (8.5-10.1); CARBON DIOXIDE LEVEL 28 MMOL/L (20-31); CHLORIDE LEVEL 100 MMOL/L (98-107); GLOMERULAR FILTRATION RATE > 60.0 (>60); GLUCOSE, FASTING 245 MG/DL (60-100); POTASSIUM SERUM 5.4 MMOL/L (3.5-5.1); SODIUM LEVEL 133 MMOL/L (136-145); TOTAL PROTEIN 7.7 G/DL (5.7-8.2)
== END ==
LOC: M SFHCADAM 08:54
PROVIDERS: ATTEND Family Medicine
DX: R10.10 Upper abdominal pain, unspecified (principal); K86.1 Other chronic pancreatitis

== ENCOUNTER → 2023-01-25 | Outpatient (CLI) | payer OTHER ==
[~2023-01-25] MED LIST changes: +GASTROGRAFIN SOLUTION 30ML As Ordered ONE; +ISOVUE-370 76% 100ML VIAL As Ordered ONE
== END ==
LOC: M RAD 11:25
PROVIDERS: ATTEND Family Medicine
DX: R10.11 Right upper quadrant pain (principal)
CPT/HCPCS: 74177; Q9963; Q9967

== ENCOUNTER → 2023-02-08 | Outpatient (CLI) | payer OTHER ==
[~2023-02-08] MED LIST changes: -GASTROGRAFIN SOLUTION 30ML As Ordered ONE; -ISOVUE-370 76% 100ML VIAL As Ordered ONE
[2023-02-08 13:24] LABS: HEMOGLOBIN A1c 11.5 % (4.0-6.0)
[2023-02-08 13:27] LABS: FOLATE > 24.0 NG/ML (>5.4); VITAMIN B12 LEVEL 420 PG/ML (211-911)
[2023-02-08 13:30] LABS: BLOOD UREA NITROGEN 23 MG/DL (9-23); CALCIUM LEVEL 9.8 MG/DL (8.5-10.1); CARBON DIOXIDE LEVEL 28 MMOL/L (20-31); CHLORIDE LEVEL 100 MMOL/L (98-107); CHOLESTEROL LEVEL 208 MG/DL (<200); CHOLESTEROL RISK RATIO 7.53 (<5); CREATININE FOR GFR 1.13 MG/DL (0.70-1.30); GLOMERULAR FILTRATION RATE > 60.0 (>60); GLUCOSE, FASTING 441 MG/DL (60-100); HDL CHOLESTEROL 27.6 MG/DL (>40); NON-HDL-C 180.4 MG/DL; POTASSIUM SERUM 5.7 MMOL/L (3.5-5.1); SODIUM LEVEL 130 MMOL/L (136-145); TRIGLYCERIDES LEVEL 608 MG/DL (<150)
== END ==
LOC: M LABDRWAD 10:10
PROVIDERS: ATTEND Psychiatry & Neurology Neurology
DX: E11.69 Type 2 diabetes mellitus with other specified complication (principal); K86.9 Disease of pancreas, unspecified

== ENCOUNTER → 2023-10-27 | Outpatient (CLI) | payer OTHER ==
[~2023-10-27] MED LIST changes: -FLUT50SP17 NARES; +FLUTISP NARES; -GABA-283 PO; +GABA-284 PO
== END ==
LOC: M ADAMS 09:22
PROVIDERS: ATTEND Psychiatry & Neurology Neurology
DX: M25.511 Pain in right shoulder (principal)

== ENCOUNTER 2023-12-13 12:22 | Emergency (ER) | payer OTHER ==
[~2023-12-13] VITALS: Ht 172.7 cm; Wt 93.6 kg
[2023-12-13] MEDS: ONDANSETRON 4MG 2ML VIAL IV ONE (13:01)
[2023-12-13] MEDS: MORPHINE 4 MG/ML 1ML VIAL IV ONE (13:01)
[2023-12-13] MEDS: NS 1,000 ML IV ONE ×2 (13:02→15:00)
[2023-12-13 13:16] LABS: BASO # 0.1 10^3/uL (0.0-0.2); BASO % 0.8 % (0.0-1.0); EOS # 0.4 10^3/uL (0.0-0.5); EOS % 2.8 % (0.0-3.0); HEMATOCRIT 41.2 % (42.0-52.0); HEMOGLOBIN 14.3 g/dl (13.5-17.5); LYMPH % 38.5 % (24.0-44.0); MEAN CORPUSCULAR HEMOGLOBIN 31.4 pg (27.0-33.0); MEAN CORPUSCULAR HGB CONC 34.7 g/dl (32.0-36.5); MEAN CORPUSCULAR VOLUME 90.5 fl (80.0-96.0); MONO # 1.3 10^3/uL (0.0-0.8); MONO % 9.6 % (2.0-8.0); NEUTROPHILS # 6.3 10^3/uL (1.5-8.5); PLATELET COUNT, AUTOMATED 346 10^3/uL (150-450); RED BLOOD COUNT 4.55 10^6/uL (4.30-6.10); WHITE BLOOD COUNT 13.1 10^3/uL (4.0-10.0)
[2023-12-13 13:43] LABS: LIPASE 38 U/L (12-53)
[2023-12-13 13:45] LABS: ALBUMIN 4.1 G/DL (3.2-5.2); ALKALINE PHOSPHATASE 47 U/L (46-116); ALT/SGPT 21 U/L (7.0-40); AST/SGOT 23 U/L (<34); BILIRUBIN,DIRECT 0.1 MG/DL (<0.4); BILIRUBIN,TOTAL 0.4 MG/DL (0.3-1.2); BLOOD UREA NITROGEN 31 MG/DL (9-23); CALCIUM LEVEL 9.3 MG/DL (8.5-10.1); CARBON DIOXIDE LEVEL 27 MMOL/L (20-31); CHLORIDE LEVEL 102 MMOL/L (98-107); CK-MB VALUE MASS 1.3 NG/ML (<3.6); CPK CREATINE PHOSPHOKINASE 150 U/L (46-171); CREATININE FOR GFR 1.16 MG/DL (0.70-1.30); GLOMERULAR FILTRATION RATE > 60.0 (>60); GLUCOSE, FASTING 170 MG/DL (60-100); MB/CK RELATIVE INDEX 0.86 (< OR =4); POTASSIUM SERUM 4.5 MMOL/L (3.5-5.1); SODIUM LEVEL 134 MMOL/L (136-145); TOTAL PROTEIN 7.4 G/DL (5.7-8.2)
[2023-12-13 13:50] LABS: RSV AMPLIFICATION NEGATIVE (NEGATIVE)
[2023-12-13] MEDS ORDERED: ISOVUE-370 76% 100ML VIAL As Ordered ONE (13:53)
[2023-12-13] MEDS ORDERED: OXYC10TA3 PO (15:26)
[2023-12-13 15:45] VITALS: BP 139/70; TEMP 98.5; O2SAT 95
== END 2023-12-13 16:11 | disposition home or self-care (01) ==
LOC: M ED 12:22
DX: K85.90 Acute pancreatitis without necrosis or infection, unspecified (principal); E10.9 Type 1 diabetes mellitus without complications; Z79.1 Long term (current) use of non-steroidal anti-inflammatories (NSAID); Z79.899 Other long term (current) drug therapy; Z79.4 Long term (current) use of insulin; Z79.810 Long term (current) use of selective estrogen receptor modulators (SERMs)
CPT/HCPCS: 74177; 80048; 80076; 82550; 82553; 83605; 83690; 85025; 87040; 87631; 93005; 93041; 96361; 96374; 99284; J2405; Q9967

== ENCOUNTER → 2024-03-01 | Outpatient (CLI) | payer OTHER ==
[~2024-03-01] MED LIST changes: +OXYC10TA3 PO; -ROSU40TA4 PO; +ROSU40TA63 PO
== END ==
LOC: M SOG 07:55
PROVIDERS: ATTEND Physician Assistant
DX: M79.641 Pain in right hand (principal)

== ENCOUNTER → 2024-03-28 | Outpatient (REF) | payer OTHER ==
[~2024-03-28] MED LIST changes: +D-10TAB3 PO; +DULO1CAP6 PO; +FURO20TA2 PO; +GLUC3SPR; +INSUHUMDS SC; +LISI20TA33 PO; +ONDA-282 PO; +PANT40TA29 PO; +THERTAB52 PO; +VENL75CA47 PO
[2024-03-28 19:20] LABS: BASO # 0.1 10^3/uL (0.0-0.2); BASO % 1.2 % (0.0-1.0); EOS # 0.2 10^3/uL (0.0-0.5); EOS % 2.3 % (0.0-3.0); HEMATOCRIT 41.6 % (42.0-52.0); HEMOGLOBIN 13.7 g/dl (13.5-17.5); LYMPH # 3.6 10^3/uL (1.5-5.0); LYMPH % 37.9 % (24.0-44.0); MEAN CORPUSCULAR HEMOGLOBIN 31.5 pg (27.0-33.0); MEAN CORPUSCULAR HGB CONC 32.9 g/dl (32.0-36.5); MEAN CORPUSCULAR VOLUME 95.6 fl (80.0-96.0); MONO % 10.3 % (2.0-8.0); NEUTROPHILS # 4.5 10^3/uL (1.5-8.5); NEUTROPHILS % 47.7 % (36.0-66.0); PLATELET COUNT, AUTOMATED 378 10^3/uL (150-450); RED BLOOD COUNT 4.35 10^6/uL (4.30-6.10); WHITE BLOOD COUNT 9.5 10^3/uL (4.0-10.0)
[2024-03-28 19:48] LABS: ALBUMIN 3.6 G/DL (3.2-5.2); ALKALINE PHOSPHATASE 66 U/L (46-116); ALT/SGPT 25 U/L (7.0-40); AST/SGOT 16 U/L (<34); BILIRUBIN,TOTAL 0.4 MG/DL (0.3-1.2); BLOOD UREA NITROGEN 24 MG/DL (9-23); CALCIUM LEVEL 9.4 MG/DL (8.5-10.1); CARBON DIOXIDE LEVEL 26 MMOL/L (20-31); CHLORIDE LEVEL 105 MMOL/L (98-107); CREATININE FOR GFR 1.06 MG/DL (0.70-1.30); GLOMERULAR FILTRATION RATE > 60.0 (>60); GLUCOSE, FASTING 345 MG/DL (60-100); SODIUM LEVEL 135 MMOL/L (136-145); TOTAL PROTEIN 7.1 G/DL (5.7-8.2)
== END ==
LOC: M SFHCADAM 13:33
PROVIDERS: ATTEND Family Medicine
DX: Z01.818 Encounter for other preprocedural examination (principal)

== ENCOUNTER 2024-04-02 09:49 | Day surgery (SDC) | payer OTHER ==
[~2024-04-02] VITALS: Ht 172.7 cm; Wt 93.3 kg
[2024-04-02] MEDS ORDERED: fentaNYL 100 MCG/2 ML INJECTION As Ordered ONE (09:51)
[2024-04-02] MEDS ORDERED: LIDOCAINE 2% 100MG/5ML SDV (FOR ANES.) As Ordered ONE (09:51)
[2024-04-02] MEDS ORDERED: propofoL 200 MG/20 ML VIAL As Ordered ONE (09:51)
[2024-04-02] MEDS ORDERED: KETOROLAC 60MG 2ML VIAL As Ordered ONE (09:51)
[2024-04-02] MEDS ORDERED: ONDANSETRON 4MG 2ML VIAL As Ordered ONE (09:51)
[2024-04-02] MEDS ORDERED: GLUCAGON INJ 1MG VIAL SC PRN (10:20)
[2024-04-02] MEDS ORDERED: LR 1,000 ML IV SCH (10:20)
[2024-04-02] MEDS ORDERED: GLUCOSE 4 GM CHEW PO PRN (10:20)
[2024-04-02] MEDS ORDERED: DEXTROSE 50% 50ML SYRINGE IV PRN (10:20)
[2024-04-02] MEDS: INSULIN LISPRO (NovoLOG) PER UNIT SC PRN (10:38)
[2024-04-02] MEDS ORDERED: KETAMINE HCL 200MG/20ML VIAL As Ordered ONE (10:56)
[2024-04-02 12:00] VITALS: BP 140/85; TEMP 97.3; O2SAT 97
== END 2024-04-02 12:10 | disposition home or self-care (01) ==
LOC: M SDC 09:49
PROVIDERS: ATTEND Orthopaedic Surgery Hand Surgery
DX: G56.01 Carpal tunnel syndrome, right upper limb (principal); E11.9 Type 2 diabetes mellitus without complications; I25.10 Atherosclerotic heart disease of native coronary artery without angina pectoris; I10 Essential (primary) hypertension; K21.9 Gastro-esophageal reflux disease without esophagitis; F32.A Depression, unspecified; G47.33 Obstructive sleep apnea (adult) (pediatric); Z79.4 Long term (current) use of insulin; Z79.82 Long term (current) use of aspirin; Z79.899 Other long term (current) drug therapy; Z96.41 Presence of insulin pump (external) (internal); Z87.891 Personal history of nicotine dependence
CPT/HCPCS: 29848; J0665; J2405; J3010

== ENCOUNTER → 2024-04-10 | Outpatient (CLI) | payer OTHER | LOC: M SOG 13:41 | PROVIDERS: ATTEND Physician Assistant | DX: M25.531 Pain in right wrist (principal); M79.641 Pain in right hand ==

== ENCOUNTER → 2024-04-11 | Outpatient (REF) | payer OTHER | LOC: M SFHCDERM 17:34 | PROVIDERS: ATTEND Physician Assistant | DX: L72.0 Epidermal cyst (principal) ==

== ENCOUNTER → 2024-04-16 | Outpatient (REF) | payer OTHER | LOC: M SFHCADAM 12:29 | PROVIDERS: ATTEND Family Medicine | DX: Z00.00 Encounter for general adult medical examination without abnormal findings (principal) ==

== ENCOUNTER 2024-05-08 11:48 | Emergency (ER) | payer OTHER ==
[~2024-05-08] VITALS: Ht 172.7 cm; Wt 92.9 kg
[2024-05-08 15:41] LABS: HEMOGLOBIN 13.3 g/dl (13.5-17.5); MEAN CORPUSCULAR HEMOGLOBIN 31.4 pg (27.0-33.0); MEAN CORPUSCULAR HGB CONC 34.1 g/dl (32.0-36.5); PLATELET COUNT, AUTOMATED 292 10^3/uL (150-450); RED BLOOD COUNT 4.24 10^6/uL (4.30-6.10); WHITE BLOOD COUNT 9.4 10^3/uL (4.0-10.0)
[2024-05-08 16:06] LABS: LIPASE 36 U/L (12-53)
[2024-05-08 16:09] LABS: ALBUMIN 3.5 G/DL (3.2-5.2); ALKALINE PHOSPHATASE 69 U/L (46-116); ALT/SGPT 65 U/L (7.0-40); AST/SGOT 42 U/L (<34); BILIRUBIN,DIRECT < 0.1 MG/DL (<0.4); BILIRUBIN,TOTAL 0.3 MG/DL (0.3-1.2); BLOOD UREA NITROGEN 17 MG/DL (9-23); CALCIUM LEVEL 9.1 MG/DL (8.5-10.1); CARBON DIOXIDE LEVEL 26 MMOL/L (20-31); CHLORIDE LEVEL 105 MMOL/L (98-107); CREATININE FOR GFR 0.95 MG/DL (0.70-1.30); GLOMERULAR FILTRATION RATE > 60.0 (>60); GLUCOSE, FASTING 114 MG/DL (60-100); SODIUM LEVEL 136 MMOL/L (136-145); TOTAL PROTEIN 7.2 G/DL (5.7-8.2)
[2024-05-08 16:38] LABS: ATYPICAL LYMPH 1 % (0-5); BASOPHILS 1 % (0-1); EOSINOPHILS 3 % (0-3); LYMPHOCYTES 37 % (16-44); MONOCYTES 16 % (0-5); NEUTROPHILS 42 % (28-66)
[2024-05-08 16:39] LABS: PLATELET ESTIMATE NORMAL (NORMAL)
[2024-05-08] MEDS: NS 1,000 ML IV ONE (17:13)
[2024-05-08] MEDS ORDERED: ISOVUE-370 76% 100ML VIAL As Ordered ONE (17:33)
[2024-05-08 19:43] VITALS: BP 140/86; TEMP 98.2; O2SAT 97
[2024-05-08] MEDS ORDERED: MIRA3350 PO (19:49)
== END 2024-05-08 19:56 | disposition home or self-care (01) ==
LOC: M ED 11:48
DX: K59.00 Constipation, unspecified (principal); R10.9 Unspecified abdominal pain; E11.9 Type 2 diabetes mellitus without complications; I10 Essential (primary) hypertension; E78.5 Hyperlipidemia, unspecified; Z79.1 Long term (current) use of non-steroidal anti-inflammatories (NSAID); Z79.4 Long term (current) use of insulin; Z79.810 Long term (current) use of selective estrogen receptor modulators (SERMs); Z79.899 Other long term (current) drug therapy
CPT/HCPCS: 74177; 80048; 80076; 81001; 83690; 85025; 96360; 96361; 99215; 99284; Q9967

== ENCOUNTER 2024-06-11 07:27 | Day surgery (SDC) | payer OTHER ==
[~2024-06-11] VITALS: Ht 172.7 cm; Wt 89.8 kg
[~2024-06-11 07:27] MED LIST changes: +MIRA3350 PO; -ROSU40TA63 PO; +ROSU40TA81 PO
[2024-06-11] MEDS ORDERED: propofoL 200 MG/20 ML VIAL As Ordered ONE (08:18)
[2024-06-11] MEDS ORDERED: LIDOCAINE 2% 100MG/5ML SDV (FOR ANES.) As Ordered ONE (08:18)
[2024-06-11] MEDS ORDERED: ONDANSETRON 4MG 2ML VIAL As Ordered ONE (08:18)
[2024-06-11] MEDS ORDERED: fentaNYL 100 MCG/2 ML INJECTION As Ordered ONE (08:19)
[2024-06-11] MEDS ORDERED: ACETAMINOPHEN 1000MG 100ML IV BAG As Ordered ONE (08:19)
[2024-06-11] MEDS ORDERED: KETOROLAC 60MG 2ML VIAL As Ordered ONE (08:19)
[2024-06-11] MEDS ORDERED: LR 1,000 ML IV SCH ×2 (08:20→10:00)
[2024-06-11] MEDS ORDERED: MIDAZOLAM INJ 2MG/2ML VIAL As Ordered ONE (08:23)
[2024-06-11] MEDS ORDERED: SCOPOLAMINE 1MG TRANSDERMAL PATCH TOP ONE (09:05)
[2024-06-11] MEDS ORDERED: SCOPOLAMINE 1MG TRANSDERMAL PATCH As Ordered ONE (09:07)
[2024-06-11] MEDS ORDERED: ePHEDrine SULFATE 25 MG/5 ML(5MG/ML) SYRINGE As Ordered ONE (09:40)
[2024-06-11] MEDS ORDERED: HYDROMORPHONE HCL 0.5 MG/ 0.5 ML SYRINGE IV PRN (10:00)
[2024-06-11] MEDS ORDERED: ONDANSETRON 4MG 2ML VIAL IV PRN (10:00)
[2024-06-11] MEDS ORDERED: fentaNYL 100 MCG/2 ML INJECTION IV PRN (10:00)
[2024-06-11] MEDS ORDERED: oxyCODONE 5MG TAB PO PRN (10:00)
[2024-06-11 10:58] VITALS: BP 153/97; TEMP 97.8; O2SAT 98
== END 2024-06-11 11:38 | disposition home or self-care (01) ==
LOC: M SDC 07:27
PROVIDERS: ATTEND Orthopaedic Surgery Hand Surgery
DX: G56.02 Carpal tunnel syndrome, left upper limb (principal); E11.9 Type 2 diabetes mellitus without complications; I10 Essential (primary) hypertension; E78.00 Pure hypercholesterolemia, unspecified; G47.30 Sleep apnea, unspecified; K86.1 Other chronic pancreatitis; Z79.4 Long term (current) use of insulin; Z96.41 Presence of insulin pump (external) (internal); Z79.899 Other long term (current) drug therapy; Z79.82 Long term (current) use of aspirin; Z79.891 Long term (current) use of opiate analgesic; Z90.411 Acquired partial absence of pancreas; Z90.49 Acquired absence of other specified parts of digestive tract; Z90.81 Acquired absence of spleen; Z90.5 Acquired absence of kidney; Z90.89 Acquired absence of other organs
CPT/HCPCS: 29848; J0131; J0665; J1100; J1885; J2250; J2405; J3010

== ENCOUNTER → 2024-08-07 | Outpatient (CLI) | payer OTHER ==
[~2024-08-07] MED LIST changes: +GABA-1172 PO; -GABA-282 PO
== END ==
LOC: M SOG 07:49
PROVIDERS: ATTEND Physician Assistant
DX: M25.511 Pain in right shoulder (principal)

== ENCOUNTER 2024-08-16 06:08 | Day surgery (SDC) | payer OTHER ==
[~2024-08-16] VITALS: Ht 167.6 cm; Wt 93.0 kg
[2024-08-16] MEDS ORDERED: NS 1,000 ML IV SCH ×2 (06:20→09:00)
[2024-08-16] MEDS ORDERED: MIDAZOLAM INJ 2MG/2ML VIAL As Ordered ONE (07:18)
[2024-08-16] MEDS ORDERED: ROCURONIUM BROMIDE 50MG/5ML VIAL As Ordered ONE (07:18)
[2024-08-16] MEDS ORDERED: LIDOCAINE 2% 100MG/5ML SDV (FOR ANES.) As Ordered ONE (07:18)
[2024-08-16] MEDS ORDERED: fentaNYL 100 MCG/2 ML INJECTION As Ordered ONE (07:18)
[2024-08-16] MEDS ORDERED: ONDANSETRON 4MG 2ML VIAL As Ordered ONE (07:18)
[2024-08-16] MEDS ORDERED: propofoL 200 MG/20 ML VIAL As Ordered ONE (07:18)
[2024-08-16] MEDS ORDERED: KETOROLAC 60MG 2ML VIAL As Ordered ONE (07:19)
[2024-08-16] MEDS ORDERED: SUGAMMADEX SODIUM 500 MG/5 ML VIAL (BRIDION) As Ordered ONE (07:22)
[2024-08-16] MEDS: SCOPOLAMINE 1MG TRANSDERMAL PATCH TOP ONE (07:24)
[2024-08-16] MEDS: ceFAZolin SOD 2 GM in IV 1 EA IV ONE (07:37)
[2024-08-16] MEDS ORDERED: dexmedeTOMIDine (4MCG/ML)200MCG/50ML BTL (PRECEDEX) As Ordered ONE (07:59)
[2024-08-16] MEDS ORDERED: PHENYLephrine 500MCG 5ML (100MCG/ML) SYRINGE As Ordered ONE (08:14)
[2024-08-16] MEDS ORDERED: VASOPRESSIN INJ 20UNITS/ML 1ML VIAL As Ordered ONE (08:26)
[2024-08-16] MEDS ORDERED: fentaNYL 100 MCG/2 ML INJECTION IV PRN (09:00)
[2024-08-16] MEDS: HYDROMORPHONE HCL 0.5 MG/ 0.5 ML SYRINGE IV PRN (09:33)
[2024-08-16] MEDS: oxyCODONE 5MG TAB PO PRN (10:16)
[2024-08-16] MEDS: ONDANSETRON 4MG 2ML VIAL IV PRN (10:16)
[2024-08-16] MEDS ORDERED: NORCO, ANEXSIA 5/325MG TABLET (HYDROcodone/ACETAMINOPHEN) PO PRN (10:40)
[2024-08-16 10:45] VITALS: BP 109/66; TEMP 97.7; O2SAT 95
== END 2024-08-16 10:53 | disposition home or self-care (01) ==
LOC: M SDC 06:08
PROVIDERS: ATTEND Surgery
DX: K43.0 Incisional hernia with obstruction, without gangrene (principal); K66.0 Peritoneal adhesions (postprocedural) (postinfection); G47.30 Sleep apnea, unspecified; Z79.899 Other long term (current) drug therapy
CPT/HCPCS: 49594; C1781; J0665; J0690; J1100; J1171; J1885; J2250; J2371; J2405; J2598; J3010; S2900

== ENCOUNTER → 2024-10-04 | Outpatient (POV) | payer OTHER ==
[2024-10-04 11:45] VITALS: BP 140/83; O2SAT 98
== END ==
LOC: M IRPOV 11:31
PROVIDERS: ATTEND Radiology Diagnostic Radiology
DX: K86.1 Other chronic pancreatitis (principal); R10.9 Unspecified abdominal pain; G89.29 Other chronic pain; Z79.4 Long term (current) use of insulin; Z79.82 Long term (current) use of aspirin; Z79.899 Other long term (current) drug therapy; Z90.49 Acquired absence of other specified parts of digestive tract; Z90.411 Acquired partial absence of pancreas; Z90.5 Acquired absence of kidney; Z87.19 Personal history of other diseases of the digestive system

== ENCOUNTER → 2024-11-05 | Outpatient (CLI) | payer OTHER | LOC: M ADAMS 13:51 | PROVIDERS: ATTEND Family Medicine | DX: Z01.818 Encounter for other preprocedural examination (principal) ==

== ENCOUNTER → 2024-11-05 | Outpatient (REF) | payer OTHER ==
[2024-11-05 17:08] LABS: ALBUMIN 4.1 G/DL (3.2-5.2); ALKALINE PHOSPHATASE 56 U/L (40-129); ALT/SGPT 43 U/L (7.0-40); AST/SGOT 34 U/L (<34); BILIRUBIN,TOTAL 0.3 MG/DL (0.3-1.2); BLOOD UREA NITROGEN 26 MG/DL (9-23); CALCIUM LEVEL 9.6 MG/DL (8.5-10.1); CARBON DIOXIDE LEVEL 29 MMOL/L (20-31); CHLORIDE LEVEL 102 MMOL/L (98-107); CREATININE FOR GFR 1.17 MG/DL (0.70-1.30); GLOMERULAR FILTRATION RATE > 60.0 (>60); GLUCOSE, FASTING 184 MG/DL (60-100); POTASSIUM SERUM 5.4 MMOL/L (3.5-5.1); SODIUM LEVEL 138 MMOL/L (136-145); TOTAL PROTEIN 7.7 G/DL (5.7-8.2)
[2024-11-05 17:17] LABS: INR 0.85
[2024-11-05 17:20] LABS: BASO # 0.1 10^3/uL (0.0-0.2); BASO % 0.8 % (0.0-1.0); EOS # 0.3 10^3/uL (0.0-0.5); EOS % 2.1 % (0.0-3.0); HEMOGLOBIN 13.7 g/dl (13.5-17.5); LYMPH # 7.8 10^3/uL (1.5-5.0); LYMPH % 54.8 % (24.0-44.0); MEAN CORPUSCULAR HEMOGLOBIN 31.8 pg (27.0-33.0); MEAN CORPUSCULAR HGB CONC 34.3 g/dl (32.0-36.5); MEAN CORPUSCULAR VOLUME 92.8 fl (80.0-96.0); MONO # 1.4 10^3/uL (0.0-0.8); MONO % 9.6 % (2.0-8.0); NEUTROPHILS # 4.6 10^3/uL (1.5-8.5); NEUTROPHILS % 32.4 % (36.0-66.0); PLATELET COUNT, AUTOMATED 338 10^3/uL (150-450); RED BLOOD COUNT 4.31 10^6/uL (4.30-6.10); WHITE BLOOD COUNT 14.2 10^3/uL (4.0-10.0)
[2024-11-05 18:01] LABS: HEMOGLOBIN A1c 8.4 % (4.0-6.0)
== END ==
LOC: M SFHCADAM 13:48
PROVIDERS: ATTEND Family Medicine
DX: Z01.818 Encounter for other preprocedural examination (principal); E11.69 Type 2 diabetes mellitus with other specified complication

== ENCOUNTER → 2024-12-19 | Outpatient (POV) | payer OTHER ==
[~2024-12-19] VITALS: Ht 172.7 cm; Wt 95.7 kg
[2024-12-19 14:50] VITALS: BP 162/92; O2SAT 96
== END ==
LOC: M IRPOV 14:35
PROVIDERS: ATTEND Radiology Diagnostic Radiology
DX: R10.9 Unspecified abdominal pain (principal); Z90.5 Acquired absence of kidney; Z90.49 Acquired absence of other specified parts of digestive tract; Z90.411 Acquired partial absence of pancreas; Z90.89 Acquired absence of other organs; Z98.890 Other specified postprocedural states

== ENCOUNTER → 2025-01-24 | Outpatient (REF) | payer OTHER ==
[~2025-01-24] MED LIST changes: +GABA-1490 PO
[2025-01-24 12:54] LABS: BASO # 0.1 10^3/uL (0.0-0.2); BASO % 0.7 % (0.0-1.0); EOS # 0.5 10^3/uL (0.0-0.5); EOS % 2.7 % (0.0-3.0); HEMATOCRIT 43.1 % (42.0-52.0); HEMOGLOBIN 14.6 g/dl (13.5-17.5); LYMPH # 10.6 10^3/uL (1.5-5.0); LYMPH % 64.8 % (24.0-44.0); MEAN CORPUSCULAR HEMOGLOBIN 32.2 pg (27.0-33.0); MEAN CORPUSCULAR HGB CONC 33.9 g/dl (32.0-36.5); MEAN CORPUSCULAR VOLUME 95.1 fl (80.0-96.0); MONO # 1.6 10^3/uL (0.0-0.8); MONO % 9.9 % (2.0-8.0); NEUTROPHILS # 3.5 10^3/uL (1.5-8.5); NEUTROPHILS % 21.6 % (36.0-66.0); PLATELET COUNT, AUTOMATED 326 10^3/uL (150-450); RED BLOOD COUNT 4.53 10^6/uL (4.30-6.10); WHITE BLOOD COUNT 16.4 10^3/uL (4.0-10.0)
[2025-01-24 13:05] LABS: INR 0.89; PROTHROMBIN TIME 12.4 SECONDS (12.5-14.5)
[2025-01-24 13:23] LABS: ALBUMIN 4.2 G/DL (3.2-5.2); BILIRUBIN,TOTAL 0.5 MG/DL (0.3-1.2); CALCIUM LEVEL 10.2 MG/DL (8.5-10.1); CREATININE FOR GFR 1.25 MG/DL (0.70-1.30); GLOMERULAR FILTRATION RATE 70.6 (>60); POTASSIUM SERUM 5.9 MMOL/L (3.5-5.1); TOTAL PROTEIN 7.8 G/DL (5.7-8.2)
== END ==
LOC: M SFHCADAM 08:04
PROVIDERS: ATTEND Family Medicine
DX: Z01.818 Encounter for other preprocedural examination (principal)

== ENCOUNTER → 2025-04-25 | Outpatient (REF) | payer OTHER ==
[~2025-04-25] MED LIST changes: -GLUC3SPR; +GLUC3SPR5; +LISI40TA10 PO; -LISI40TA4 PO; +MEDR4PAK PO
== END ==
LOC: M LAB REF 14:53
PROVIDERS: ATTEND Internal Medicine Nephrology
DX: E11.21 Type 2 diabetes mellitus with diabetic nephropathy (principal)

== ENCOUNTER 2025-06-10 13:43 | Emergency (ER) | payer OTHER ==
[~2025-06-10] VITALS: Ht 172.7 cm; Wt 93.0 kg
[2025-06-10 14:50] LABS: BASO # 0.1 10^3/uL (0.0-0.2); BASO % 0.8 % (0.0-1.0); EOS # 0.5 10^3/uL (0.0-0.5); EOS % 3.2 % (0.0-3.0); LYMPH # 6.3 10^3/uL (1.5-5.0); LYMPH % 39.7 % (24.0-44.0); MONO # 1.4 10^3/uL (0.0-0.8); MONO % 8.7 % (2.0-8.0); NEUTROPHILS # 7.5 10^3/uL (1.5-8.5); NEUTROPHILS % 47.1 % (36.0-66.0); PLATELET COUNT, AUTOMATED 310 10^3/uL (150-450)
[2025-06-10 15:22] LABS: CPK CREATINE PHOSPHOKINASE 102.0 U/L (46-171)
[2025-06-10 15:26] LABS: ALT/SGPT 21.0 U/L (7.0-40); AST/SGOT 22.0 U/L (<34); CALCIUM LEVEL 7.8 MG/DL (8.5-10.1); CARBON DIOXIDE LEVEL 24.0 MMOL/L (20-31); CHLORIDE LEVEL 110.0 MMOL/L (98-107); CK-MB VALUE MASS 3.5 NG/ML (<3.6); CREATININE FOR GFR 1.16 MG/DL (0.70-1.30); GLOMERULAR FILTRATION RATE 77.2 (>60); MB/CK RELATIVE INDEX 3.43 (< OR =4); POTASSIUM SERUM 3.9 MMOL/L (3.5-5.1); SODIUM LEVEL 143.0 MMOL/L (136-145)
[2025-06-10] MEDS ORDERED: ISOVUE-370 76% 100 ML VIAL As Ordered ONE (15:57)
[2025-06-10 16:09] LABS: CK-MB VALUE MASS 9.6 NG/ML (<3.6)
[2025-06-10 16:11] LABS: CPK CREATINE PHOSPHOKINASE 149.0 U/L (46-171); MB/CK RELATIVE INDEX 6.44 (< OR =4)
[2025-06-10] MEDS ORDERED: HEPARIN SOD 5000 UNITS/ML 1 ML VIAL/SYRINGE IV PRN (16:55)
[2025-06-10 16:56] LABS: INR 0.91
[2025-06-10] MEDS: NITROGLYCERIN 0.4 MG SUBL TABLET SL PRN (17:01)
[2025-06-10] MEDS: ASPIRIN 81 MG CHEWABLE TABLET PO ONE (17:01)
[2025-06-10] MEDS: HEPARIN SOD 5000 UNITS/ML 1 ML VIAL/SYRINGE IV ONE (17:45)
[2025-06-10 17:52] VITALS: BP 102/66
[2025-06-10] MEDS: HEPARIN DRIP 25,000 UNITS in IV 1 EA IV SCH (17:52)
[2025-06-10 20:01] VITALS: BP 101/67; TEMP 98.3; O2SAT 98
== END 2025-06-10 20:17 | disposition short-term general hospital (02) ==
LOC: M ED 13:43
DX: I21.4 Non-ST elevation (NSTEMI) myocardial infarction (principal); I44.0 Atrioventricular block, first degree; E11.9 Type 2 diabetes mellitus without complications; I50.22 Chronic systolic (congestive) heart failure; G47.33 Obstructive sleep apnea (adult) (pediatric); I11.0 Hypertensive heart disease with heart failure; E78.5 Hyperlipidemia, unspecified; Z87.891 Personal history of nicotine dependence; Z79.1 Long term (current) use of non-steroidal anti-inflammatories (NSAID); Z79.4 Long term (current) use of insulin; Z79.899 Other long term (current) drug therapy; Z79.810 Long term (current) use of selective estrogen receptor modulators (SERMs)
CPT/HCPCS: 71045; 71275; 80048; 80076; 82550; 82553; 83690; 84484; 85025; 85610; 85730; 93005; 93041; 94760; 96365; 96366; 96375; 99285; Q9967

== ENCOUNTER → 2025-07-16 | Outpatient (CLI) | payer OTHER ==
[2025-07-16 12:42] LABS: BASO # 0.1 10^3/uL (0.0-0.2); BASO % 0.9 % (0.0-1.0); EOS # 0.5 10^3/uL (0.0-0.5); EOS % 3.5 % (0.0-3.0); LYMPH # 7.3 10^3/uL (1.5-5.0); LYMPH % 49.3 % (24.0-44.0); MONO # 1.4 10^3/uL (0.0-0.8); MONO % 9.3 % (2.0-8.0); NEUTROPHILS # 5.4 10^3/uL (1.5-8.5); NEUTROPHILS % 36.8 % (36.0-66.0); PLATELET COUNT, AUTOMATED 303 10^3/uL (150-450)
== END ==
LOC: M WUC 09:40
DX: S61.012A Laceration without foreign body of left thumb without damage to nail, initial encounter (principal); D68.9 Coagulation defect, unspecified; Y92.9 Unspecified place or not applicable; Y93.9 Activity, unspecified; Y99.9 Unspecified external cause status; X58.XXXA Exposure to other specified factors, initial encounter